=== PATIENT | male | born 1950 | race Caucasian/White ===

== ENCOUNTER → 2017-04-15 | Outpatient (CLI) | payer MEDICARE ==
--- NOTE | 2017-04-16 15:24 | XR ---
EXAMINATION TYPE: XR knee complete RT DATE OF EXAM: 04/15/2017 COMPARISON: NONE HISTORY: Right knee pain TECHNIQUE: Three-view right knee FINDINGS: Joint spaces are preserved. Medial and lateral tibial plateau and femoral condylar spurring is present. Medial distal vascular clips are present. No joint effusion is evident. IMPRESSIONS: 1. Mild degenerative changes right knee.
== END | disposition home or self-care (01) ==
LOC: RADXRYALE 14:27
PROVIDERS: ATTEND Internal Medicine Infectious Disease
DX: M17.11 Unilateral primary osteoarthritis, right knee (principal)

== ENCOUNTER → 2018-07-09 | Outpatient (CLI) | payer MEDICARE ==
[2018-07-09 15:15] LABS: HCT 37.5 % (39.0-53.0); HGB 12.7 gm/dL (13.0-17.5); MCH 27.9 pg (25.0-35.0); MCHC 33.9 g/dL (31.0-37.0); MCV 82.4 fL (80.0-100.0); Mean Platelet Volume 6.7; Platelet Count 137 k/uL (150-450); RBC 4.55 m/uL (4.30-5.90); RDW 14.1 % (11.5-15.5); WBC 6.2 k/uL (3.8-10.6)
[2018-07-09 15:22] LABS: ALT 29 U/L (21-72); AST 23 U/L (17-59); Albumin 3.9 g/dL (3.5-5.0); Alkaline Phosphatase 74 U/L (38-126); Anion Gap 6 mmol/L; Blood Urea Nitrogen 19 mg/dL (9-20); Calcium 9.5 mg/dL (8.4-10.2); Carbon Dioxide 29 mmol/L (22-30); Chloride 104 mmol/L (98-107); Glucose 176 mg/dL (74-99); Potassium 4.6 mmol/L (3.5-5.1); Sodium 139 mmol/L (137-145); Total Bilirubin 1.4 mg/dL (0.2-1.3); Total Protein 7.6 g/dL (6.3-8.2)
[2018-07-09 16:02] LABS: Erythrocyte Sedimentation Rate 51 mm/hr (0-15)
--- NOTE | 2018-07-09 17:52 | US ---
Exam: LOWER EXTREMITY VENOUS INSUFFICIENCY DATE: 07/09/2018. SIDE PERFORMED: Left FINDINGS: 1) Color flow is present and patency is documented in the following vessels. No DVT or SVT is noted . EIV Common Femoral Vein Deep Femoral Vein Femoral Vein Popliteal Vein Greater Saph Vein Upper Small Saph Vein 2) There is venous reflux noted at the following venous levels: EIV, GSV, CFV, DFV, lower femoral v ein, and mid popliteal vein. IMPRESSION: 1. No evidence for DVT within the left lower extremity imaged from the groin to the knee. 2. Venous reflux noted throughout portions of the left lower extremity as outlined above.
[2018-07-10 04:00] LABS: Hemoglobin A1C 7.9 % (4.0-6.0)
== END | disposition home or self-care (01) ==
LOC: RADUSWWP 13:14
PROVIDERS: ATTEND Internal Medicine Infectious Disease
DX: I87.2 Venous insufficiency (chronic) (peripheral) (principal); M79.605 Pain in left leg
CPT/HCPCS: 36415; 80053; 83036; 84134; 85027; 85652; 93923

== ENCOUNTER → 2019-07-13 | Outpatient (CLI) | payer MEDICARE ==
--- NOTE | 2019-07-13 10:34 | XR ---
EXAMINATION TYPE: XR knee complete LT DATE OF EXAM: 07/13/2019 CLINICAL HISTORY: Chronic left knee pain. Chronic venous hypertension with ulcer and inflammation. TECHNIQUE: Three views of the left knee are obtained. COMPARISON: None. FINDINGS: There is no acute fracture/dislocation evident in left knee. Mild narrowing medial tibiofe moral and patellofemoral compartments. Overlying PA and material distal femur level with punctate den sities could reflect soft tissue foreign body versus overlying foreign body. Correlate clinically. Va scular calcification below the knee is noted. IMPRESSION: As above.
[2019-07-13 11:48] LABS: Anisocytosis Slight; Basophils # (A) 0.1 k/uL (0-0.2); Basophils % (A) 1 %; Eosinophils # (A) 0.4 k/uL (0-0.7); Eosinophils % (A) 5 %; HCT 36.9 % (39.0-53.0); HGB 12.4 gm/dL (13.0-17.5); Lymphocytes # (A) 1.5 k/uL (1.0-4.8); Lymphocytes % (A) 19 %; MCH 28.4 pg (25.0-35.0); MCHC 33.5 g/dL (31.0-37.0); MCV 84.7 fL (80.0-100.0); Mean Platelet Volume 7.1; Monocytes # (A) 0.4 k/uL (0-1.0); Monocytes % (A) 5 %; Neutrophils # (A) 5.2 k/uL (1.3-7.7); Neutrophils % (A) 68 %; Platelet Count 154 k/uL (150-450); RBC 4.36 m/uL (4.30-5.90); WBC 7.7 k/uL (3.8-10.6)
[2019-07-13 12:46] LABS: Erythrocyte Sedimentation Rate 43 mm/hr (0-15)
[2019-07-13 16:10] LABS: African American GFR (CKD) 78.4 (60.0-200.0); Albumin 3.9 g/dL (3.80-4.90); Albumin/Globulin Ratio 1.44 (1.60-3.17); Anion Gap 5.3 mmol/L (4.00-12.00); BUN/Creat Ratio 14.55 Ratio (12.00-20.00); C Reactive Protein 0.7 mg/dL (0.0-0.8); Calcium 9.2 mg/dL (8.7-10.3); Carbon Dioxide 28.7 mmol/L (21.6-31.8); Globulin 2.7 g/dL (1.6-3.3); Potassium 4.9 mmol/L (3.5-5.5); Total Bilirubin 1.2 mg/dL (0.3-1.2); Total Protein 6.6 g/dL (6.2-8.2)
[2019-07-13 19:33] LABS: Hemoglobin A1C 8.7 % (4.0-6.0)
== END | disposition home or self-care (01) ==
LOC: LABWHC1 10:04
PROVIDERS: ATTEND Internal Medicine Infectious Disease
DX: M89.8X0 Other specified disorders of bone, multiple sites (principal); M85.88 Other specified disorders of bone density and structure, other site; I99.8 Other disorder of circulatory system; I87.333 Chronic venous hypertension (idiopathic) with ulcer and inflammation of bilateral lower extremity; E11.621 Type 2 diabetes mellitus with foot ulcer
CPT/HCPCS: 36415; 80053; 83036; 84134; 85025; 85652; 86140

== ENCOUNTER → 2020-01-12 | Outpatient (CLI) | payer MEDICARE ==
--- NOTE | 2020-01-12 11:16 | US ---
LOWER EXTREMITY VENOUS INSUFFICIENCY CLINICAL HISTORY: L97.922 NONPRESSURE CHRONIC ULCER OF UNSPECIFIED P. SIDE PERFORMED: bilateral Comparison: Prior bilateral lower extremity venous ultrasound April 20, 2015 and left lower extremity ultrasound July 09, 2018. 1) Color flow is present and patency is documented in the following vessels. No DVT or SVT is noted . EIV Common Femoral Vein Deep Femoral Vein Femoral Vein Popliteal Vein Proximal Calf Veins, not seen due to obesity and swelling Greater Saph Vein Upper Small Saph Vein, not seen due to obesity and swelling 2) There is venous reflux noted at the following venous levels: RIGHT: mild in EIV, GSV, CFV, DFV, FV prox, LEFT:EIV, GSV, CFV, DFV, FV prox, pop distal IMPRESSION: Suboptimal study due to patient's body habitus and subcutaneous edema. Visualized portion s both lower extremities show no acute DVT. Significant bilateral venous reflux noted during real balbir e scanning as documented above.
--- NOTE | 2020-01-13 11:05 | P.ARTDOP ---
Arterial Doppler LOWER EXTREMITY ARTERIAL DOPPLER: DATE OF SERVICE: 01/12/2020 Reason for study: Left calf ulcer. Doppler waveforms: Multiphasic bilaterally throughout. Pulse volume recording: Normal configurations. Pressure gradients: None. Ankle-brachial indices: Greater than 1 bilaterally. Toe brachial indices: 0.94 on the right, 0.75 on the left Impression: Normal study.
== END | disposition home or self-care (01) ==
LOC: RADUSWWP 09:09
PROVIDERS: ATTEND Internal Medicine Infectious Disease
DX: I87.312 Chronic venous hypertension (idiopathic) with ulcer of left lower extremity (principal); L97.922 Non-pressure chronic ulcer of unspecified part of left lower leg with fat layer exposed; E11.622 Type 2 diabetes mellitus with other skin ulcer
CPT/HCPCS: 93923; 93970

== ENCOUNTER → 2020-07-18 | Outpatient (CLI) | payer MEDICARE | END | disposition home or self-care (01) | LOC: LABWHC1 08:59 | DX: E03.9 Hypothyroidism, unspecified (principal) | CPT/HCPCS: 36415; 84439; 84443 ==

== ENCOUNTER 2022-04-01 17:08 | Observation (INO) | payer MEDICARE ==
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
[2022-04-01 17:46] LABS: Basophils # (A) 0.2 k/uL (0-0.2); Basophils % (A) 2 %; Eosinophils # (A) 0.4 k/uL (0-0.7); Eosinophils % (A) 4 %; HCT 40.2 % (39.0-53.0); HGB 13.2 gm/dL (13.0-17.5); Lymphocytes # (A) 1.3 k/uL (1.0-4.8); Lymphocytes % (A) 15 %; MCH 29.6 pg (25.0-35.0); MCHC 32.8 g/dL (31.0-37.0); MCV 90.3 fL (80.0-100.0); Monocytes # (A) 0.3 k/uL (0-1.0); Monocytes % (A) 3 %; Neutrophils # (A) 6.5 k/uL (1.3-7.7); Neutrophils % (A) 75 %; Platelet Count 138 k/uL (150-450); RBC 4.45 m/uL (4.30-5.90); RDW 13.8 % (11.5-15.5); WBC 8.7 k/uL (3.8-10.6)
[2022-04-01 17:54] LABS: INR 1.1 (<1.2); Partial Thromboplastin Time 24.1 sec (22.0-30.0); Prothrombin Time 11.6 sec (9.0-12.0)
[2022-04-01 17:55] LABS: ALT 36 U/L (4-49); AST 67 U/L (17-59); African American GFR (CKD) 61 (>60 ml/min/1.73 sqM); Albumin 4.1 g/dL (3.5-5.0); Alcohol <10 mg/dL; Alkaline Phosphatase 54 U/L (38-126); Anion Gap 8 mmol/L; Blood Urea Nitrogen 17 mg/dL (9-20); Calcium 8.7 mg/dL (8.4-10.2); Carbon Dioxide 27 mmol/L (22-30); Chloride 100 mmol/L (98-107); Glucose 284 mg/dL (74-99); Non-African American GFR(CKD) 53 (>60 ml/min/1.73 sqM); Potassium 4.6 mmol/L (3.5-5.1); Sodium 135 mmol/L (137-145); Total Bilirubin 1.3 mg/dL (0.2-1.3); Total Protein 7.3 g/dL (6.3-8.2)
--- NOTE | 2022-04-01 18:53 | CT ---
EXAMINATION TYPE: CT brain wo con DATE OF EXAM: 04/01/2022 COMPARISON: None HISTORY: AMS CT DLP: 1172.4 mGycm Automated exposure control for dose reduction was used. There is cerebral cortical atrophy. There is no mass effect or midline shift. No sign of intracranial hemorrhage. Calvarium is intact. There is normal aeration of the mastoid sinuses. IMPRESSION: Cerebral atrophy. No acute intracranial abnormality.
--- NOTE | 2022-04-01 18:54 | XR ---
EXAMINATION TYPE: XR chest 1V portable DATE OF EXAM: 04/01/2022 COMPARISON: 01/23/2016 HISTORY: Altered mental status TECHNIQUE: FINDINGS: There is no heart failure nor confluent pneumonic infiltrate. Costophrenic angles are clear . There are sternal wires. There are chest leads. IMPRESSION: No active cardiopulmonary disease. No change.
[2022-04-01 19:02] LABS: T4, Free (Free Thyroxine) <0.07 ng/dL (0.78-2.19)
[2022-04-01] MEDS ORDERED: LEVOTHYROXINE IVP 100 MCG/5 ML VIAL IV STA (19:29)
[2022-04-01 19:38] LABS: Acetaminophen <10.0 ug/mL; Salicylate <1.0 mg/dL
[2022-04-01] MEDS ORDERED: NALOXONE 0.4 MG/ML 1 ML VIAL IV PRN (19:46)
[2022-04-01] MEDS: SODIUM CHLORIDE 0.9% 1,000 ML IV SCH (22:51)
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
[2022-04-02 07:47] LABS: Glucose,Whole Blood 201 mg/dL (75-99)
[2022-04-02] MEDS: METOPROLOL TARTRATE 50 MG TAB PO SCH ×2 (08:17→20:14)
[2022-04-02] MEDS: DOXAZOSIN 4 MG TAB PO SCH (08:17)
[2022-04-02] MEDS: TAMSULOSIN 0.4 MG CAP.ER.24H PO SCH (08:17)
[2022-04-02] MEDS: ATORVASTATIN 40 MG TAB PO SCH (08:17)
[2022-04-02] MEDS: HEPARIN SODIUM,PORCINE/PF 5,000 UNIT/0.5 ML SYRINGE SQ SCH ×2 (08:17→17:43)
[2022-04-02] MEDS: SODIUM CHLORIDE 0.9% 1,000 ML IV SCH ×2 (09:45→20:13)
[2022-04-02] MEDS: LEVOTHYROXINE IVP 100 MCG/5 ML VIAL IV SCH (09:45)
--- NOTE | 2022-04-02 10:26 | P.PN ---
Subjective Progress Note Date: 04/02/22 Hospital course: Patient is a 71-year-old male with a past medical history of CAD with CABG, hypertension, hyperlipidemia, hypothyroidism, BPH, and insulin-dependent diabetes mellitus. Patient was brought to the ER secondary to altered mental status after his daughter reportedly found him in the chair minimally responsive and called EMS for transport to ER. He underwent full evaluation in the ER. CT head negative for acute intercranial process. Chest x-ray negative for acute c ardiopulmonary process. EKG showing sinus rhythm at 61 bpm with a first-degree AV block with MS interval of 243 ms. CBC unremarkable. Coags unremarkable. And CMP showing no significant abnormalities with the exception of mildly elevated creatinine of 1.33, hyperglycemia with glucose of 284, and elevated AST of 67. Troponin was negative at less than 0.012. Acetaminophen, salicylates, and alcohol all negative. Patient was found to have severe hypothyroidism with TSH of 65.200 and free T4 of less than 0.07. Patient started on IV Synthroid and admitted under our services. Physical exam: Patient seen and fully evaluated at bedside this morning. Patient was sitting up on the edge of bed he was alert to person, place, time, and situation. Patient has full mentation in place. Patient reports memory deficits from yesterday does not fully recall eating events leading up to coming to the hospital. Patient reports he remembers being in an ambulance, but otherwise has a lot of memory loss in regards to time. Currently patient denies having any complaints including headache, lightheadedness, dizziness, chest pain, palpitations, shortness of breath, cough or congestion, abdominal pain, nausea, vomiting, or experiencing any numbness/tingling/weakness in his extremities. Patient ambulatory with a steady gait and room. Patient reports he does have a history of hypothyroidism and was on Synthroid but states there is a strong possibility that he has not been taking that medication. Vital signs reviewed and stable. General: Nontoxic, no distress and appears stated age. Derm: Skin warm and dry, normal coloration for ethnicity. Head: Atraumatic, normocephalic and symmetric. Eyes: EOMs intact, no lid lag, and anicteric sclera Mouth: no lip lesions, mucus membranes moist Cardiovascular: regular rate and rhythm with normal S1S2, no murmur, positive posterior tibial pulses bilaterally, and cap refill < 2 seconds. Lungs: Respirations even, regular, and unlabored on room air. Lungs CTA bilaterally, no rhonchi, no rales, no wheezing, and no accessory muscle usage. Abdominal: soft, nontender to palpation, no guarding, no appreciable organomegaly Ext: ROM intact. No gross muscle atrophy, no edema, no contractures Neuro: Speech clear, face symmetrical and CN II-XII grossly intact with no noted focal neuro deficits Psych: Alert and oriented to person, place, time, and situation. Appropriate and pleasant affect. Assessment and Plan of Care: Acute metabolic encephalopathy secondary to severe hypothyroidism Severe hypothyroidism -Continue IV Synthroid may transition to oral Synthroid tomorrow morning. -Severe hypothyroidism likely secondary to noncompliance with home medication regimen as patient states there is a strong possibility that he was not taking t his medication. -Metabolic encephalopathy has resolved. History of CAD status post CABG Hypertension Hyperlipidemia -Continue daily medication regimen with atorvastatin and metoprolol. Insulin-dependent diabetes mellitus -Hold metformin, continue NPH 50 units daily along with glycemic protocol and NovoLog sliding scale. BPH -Continue daily medication regimen with CODE STATUS: Full code DVT prophylaxis: Heparin Discussed with: Patient and RN Anticipated discharge date: Tomorrow Anticipated discharge place: Home A total of 40 minutes was spent on the care of this complex patient more than 50 % of the time was spent in counseling and care coordination.I reviewed the documentation as provided by the SUZE above, who is the original author of this note. I agree with the documented assessment and plan, with the following changes: none Objective - Vital Signs Vital signs: Vital Signs Temp 98.0 F 04/02/22 07:45 Pulse 65 04/02/22 07:45 Resp 18 04/02/22 07:45 BP 101/65 04/02/22 07:45 Pulse Ox 92 L 04/02/22 07:45 FiO2 Intake & Output 04/01/22 04/02/22 04/02/22 18:59 06:59 18:59 Weight 136.078 kg 136.078 kg Other: Voiding Method Toilet # Voids 1 - Labs CBC & Chem 7: 04/01/22 17:35 04/01/22 17:35 Labs: Abnormal Lab Results - Last 24 Hours (Table) 04/01/22 04/01/22 04/02/22 Range/Units 17:35 17:35 07:46 Plt Count 138 L (150-450) k/uL Sodium 135 L (137-145) mmol/L Creatinine 1.33 H (0.66-1.25) mg/dL Glucose 284 H (74-99) mg/dL POC Glucose (mg/dL) 201 H (75-99) mg/dL AST 67 H (17-59) U/L TSH 65.200 H (0.465-4.680) mIU/L Free T4 <0.07 L (0.78-2.19) ng/dL
[2022-04-02 12:17] LABS: Glucose,Whole Blood 274 mg/dL (75-99)
[2022-04-02 17:26] LABS: Glucose,Whole Blood 321 mg/dL (75-99)
[2022-04-02] MEDS: INSULIN ASPART (NovoLOG) 100 UNIT/ML VIAL SQ SCH ×2 (17:43→21:08)
[2022-04-02 20:50] LABS: Glucose,Whole Blood 251 mg/dL (75-99)
[2022-04-03] MEDS: HEPARIN SODIUM,PORCINE/PF 5,000 UNIT/0.5 ML SYRINGE SQ SCH ×2 (00:24→08:51)
[2022-04-03 01:43] VITALS: PULSE 55
[2022-04-03 07:20] LABS: Glucose,Whole Blood 255 mg/dL (75-99)
[2022-04-03] MEDS: INSULIN ASPART (NovoLOG) 100 UNIT/ML VIAL SQ SCH (07:53)
[2022-04-03 07:55] VITALS: BP 114/59; RESP 14; TEMP 97.8
--- NOTE | 2022-04-03 08:21 | P.DS ---
Providers Date of admission: 04/01/22 19:46 Expected date of discharge: 04/03/22 Attending physician: Dave Hemphill MD Primary care physician: Stated None Hospital Course: Discharge Diagnosis: Acute metabolic encephalopathy secondary to severe hypothyroidism, metabolic encephalopathy completely resolved patient back to baseline mentation alert and oriented to person, time, place, and situation with no neurological deficits. Severe hypothyroidism, patient received 3 doses of IV level thyroxine and discharged home on levothyroxine 100 g daily. He was instructed he will need to follow up outpatient with his PCP in 1-2 days and recommended to establish care with an network support technician as well. Patient will need repeat labs for TSH levels in 4-6 weeks. History of CAD status post CABG Hypertension, continue daily medication regimen with metoprolol. Hyperlipidemia, continue daily medication management with atorvastatin. Insulin-dependent diabetes mellitus, continue daily medication regimen with metformin. BPH Continue daily medication regimen with Terazosin. Hospital Course: Patient is a 71-year-old male with a past medical history of CAD with CABG, hypertension, hyperlipidemia, hypothyroidism, BPH, and insulin-dependent diabetes mellitus. Patient was brought to the ER secondary to altered mental status after his daughter reportedly found him in the chair minimally responsive and called EMS for transport to ER. He underwent full evaluation in the ER. CT head negative for acute intercranial process. Chest x-ray negative for acute cardiopulmonary process. EKG showing sinus rhythm at 61 bpm with a first-degree AV block with MN interval of 243 ms. CBC unremarkable. Coags unremarkable. And CMP showing no significant abnormalities with the exception of mildly elevated creatinine of 1.33, hyperglycemia with glucose of 284, and elevated AST of 67. Troponin was negative at less than 0.012. Acetaminophen, salicylates, and alcohol all negative. Patient was found to have severe hypothyroidism with TSH of 65.200 and free T4 of less than 0.07. Patient started on IV Synthroid and admitted under our services. Patient received 3 doses of IV level thyroxine. Mentation completely improved and back to baseline. Patient alert and oriented to person, time, place, and situation. Patient was educated on the importance of taking medications as directed without missing any doses. Patient will need to follow up outpatient with PCP in 1-2 days and it is recommended to establish care with an network support technician as well. Patient discharged home on levothyroxine 100 g daily and will need to follow up in 4-6 weeks for repeat labs to assess Thyroid function. Physical exam: Vital signs reviewed and stable. General: Nontoxic, no distress and appears stated age. Derm: Skin warm and dry, normal coloration for ethnicity. Head: Atraumatic, normocephalic and symmetric. Eyes: EOMs intact, no lid lag, and anicteric sclera Mouth: no lip lesions, mucus membranes moist Cardiovascular: regular rate and rhythm with normal S1S2, no murmur, positive posterior tibial pulses bilaterally, and cap refill < 2 seconds. Lungs: Respirations even, regular, and unlabored on room air. Lungs CTA bilaterally, no rhonchi, no rales, no wheezing, and no accessory muscle usage. Abdominal: soft, nontender to palpation, no guarding, no appreciable organomegaly Ext: ROM intact. No gross muscle atrophy, no edema, no contractures Neuro: Speech clear, face symmetrical and CN II-XII grossly intact with no noted focal neuro deficits Psych: Alert and oriented to person, place, time, and situation. Appropriate and pleasant affect. A total of 37 minutes of time were spent preparing this complex discharge summary. Pt was discharged on 04/03/22 at 9:37 AM Cade Pennington NP rendered care for this patient independently, reviewed the findings and plan as documented in the note above. I did not physically speak with or examine the patient on this date. Patient Condition at Discharge: Stable Plan - Discharge Summary Discharge Rx Participant: No New Discharge Prescriptions: New Levothyroxine Sodium 100 mcg PO DAILY 30 Days #30 tablet Continue Tamsulosin HCl [Flomax] 0.4 mg PO DAILY Metoprolol Tartrate [Lopressor] 50 mg PO BID Atorvastatin [Lipitor] 40 mg PO DAILY Terazosin HCl 2 mg PO DAILY Insulin NPH Human Isophane [NovoLIN N] 50 units SQ DAILY metFORMIN HCL [Glucophage] 500 mg PO BID Discharge Medication List Tamsulosin HCl [Flomax] 0.4 mg PO DAILY 04/11/15 [History] Atorvastatin [Lipitor] 40 mg PO DAILY 01/23/16 [History] Metoprolol Tartrate [Lopressor] 50 mg PO BID 01/23/16 [History] Insulin NPH Human Isophane [NovoLIN N] 50 units SQ DAILY 04/01/22 [History] Terazosin HCl 2 mg PO DAILY 04/01/22 [History] metFORMIN HCL [Glucophage] 500 mg PO BID 04/01/22 [History] Levothyroxine Sodium 100 mcg PO DAILY 30 Days #30 tablet 04/03/22 [Rx] Follow up Appointment(s)/Referral(s): Anatoly Childers MD [REFERRING] - 1 Week (Establish care with an network support technician, secondary to severe hypothyroidism) Reyes Franco MD [STAFF PHYSICIAN] - 04/05/22 12:30 pm Patient Instructions/Handouts: Hypothyroidism (DC) Activity/Diet/Wound Care/Special Instructions: Activity: As tolerated. Take breaks as needed. Diet: Heart healthy and carb consistent diet. Avoid salts, or foods with hidden salts such as canned or boxed foods and frozen dinners. Extra salt makes your heart work harder and traps the fluid in your body for longer. Special Instructions: Take all of your medications as directed and remember to keep all of your doctor's appointments and follow-up as needed. It is of utmost importance that you take these medications as directed. It may be helpful to obtain a pill box from your local pharmacy to help you arrange your daily medications, Please do not miss any doses of your thyroid medication or any other medications that you are prescribed You will need to follow up outpatient with a PCP and since you do not have one, we have referred you to Dr. Franco and will make an appointment for you prior to your leaving the hospital today. You will also need to follow-up again with this doctor in 4 weeks to have your thyroid levels redrawn. Thank you for allowing us to participate in your care, it was TRULY A PLEASURE having you for my patient!!! And remember, you pinky swore you would not miss any more medications!!!!! Discharge Disposition: HOME SELF-CARE
[2022-04-03] MEDS: DOXAZOSIN 4 MG TAB PO SCH (08:51)
[2022-04-03] MEDS: LEVOTHYROXINE IVP 100 MCG/5 ML VIAL IV SCH (08:51)
[2022-04-03] MEDS: TAMSULOSIN 0.4 MG CAP.ER.24H PO SCH (08:51)
[2022-04-03] MEDS: METOPROLOL TARTRATE 50 MG TAB PO SCH (08:51)
[2022-04-03] MEDS: ATORVASTATIN 40 MG TAB PO SCH (08:55)
[2022-04-03] MEDS ORDERED: INSULIN NPH 300 UNIT/3 ML VIAL SQ SCH (09:00)
== END 2022-04-03 12:20 | disposition home or self-care (01) ==
LOC: EC 17:08 → 6NMEDSUR 19:46
PROVIDERS: ADMIT Internal Medicine; ATTEND Internal Medicine
DX: G93.41 Metabolic encephalopathy (principal); E03.9 Hypothyroidism, unspecified; I25.10 Atherosclerotic heart disease of native coronary artery without angina pectoris; I10 Essential (primary) hypertension; E78.5 Hyperlipidemia, unspecified; E11.65 Type 2 diabetes mellitus with hyperglycemia; N40.0 Benign prostatic hyperplasia without lower urinary tract symptoms; I25.2 Old myocardial infarction; E66.01 Morbid (severe) obesity due to excess calories; Z68.41 Body mass index [BMI] 40.0-44.9, adult; M10.9 Gout, unspecified; M19.90 Unspecified osteoarthritis, unspecified site; Z91.14 Patient's other noncompliance with medication regimen; Z79.4 Long term (current) use of insulin; Z79.84 Long term (current) use of oral hypoglycemic drugs; Z79.899 Other long term (current) drug therapy; Z91.09 Other allergy status, other than to drugs and biological substances; Z88.5 Allergy status to narcotic agent; Z95.1 Presence of aortocoronary bypass graft; Z86.14 Personal history of Methicillin resistant Staphylococcus aureus infection; Z98.41 Cataract extraction status, right eye; Z98.42 Cataract extraction status, left eye; Z90.49 Acquired absence of other specified parts of digestive tract; Z96.1 Presence of intraocular lens; Z71.3 Dietary counseling and surveillance; Z87.891 Personal history of nicotine dependence; Z87.01 Personal history of pneumonia (recurrent); Z83.3 Family history of diabetes mellitus; Z82.49 Family history of ischemic heart disease and other diseases of the circulatory system
CPT/HCPCS: 99285; 96376 ×2; 96361; 96372 ×2; 96374; 36415; 93005; 84439; 80053; 84443; 82533; 84484; 85025; 85610; 85730; 80143; 80179; 71045; 70450; G0378 ×3; G0480; J1644 ×2; 80320

== ENCOUNTER 2023-12-17 17:54 | Inpatient (IN) | payer MEDICARE, OTHER ==
[2023-12-17] MEDS: SODIUM CHLORIDE 0.9% 500 ML 500 ML IV SCH (18:42)
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
[2023-12-17] MEDS: ACETAMINOPHEN TAB 500 MG TAB PO STA (18:45)
[2023-12-17] MEDS: IBUPROFEN 600 MG TAB PO STA (18:45)
[2023-12-17 18:49] LABS: Basophils # (A) 0.1 k/uL (0-0.2); Basophils % (A) 1 %; Eosinophils # (A) 0.1 k/uL (0-0.7); Eosinophils % (A) 1 %; HCT 30.1 % (39.0-53.0); HGB 10.2 gm/dL (13.0-17.5); Lymphocytes # (A) 0.4 k/uL (1.0-4.8); Lymphocytes % (A) 3 %; MCH 28.4 pg (25.0-35.0); MCV 83.6 fL (80.0-100.0); Monocytes # (A) 0.6 k/uL (0-1.0); Monocytes % (A) 6 %; Neutrophils # (A) 10.1 k/uL (1.3-7.7); Neutrophils % (A) 90 %; Platelet Count 211 k/uL (150-450); Poikilocytosis Slight; RDW 14.5 % (11.5-15.5); WBC 11.3 k/uL (3.8-10.6)
[2023-12-17 18:59] LABS: ALT 21 U/L (4-49); AST 31 U/L (17-59); African American GFR (CKD) >90 (>60 ml/min/1.73 sqM); Albumin 3.3 g/dL (3.5-5.0); Alkaline Phosphatase 168 U/L (38-126); Anion Gap 9 mmol/L; Blood Urea Nitrogen 18 mg/dL (9-20); Carbon Dioxide 24 mmol/L (22-30); Chloride 101 mmol/L (98-107); Glucose 196 mg/dL (74-99); Non-African American GFR(CKD) >90 (>60 ml/min/1.73 sqM); Potassium 4.2 mmol/L (3.5-5.1); Sodium 134 mmol/L (137-145); Total Bilirubin 1.3 mg/dL (0.2-1.3); Total Protein 6.9 g/dL (6.3-8.2)
--- NOTE | 2023-12-17 19:14 | XR ---
EXAMINATION TYPE: XR chest 2V DATE OF EXAM: 12/17/2023 COMPARISON: 04/01/2022 HISTORY: 73-year-old male with fever TECHNIQUE: PA and lateral views FINDINGS: Heart normal size. Aorta and pulmonary vasculature within normal limits. Median sternotomy wires and post-CABG clips. Hyperinflation. No consolidation or pleural effusion. IMPRESSION: COPD and post CABG changes. No definite acute process.
[2023-12-17 19:19] LABS: INR 1.1 (<1.2); Partial Thromboplastin Time 23.8 sec (22.0-30.0); Prothrombin Time 11.5 sec (10.0-12.5)
[2023-12-17] MEDS: SODIUM CHLORIDE 0.9% 1,000 ML IV ONE ×2 (20:23→21:26)
[2023-12-17] MEDS ORDERED: VANCOMYCIN IV PER PHARMACY 1 EACH MISC MISCELLANE PRN (20:26)
[2023-12-17] MEDS: PIPERACILLIN-TAZOBACTAM 3.375 GM in SODIUM CHLORIDE 0.9% 100 ML IVPB STA (20:43)
--- NOTE | 2023-12-17 21:05 | XR ---
EXAMINATION TYPE: XR foot complete 3 views LT DATE OF EXAM: 12/17/2023 Comparison: Old 04/11/2015 radiographs Clinical History: 73-year-old male Osteomyelitis Findings: There is a wound along the lateral mid to lower point. Underlying lytic destruction involving both th e fifth proximal phalangeal base as well as the head and neck of the fifth metatarsal. There may be u nderlying pathologic fracture at these locations as well. Dorsal mid foot degenerative spurring. Mult iple moderate size plantar heel spur. Vascular calcifications. Impression: Soft tissue wound lateral forefoot and midfoot. Underlying lytic destruction involving both the fifth proximal phalangeal base as well as the fifth metatarsal head and neck. Correlate for a contiguous o steomyelitis and possible associated pathologic fracture.
[2023-12-17] MEDS: SODIUM CHLORIDE 0.9% 2,000 ML IV STA (21:30)
[2023-12-17] MEDS: VANCOMYCIN 1,500 MG in SODIUM CHLORIDE 0.9% 500 ML 500 ML IVPB ONE (22:04)
[2023-12-17 22:10] LABS: Appearance,Urine Clear (Clear); Bilirubin,Urine Negative (Negative); Blood,Urine Negative (Negative); Color,Urine Yellow; Glucose,Urine (UA) Negative (Negative); Ketones,Urine Negative (Negative); Leukocyte Esterase,Urine Negative (Negative); Nitrite,Urine Negative (Negative); PH, Urine 6.5 (5.0-8.0); Protein,Urine Trace (Negative); Specific Gravity,Urine 1.018 (1.001-1.035)
--- NOTE | 2023-12-18 01:21 | XR ---
EXAM: XR Chest, 1 View CLINICAL HISTORY: ITS.REASON XR Reason: central line TECHNIQUE: Frontal view of the chest. COMPARISON: No relevant prior studies available. IMPRESSION: No central line visualized. Cardiomegaly with slightly prominent interstitial markings are seen.
[2023-12-18] MEDS: PIPERACILLIN-TAZOBACTAM 3.375 GM in SODIUM CHLORIDE 0.9% 100 ML IVPB SCH (01:35)
[2023-12-18] MEDS: NOREPINEPHRINE 32 MG in SODIUM CHLORIDE 0.9% 218 ML IV ONE (01:45)
[2023-12-18 03:40] LABS: T4, Free (Free Thyroxine) 2.27 ng/dL (0.78-2.19)
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
[2023-12-18 06:56] LABS: Basophils # (A) 0.1 k/uL (0-0.2); Basophils % (A) 1 %; Eosinophils # (A) 0.1 k/uL (0-0.7); Eosinophils % (A) 1 %; HCT 29.6 % (39.0-53.0); HGB 9.6 gm/dL (13.0-17.5); Hypochromasia Slight; Lymphocytes # (A) 0.8 k/uL (1.0-4.8); Lymphocytes % (A) 8 %; MCH 28.1 pg (25.0-35.0); MCHC 32.6 g/dL (31.0-37.0); MCV 86.4 fL (80.0-100.0); Mean Platelet Volume 7.3; Monocytes # (A) 0.4 k/uL (0-1.0); Monocytes % (A) 4 %; Neutrophils # (A) 8.7 k/uL (1.3-7.7); Neutrophils % (A) 86 %; Platelet Count 205 k/uL (150-450); Poikilocytosis Slight; RBC 3.43 m/uL (4.30-5.90); RDW 14.7 % (11.5-15.5); WBC 10.1 k/uL (3.8-10.6)
[2023-12-18 07:04] LABS: African American GFR (CKD) >90 (>60 ml/min/1.73 sqM); Anion Gap 10 mmol/L; Blood Urea Nitrogen 20 mg/dL (9-20); Calcium 8.3 mg/dL (8.4-10.2); Carbon Dioxide 22 mmol/L (22-30); Chloride 104 mmol/L (98-107); Glucose 220 mg/dL (74-99); Non-African American GFR(CKD) 85 (>60 ml/min/1.73 sqM); Potassium 4.3 mmol/L (3.5-5.1); Sodium 136 mmol/L (137-145)
[2023-12-18 08:30] LABS: Glucose,Whole Blood 180 mg/dL (70-110)
[2023-12-18] MEDS ORDERED: HEPARIN SODIUM,PORCINE 5,000 UNIT/ML 1 ML VIAL SQ SCH (09:00)
[2023-12-18] MEDS: PANTOPRAZOLE 40 MG/10 ML VIAL IVP SCH (09:13)
[2023-12-18] MEDS: HEPARIN SODIUM 1,000 UN/ML (10ML VL) IV ONE (09:16)
[2023-12-18] MEDS: HEPARIN SOD,PORK IN 0.45% NACL 25,000 UNIT in 0.45% NACL 1 250ML.BAG IV SCH (09:19)
[2023-12-18 09:35] LABS: INR 1.1 (<1.2); Partial Thromboplastin Time 26.2 sec (22.0-30.0); Prothrombin Time 12.2 sec (10.0-12.5)
[2023-12-18 09:41] LABS: Basophils % (A) 1 %; Eosinophils # (A) 0.1 k/uL (0-0.7); Eosinophils % (A) 1 %; HCT 26.9 % (39.0-53.0); HGB 8.9 gm/dL (13.0-17.5); Lymphocytes # (A) 0.5 k/uL (1.0-4.8); Lymphocytes % (A) 7 %; MCH 28.3 pg (25.0-35.0); MCV 85.7 fL (80.0-100.0); Mean Platelet Volume 6.9; Monocytes # (A) 0.3 k/uL (0-1.0); Monocytes % (A) 4 %; Neutrophils # (A) 6.3 k/uL (1.3-7.7); Neutrophils % (A) 86 %; Platelet Count 168 k/uL (150-450); RBC 3.14 m/uL (4.30-5.90); RDW 14.6 % (11.5-15.5); WBC 7.3 k/uL (3.8-10.6)
[2023-12-18] MEDS: VANCOMYCIN 1,250 MG in SODIUM CHLORIDE 0.9% 250 ML IVPB SCH (10:16)
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
[2023-12-18] MEDS: ASPIRIN 81 MG PO SCH (10:34)
[2023-12-18] MEDS: METOPROLOL TARTRATE 12.5 MG TAB PO SCH (10:34)
[2023-12-18] MEDS: ATORVASTATIN 40 MG TAB PO SCH (10:35)
[2023-12-18] MEDS: LEVOTHYROXINE 112 MCG TAB PO SCH (10:36)
[2023-12-18] MEDS: TAMSULOSIN 0.4 MG CAP.ER.24H PO SCH (10:38)
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
[2023-12-18] MEDS: AMPICILLIN-SULBACTAM 3 GM in SODIUM CHLORIDE 0.9% 100 ML IVPB SCH (12:59)
[2023-12-18 18:24] LABS: Glucose,Whole Blood 211 mg/dL (70-110)
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
[2023-12-18 21:23] LABS: Glucose,Whole Blood 256 mg/dL (70-110)
[2023-12-18] MEDS: HALOPERIDOL LACTATE 5 MG/ML 1 ML VIAL IM STA (21:44)
[2023-12-18 23:14] LABS: Glucose,Whole Blood 252 mg/dL (70-110)
[2023-12-18] MEDS: INSULIN ASPART (NovoLOG) 100 UNIT/ML VIAL SQ SCH (23:23)
[2023-12-19] MEDS: HEPARIN SODIUM 1,000 UN/ML (10ML VL) IV PRN (01:52)
[2023-12-19 05:33] LABS: Glucose,Whole Blood 185 mg/dL (70-110)
[2023-12-19] MEDS: HALOPERIDOL LACTATE 5 MG/ML 1 ML VIAL IM ONE (06:06)
[2023-12-19] MEDS: VANCOMYCIN TROUGH DUE 1 EACH MISC MISCELLANE ONE (10:38)
[2023-12-19 11:28] LABS: Basophils % (A) 1 %; Eosinophils # (A) 0.3 k/uL (0-0.7); Eosinophils % (A) 6 %; HCT 27.1 % (39.0-53.0); HGB 9.1 gm/dL (13.0-17.5); Hypochromasia Slight; Lymphocytes % (A) 18 %; MCH 28.8 pg (25.0-35.0); MCHC 33.5 g/dL (31.0-37.0); MCV 85.7 fL (80.0-100.0); Mean Platelet Volume 7.3; Monocytes # (A) 0.4 k/uL (0-1.0); Monocytes % (A) 7 %; Neutrophils # (A) 3.8 k/uL (1.3-7.7); Neutrophils % (A) 67 %; Platelet Count 190 k/uL (150-450); Poikilocytosis Slight; RBC 3.16 m/uL (4.30-5.90); RDW 14.7 % (11.5-15.5); WBC 5.7 k/uL (3.8-10.6)
[2023-12-19 11:41] LABS: Prothrombin Time 11.3 sec (10.0-12.5)
[2023-12-19 11:47] LABS: Glucose,Whole Blood 194 mg/dL (70-110)
[2023-12-19 11:48] LABS: African American GFR (CKD) >90 (>60 ml/min/1.73 sqM); Anion Gap 5 mmol/L; Blood Urea Nitrogen 14 mg/dL (9-20); Calcium 8.4 mg/dL (8.4-10.2); Carbon Dioxide 24 mmol/L (22-30); Chloride 108 mmol/L (98-107); Glucose 183 mg/dL (74-99); Non-African American GFR(CKD) >90 (>60 ml/min/1.73 sqM); Sodium 137 mmol/L (137-145)
--- NOTE | 2023-12-19 11:48 | CA ---
Transthoracic Echo Report Name: Manolo Ramos Age: 73 Gender: M : 1950 Exam Date: 12/19/2023 09:42 Exam Location: [facility] Ht (in): 70 Wt (lb): 165 Ordering Physician: Dominga Thacker Attending/Referring Phys: [id number], Kedar Picking Belt Operator Lyle Ferreira RDCS Procedure CPT: Indications: LVF Cardiac Hx: Technical Quality: Fair Contrast 1: Total Dose (mL): Contrast 2: Total Dose (mL): MEASUREMENTS (Male / Female) Normal Values 2D ECHO LV Diastolic Diameter PLAX 5.1 cm 4.2 - 5.9 / 3.9 - 5.3 cm LV Systolic Diameter PLAX 3.7 cm IVS Diastolic Thickness 1.0 cm 0.6 - 1.0 / 0.6 - 0.9 cm LVPW Diastolic Thickness 0.7 cm 0.6 - 1.0 / 0.6 - 0.9 cm LV Relative Wall Thickness 0.3 Aortic Root Diameter 3.7 cm LA Systolic Diameter LX 5.3 cm 3.0 - 4.0 / 2.7 - 3.8 cm DOPPLER Mitral E Point Velocity 101.6 cm/s Mitral A Point Velocity 52.5 cm/s Mitral E to A Ratio 1.9 MV Deceleration Time 156.3 ms TR Peak Velocity 194.8 cm/s TR Peak Gradient 15.2 mmHg PV Peak Velocity 84.0 cm/s PV Peak Gradient 2.8 mmHg FINDINGS Left Ventricle Left ventricular ejection fraction is estimated at 45 %. Right Ventricle Right ventricle not well visualized. Right Atrium Right atrium not well visualized. Left Atrium Left atrial dilatation. Mitral Valve Trace mitral regurgitation. Aortic Valve Aortic valve not well visualized. Tricuspid Valve Trace to mild tricuspid regurgitation. Pulmonic Valve Pulmonic valve not well visualized. Pericardium Normal pericardium. Aorta Aorta measures 4.03cm. CONCLUSIONS Previous echo recorded on 09/06/2015. Limited study due to patient being restrained and sedated. Left ventricular ejection fraction 45% Aortic valve not well visualized however appears to have significantly decreased leaflet excursion with at least mild aortic stenosis Consider repeating transthoracic echo when patient more cooperative if clinically indicated Previewed by: Dr. Yair Pompa DO (Electronically Signed) Final Date: 19 December 2023 11:47
[2023-12-19] MEDS: IV FLUID CONTINUATION 400 ML IV ONE (13:42)
[2023-12-19 13:53] LABS: Glucose,Whole Blood 149 mg/dL (70-110)
[2023-12-19] MEDS ORDERED: ONDANSETRON 4 MG/2 ML VIAL ONE (13:53)
[2023-12-19 14:00] VITALS: BMI 22.4
--- NOTE | 2023-12-19 14:07 | P.PN ---
Subjective Progress Note Date: 12/19/23 I am seeing this patient in new consultation today December 18, 2023 in the emergency room for hypotension refractory to fluid resuscitation and requiring vasopressor support. Patient admitted with osteomyelitis of the left foot and suspected septic shock. Patient is a 73-year-old white male with past medical history significant for chronic left foot wound, diabetes mellitus, hypothyroidism, hypertension, hyperlipidemia, coronary artery disease with previous CABG, among other things. Patient is alert and oriented to self. He knows that he is at a hospital, but believes he is in [place]. He does not recall most of the events that occurred earlier yesterday. There is no family present. Apparently, the patient was found at home by his family confused and covered in feces. He was brought to the ER yesterday evening. Patient himself denies any specific complaints. He was found to be febrile with a Tmax of 102 F on arrival. He does have a chronic left foot wound, and he has been previous ly seen in the wound care center. It does not look like he has been back in some time. He states that he does not have a primary care provider. Patient is currently sitting up in the stretcher. He is alert and talkative. He is on room air. He is in no acute distress. Denies any pain. Patient has a left lateral foot wound. Left leg appears swollen and erythemic. X-ray of the Left foot revealed soft tissue wound lateral forefoot and midfoot. Underlying lytic destruction involving both the fifth proximal phalangeal base as well as the fifth metatarsal head and neck. Correlating for osteomyelitis and possible associated pathological fracture. Heart rhythm on bedside monitor appears to be atrial flutter with a rate of 58 bpm. He is hypotensive, and he has received a total of 3 L normal saline bolus per ER physician. Despite fluid resuscitation, he is requiring vasopressor support which will be started in the form of norepinephrine. The ER physician did insert a right subclavian triple-lumen catheter. No pneumothorax. For this reason, he will be admitted to the intensive care unit. CBC on arrival: WBC count 11.3, hemoglobin 10.2, hematocrit 30.1, platelets 211. BMP on arrival: Sodium 134, potassium 4.2, chloride 101, serum bicarb 24, BUN 18, creatinine 0.74, glucose 196. Lactic acid 2.5 on arrival and was down to 1.9. Urinalysis not concerning for UTI. Negative for influenza, RSV, COVID. Chest x-ray does not show acute cardiopulmonary disease. Right subclavian triple-lumen catheter appears to terminate at the Cavo-atrial junction. He is awaiting a bed in the intensive care unit. The patient is seen today December 19, 2023 in follow-up on the selective care unit. He is currently resting in bed. He is maintaining O2 saturations up to 100% on room air. He is afebrile. Hemodynamically stable. He did have some issues with confusion and combativeness through the night. ash collector is now at the bedside. Echocardiogram revealed ejection fraction of 45%. Left foot wound culture is positive for strep agalactiae group B. He has been seen by vascular surgery and the plan is for possible surgical debridement today. White count 5.7. Hemoglobin 9.1. Sodium 137. Potassium 4.0. Bicarb 24. BUN 14. Creatinine 0.62. Vancomycin trough 13.0. Continued on vancomycin and Unasyn. Objective - Vital Signs Vital signs: Vital Signs Temp 98.0 F 12/19/23 13:43 Pulse 70 12/19/23 13:43 Resp 16 12/19/23 13:43 BP 124/65 12/19/23 13:43 Pulse Ox 100 12/19/23 13:43 FiO2 Intake & Output 12/18/23 12/19/23 12/19/23 18:59 06:59 18:59 Intake Total 144.893 88.19 Output Total 350 400 Balance -205.107 -311.81 Weight 74.843 kg Intake: Intake, IV Titration 144.893 88.19 Amount Heparin Sod,Pork in 0.45% 144.893 88.19 NaCl 25,000 unit In 0.45 % NaCl 1 250ml.bag @ 12 UNITS/KG/HR 8.981 mls/hr IV .Q24H ON LICENSE OF [facility] Rx#: [id number] Output: Urine 350 400 Other: Voiding Method Urinal Urinal Incontinent - Exam GENERAL EXAM: Alert, confused 73-year-old male, appears older than stated age, in no apparent distress. HEAD: Normocephalic and atraumatic EYES: Normal reaction of pupils, equal size. NOSE: Clear with pink turbinates. THROAT: No erythema or exudates. NECK: No masses, no JVD. CHEST: No chest wall deformity. LUNGS: Equal air entry with no crackles, wheeze, rhonchi or dullness. On room air. No conversational dyspnea or accessory muscle use.. CVS: S1 and S2 normal with no audible murmur, irregular rhythm. No extra heart sounds ABDOMEN: No hepatosplenomegaly, active bowel sounds, no guarding or rigidity. SPINE: No scoliosis or deformity SKIN: There is left leg edema and erythema. There is a left lateral foot wound with minimal purulent drainage. CENTRAL NERVOUS SYSTEM: Alert and oriented to self. He is also able to accurately tell me the month. No focal deficits, tone is normal in all 4 extremities. EXTREMITIES: There is left foot edema with reduced mobility of the fifth phalange. Peripheral pulses intact. - Labs CBC & Chem 7: 12/19/23 10:19 12/19/23 10:19 Labs: Abnormal Lab Results - Last 24 Hours (Table) 12/18/23 12/18/23 12/18/23 Range/Units 14:35 18:21 21:22 RBC (4.30-5.90) m/uL Hgb (13.0-17.5) gm/dL Hct (39.0-53.0) % APTT 31.0 H (22.0-30.0) sec Chloride (98-107) mmol/L Creatinine (0.66-1.25) mg/dL Glucose (74-99) mg/dL POC Glucose (mg/dL) 211 H 256 H (70-110) mg/dL 12/18/23 12/19/23 12/19/23 Range/Units 23:12 00:59 05:32 RBC (4.30-5.90) m/uL Hgb (13.0-17.5) gm/dL Hct (39.0-53.0) % APTT 35.8 H (22.0-30.0) sec Chloride (98-107) mmol/L Creatinine (0.66-1.25) mg/dL Glucose (74-99) mg/dL POC Glucose (mg/dL) 252 H 185 H (70-110) mg/dL 12/19/23 12/19/23 12/19/23 Range/Units 10:19 10:19 10:19 RBC 3.16 L (4.30-5.90) m/uL Hgb 9.1 L (13.0-17.5) gm/dL Hct 27.1 L (39.0-53.0) % APTT 36.8 H (22.0-30.0) sec Chloride 108 H (98-107) mmol/L Creatinine 0.62 L (0.66-1.25) mg/dL Glucose 183 H (74-99) mg/dL POC Glucose (mg/dL) (70-110) mg/dL 12/19/23 12/19/23 Range/Units 11:45 13:51 RBC (4.30-5.90) m/uL Hgb (13.0-17.5) gm/dL Hct (39.0-53.0) % APTT (22.0-30.0) sec Chloride (98-107) mmol/L Creatinine (0.66-1.25) mg/dL Glucose (74-99) mg/dL POC Glucose (mg/dL) 194 H 149 H (70-110) mg/dL Microbiology - Last 24 Hours (Table) 12/17/23 18:00 Blood Culture - Preliminary Blood 12/17/23 18:15 Blood Culture - Preliminary Blood 12/17/23 18:33 Gram Stain - Preliminary Foot - Left Wound Culture - Preliminary Strep agalactiae - (group b) Assessment and Plan Assessment: Chronic left foot wound and osteomyelitis. Foot x-ray shows soft tissue wound lateral forefoot and midfoot. There is underlying lytic destruction involving both the fifth proximal phalangeal base as well as the fifth metatarsal head and neck. Correlating for contiguous osteomyelitis and possible associated patholo gical fracture. And is for possible debridement today December 19, 2023 Suspected sepsis and septic shock, secondary to above, recovered and remains off pressors Altered mental status, possible toxic metabolic encephalopathy, secondary to above Atrial fibrillation/Atrial flutter with controlled ventricular response, possibly new onset Diabetes mellitus type 2, not insulin-dependent Hypothyroidism History of hypertension History of hyperlipidemia Coronary artery disease, with previous history of CABG Former tobacco smoker Plan: The patient was seen and evaluated Labs and medications reviewed Continued on vancomycin and Unasyn Possible debridement of left foot wound today Stable and off pressors We will continue to follow I have personally seen and examined the patient, performed the documentation and the assessment and plan as written. Number of minutes spent on the visit: 10.
[2023-12-19] MEDS: DEXAMETHASONE SOD PHOSPHATE 4 MG/ML 1 ML VIAL IVP ONE (14:10)
[2023-12-19] MEDS: ONDANSETRON 4 MG/2 ML VIAL IVP ONE (14:10)
[2023-12-19] MEDS ORDERED: KETAMINE HCL IN 0.9 % NACL 50 MG/5 ML SYRINGE ONE (14:14)
[2023-12-19] MEDS ORDERED: fentaNYL (PF) 50 MCG/ML 2 ML AMP ONE (14:14)
[2023-12-19] MEDS ORDERED: MIDAZOLAM 2 MG/2 ML VIAL ONE (14:14)
[2023-12-19] MEDS ORDERED: LIDOCAINE 1% INJ 10MG/ML (20 ML MDV) ONE (14:14)
[2023-12-19] MEDS ORDERED: PROPOFOL 10 MG/ML 20 ML VIAL IV ONE (14:14)
--- NOTE | 2023-12-19 14:21 | P.PN ---
Subjective Progress Note Date: 12/19/23 Consult reason: atrial flutter, atrial fibrillation History of present illness: History of present illness: This is a 73-year-old male with past medical history of coronary artery disease with CABG details are not known, diabetes mellitus type 2, hyperlipidemia, history of ischemic cardiomyopathy with EF of 35%, hypothyroidism, benign prostatic hypertrophy, remote history of tobacco use. We have been asked to evaluate the patient for atrial fibrillation/atrial flutter. Patient came in the hospital due to chronic wound to the left foot. Family apparently found his mental status altered at home. Patient is unable to provide any reliable history. He apparently also had fevers and difficulty breathing at home. Patient had blood pressure with systolic in the 70s and started on Levophed subsequently central line was pulled out. Patient has been started on IV antibiotics and status post 3 L of IV fluids. EKG #1 atrial flutter with ventricular rate of 117 bpm, #2 atrial flutter at 56 bpm Chest x-ray: COPD and post CABG changes. No definite acute process. WBC 10.1, hemoglobin 9.6, platelet count 205. INR 1.1. Sodium 136, potassium 4.3, chloride 104, CO2 22, BUN 20 creatinine 0.87. Blood sugar 220. TSH less than 0.15 with abnormal free T4 of 2.27. Urinalysis negative for infection. Influenza A, influenza B, RSV, COVID-19 not detected. Home cardiac medications: Aspirin 81 mg daily, atorvastatin 40 mg daily, Lasix 20 mg daily, levothyroxine 280 mcg daily, Lopressor 50 mg daily, potassium chloride 10 mEq daily, also on metformin 500 mg daily. 12/19 Patient is seen today in follow-up on the cardiac stepdown unit. Patient has been quite confused and agitated and required restraints. Patient remains in atrial fibrillation with controlled rate. Blood pressure 124/65, heart rate 70, pulse ox 1% on room air. Repeat blood work reveals hemoglobin 9.1. BUN 14 creatinine 0.62. Sodium 137 potassium 4.0. Patient is scheduled for debridement of left foot wound today. Echocardiogram reveals EF of 45%. Study is limited due to patient being in restraints. Decreased leaflet excursion with at least mild aortic stenosis. Co nsider repeating echocardiogram when patient is more cooperative. Physical examination: Gen: This is a disheveled appearing 73-year-old male appears to be in no acute distress. VS: reviewed HEENT: Head is atraumatic, normocephalic. Pupils equal, round. Sclerae is anicteric. LUNGS: Clear to auscultation. No wheezes or rhonchi. No intercostal retractions. HEART: Irregular rate and rhythm. No murmur. ABDOMEN: Soft No tenderness. EXTREMITIES: Left foot wound. No calf tenderness. Assessment: New onset atrial fibrillation, atrial flutter, typical Sepsis and osteomyelitis of the left foot Hyperthyroidism Coronary artery disease with previous CABG Diabetes mellitus type 2 Hyperlipidemia History of hypothyroidism History of ischemic cardiomyopathy with previous EF of 35% Remote history of tobacco use Plan: Continue aspirin and Lipitor Continue patient on heparin drip Patient be started on Eliquis following debridement Primary to address hyperthyroidism Further recommendations to follow based upon clinical course Nurse practitioner note has been reviewed, I agree with documented findings and plan of care. Patient was seen and examined. Objective - Vital Signs Vital signs: Vital Signs Temp 97.5 F L 12/19/23 07:56 Pulse 58 L 12/19/23 07:56 Resp 18 12/19/23 07:56 BP 107/62 12/19/23 07:56 Pulse Ox 97 12/19/23 07:56 FiO2 Intake & Output 12/18/23 12/19/23 12/19/23 18:59 06:59 18:59 Intake Total 144.893 88.19 Output Total 350 Balance -205.107 88.19 Intake: Intake, IV Titration 144.893 88.19 Amount Heparin Sod,Pork in 0.45% 144.893 88.19 NaCl 25,000 unit In 0.45 % NaCl 1 250ml.bag @ 12 UNITS/KG/HR 8.981 mls/hr IV .Q24H [facility] Rx#: [id number] Output: Urine 350 Other: Voiding Method Urinal Urinal Incontinent - Labs CBC & Chem 7: 12/19/23 10:19 12/19/23 10:19 Labs: Abnormal Lab Results - Last 24 Hours (Table) 12/18/23 12/18/23 12/18/23 Range/Units 14:35 18:21 21:22 RBC (4.30-5.90) m/uL Hgb (13.0-17.5) gm/dL Hct (39.0-53.0) % APTT 31.0 H (22.0-30.0) sec POC Glucose (mg/dL) 211 H 256 H (70-110) mg/dL 12/18/23 12/19/23 12/19/23 Range/Units 23:12 00:59 05:32 RBC (4.30-5.90) m/uL Hgb (13.0-17.5) gm/dL Hct (39.0-53.0) % APTT 35.8 H (22.0-30.0) sec POC Glucose (mg/dL) 252 H 185 H (70-110) mg/dL 12/19/23 Range/Units 10:19 RBC 3.16 L (4.30-5.90) m/uL Hgb 9.1 L (13.0-17.5) gm/dL Hct 27.1 L (39.0-53.0) % APTT (22.0-30.0) sec POC Glucose (mg/dL) (70-110) mg/dL Microbiology - Last 24 Hours (Table) 12/17/23 18:00 Blood Culture - Preliminary Blood 12/17/23 18:15 Blood Culture - Preliminary Blood 12/17/23 18:33 Gram Stain - Preliminary Foot - Left Wound Culture - Preliminary Strep agalactiae - (group b)
--- NOTE | 2023-12-19 14:59 | P.OP ---
Date of Procedure: 12/19/23 Description of Procedure: SURGEON: Justa Camarillo DO CHIEF CONSOLE OPERATOR: None PREOPERATIVE DIAGNOSIS: Infected diabetic foot ulceration, chronic osteomyelitis with pathologic fracture POSTOPERATIVE DIAGNOSIS: Same. OPERATION: Left fifth toe ray amputation. ANESTHESIA: Sedation ESTIMATED BLOOD LOSS: 10 cc SPECIMENS REMOVED: Left fifth toe for disposal COMPLICATIONS: None OPERATIVE FINDINGS: Patient is a 73-year-old male with chronic history of a left lower extremity wound initially the plantar wound on his foot. He had been self caring for this and has had worsening of the wound itself. Due to this finding as well as the osteomyelitis pathologic fracture he was operative toe amputation. Risk and benefits were discussed. He seemingly understood and was willing to proceed. DESCRIPTION OF PROCEDURE: This patient was brought to the operating room and placed in supine position. IV sedation was initiated. The operative foot was prepped and draped in sterile manner. An incision was made at the base of the fifth toe deep into skin and fascia on plantar and dorsal aspect until we reached the head of the metatarsal bone. This patient had osteomyelitis and a pathologic fracture. The tendons were divided in plantar and dorsal aspects. The fifth toe was removed. Dissection was carried down through the metatarsal and the metatarsal was transected. The bone itself was not of good quality was brittle. Bleeding was controlled with electrocautery. Base of the wound looked clean, and the wound was copiously irrigated with saline. A wet-to-dry dressing was placed. The patient tolerated the procedure well.
[2023-12-19 15:05] LABS: Glucose,Whole Blood 164 mg/dL (70-110)
[2023-12-19] MEDS: LACTATED RINGERS 1,000 ML IV SCH (15:55)
[2023-12-19 16:38] LABS: Glucose,Whole Blood 169 mg/dL (70-110)
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
[2023-12-19 19:58] LABS: Glucose,Whole Blood 257 mg/dL (70-110)
[2023-12-19] MEDS: VANCOMYCIN 1,500 MG in SODIUM CHLORIDE 0.9% 500 ML 500 ML IVPB SCH (20:11)
[2023-12-19] MEDS: risperiDONE 1 MG TAB PO SCH (20:11)
[2023-12-19] MEDS: APIXABAN 5 MG TAB PO SCH (20:11)
--- NOTE | 2023-12-19 21:27 | P.PN ---
Subjective Progress Note Date: 12/19/23 Principal diagnosis: Reason for follow-up with sepsis and left diabetic foot infection/osteomyelitis Patient is a 73-year-old male with a past medical history significant for diabetes mellitus hyperlipidemia [place] prostate disorder and coronary artery disease patient apparently did have a wound to the left foot for the patient to follow at the wound care center, patient was brought into the ER for mental status changes patient was noticed to be septic from infected wound to the left foot and concern for underlying osteomyelitis. Patient is status post debridement of his left foot wound and deep cultures completed on 12/19/2023 with operative findings suggestive of osteomyelitis. On today's evaluation that is 12/19/2023 patient did have resolution of his fever and is afebrile this morning patient is breathing comfortably on room air patient is lethargic and cannot provide any history no vomiting or diarrhea has been reported. Patient white count 5.7, creatinine 0.62 cultures are pending Objective - Vital Signs Vital signs: Vital Signs Temp 97.3 F L 12/19/23 17:10 Pulse 53 L 12/19/23 17:10 Resp 15 12/19/23 17:10 BP 133/72 12/19/23 17:10 Pulse Ox 97 12/19/23 17:10 FiO2 Intake & Output 12/19/23 12/19/23 12/20/23 06:59 18:59 06:59 Intake Total 144.893 531.19 Output Total 350 410 Balance -205.107 121.19 Weight 74.843 kg Intake: IV 325 Intake, IV Titration 144.893 88.19 Amount Heparin Sod,Pork in 0.45% 144.893 88.19 NaCl 25,000 unit In 0.45 % NaCl 1 250ml.bag @ 12 UNITS/KG/HR 8.981 mls/hr IV .Q24H [facility] Rx#: [id number] Oral 118 Output: Urine 350 400 Estimated Blood Loss 10 Other: Voiding Method Urinal Urinal Incontinent - Exam GENERAL DESCRIPTION: An elderly male lying in bed in no distress RESPIRATORY SYSTEM: Unlabored breathing , decreased breath sounds at bases HEART: S1 S2 regular rate and rhythm , ABDOMEN: Soft , no tenderness EXTREMITIES: Left foot is currently dressed no drainage on the dressing - Labs CBC & Chem 7: 12/19/23 10:19 12/19/23 10:19 Labs: Abnormal Lab Results - Last 24 Hours (Table) 12/18/23 12/18/23 12/19/23 Range/Units 21:22 23:12 00:59 RBC (4.30-5.90) m/uL Hgb (13.0-17.5) gm/dL Hct (39.0-53.0) % APTT 35.8 H (22.0-30.0) sec Chloride (98-107) mmol/L Creatinine (0.66-1.25) mg/dL Glucose (74-99) mg/dL POC Glucose (mg/dL) 256 H 252 H (70-110) mg/dL 12/19/23 12/19/23 12/19/23 Range/Units 05:32 10:19 10:19 RBC 3.16 L (4.30-5.90) m/uL Hgb 9.1 L (13.0-17.5) gm/dL Hct 27.1 L (39.0-53.0) % APTT (22.0-30.0) sec Chloride 108 H (98-107) mmol/L Creatinine 0.62 L (0.66-1.25) mg/dL Glucose 183 H (74-99) mg/dL POC Glucose (mg/dL) 185 H (70-110) mg/dL 12/19/23 12/19/23 12/19/23 Range/Units 10:19 11:45 13:51 RBC (4.30-5.90) m/uL Hgb (13.0-17.5) gm/dL Hct (39.0-53.0) % APTT 36.8 H (22.0-30.0) sec Chloride (98-107) mmol/L Creatinine (0.66-1.25) mg/dL Glucose (74-99) mg/dL POC Glucose (mg/dL) 194 H 149 H (70-110) mg/dL 12/19/23 12/19/23 12/19/23 Range/Units 15:04 16:36 19:57 RBC (4.30-5.90) m/uL Hgb (13.0-17.5) gm/dL Hct (39.0-53.0) % APTT (22.0-30.0) sec Chloride (98-107) mmol/L Creatinine (0.66-1.25) mg/dL Glucose (74-99) mg/dL POC Glucose (mg/dL) 164 H 169 H 257 H (70-110) mg/dL Microbiology - Last 24 Hours (Table) 12/17/23 18:33 Gram Stain - Final Foot - Left Wound Culture - Final Strep agalactiae - (group b) 12/17/23 18:00 Blood Culture - Preliminary Blood 12/17/23 18:15 Blood Culture - Preliminary Blood Assessment and Plan (1) Infected wound Current Visit: Yes Status: Acute Code(s): T14.8XXA - OTHER INJURY OF UNSPECIFIED BODY REGION, INITIAL ENCOUNTER; L08.9 - LOCAL INFECTION OF THE SKIN AND SUBCUTANEOUS TISSUE, UNSP SNOMED Code(s): 07074357 (2) Osteomyelitis Current Visit: Yes Status: Acute Code(s): M86.9 - OSTEOMYELITIS, UNSPECIFIED SNOMED Code(s): 43478285 (3) Sepsis Current Visit: Yes Status: Acute Code(s): A41.9 - SEPSIS, UNSPECIFIED ORGANISM SNOMED Code(s): 10608386 Plan: 1patient presented to the hospital with sepsis/septic shock in this patient who did have a fever tachycardia hypotension source is likely left diabetic foot infection with a foul-smelling drainage abnormal x-ray concerning for underlying osteomyelitis we will need to cover for the polymicrobial iqra associated with a diabetic foot infection 2-patient is status post vascular surgery evaluation and debridement of the wound and deep culture 3-patient to continue with vancomycin while watching his kidney function closely along with Unasyn while waiting for the culture to finalize Dictation was produced using [employer] dictation software. please excuse any gramma tical, word or spelling errors. Time with Patient: Less than 30
[2023-12-20 06:20] LABS: Glucose,Whole Blood 216 mg/dL (70-110)
[2023-12-20] MEDS: LEVOTHYROXINE 75 MCG TAB PO SCH (06:34)
[2023-12-20 09:41] LABS: African American GFR (CKD) >90 (>60 ml/min/1.73 sqM); Non-African American GFR(CKD) >90 (>60 ml/min/1.73 sqM)
--- NOTE | 2023-12-20 10:10 | P.PN ---
Subjective Progress Note Date: 12/20/23 Principal diagnosis: Infected wound Patient seen and examined today as a follow-up. He is status post left fifth toe amputation. He was resting comfortably. States pain is well-controlled. He has been afebrile. Objective - Vital Signs Vital signs: Vital Signs Temp 97.8 F 12/20/23 04:00 Pulse 54 L 12/20/23 04:00 Resp 14 12/20/23 04:00 BP 120/76 12/20/23 04:00 Pulse Ox 97 12/20/23 04:00 FiO2 Intake & Output 12/19/23 12/20/23 12/20/23 18:59 06:59 18:59 Intake Total 531.19 10 Output Total 410 Balance 121.19 10 Weight 74.843 kg Intake: IV 325 10 Invasive Line 1 10 Intake, IV Titration 88.19 Amount Heparin Sod,Pork in 0.45% 88.19 NaCl 25,000 unit In 0.45 % NaCl 1 250ml.bag @ 12 UNITS/KG/HR 8.981 mls/hr IV .Q24H [facility] Rx#: [id number] Oral 118 Output: Urine 400 Estimated Blood Loss 10 Other: Voiding Method Urinal Toilet # Voids 1 - Exam General appearance: The patient is alert, oriented, appears in no acute distress. HET: Head is normocephalic and atraumatic. Pupils are equal and reactive. Neck: Supple. Heart: Regular. Lungs: Equal expansion, normal respiratory effort. Abdomen: Soft, nontender, nondistended. Extremities: Left dressing intact with bloody drainage. Dressing changed amputation site bed pink, small amount of bleeding. Surgical incision packed with wet-to-dry dressing, Kerlix and Coban applied Neurological: Alert and oriented. - Labs CBC & Chem 7: 12/19/23 10:19 12/20/23 08:50 Labs: Abnormal Lab Results - Last 24 Hours (Table) 12/19/23 12/19/23 12/19/23 Range/Units 10:19 10:19 10:19 RBC 3.16 L (4.30-5.90) m/uL Hgb 9.1 L (13.0-17.5) gm/dL Hct 27.1 L (39.0-53.0) % APTT 36.8 H (22.0-30.0) sec Chloride 108 H (98-107) mmol/L Creatinine 0.62 L (0.66-1.25) mg/dL Glucose 183 H (74-99) mg/dL POC Glucose (mg/dL) (70-110) mg/dL 12/19/23 12/19/23 12/19/23 Range/Units 11:45 13:51 15:04 RBC (4.30-5.90) m/uL Hgb (13.0-17.5) gm/dL Hct (39.0-53.0) % APTT (22.0-30.0) sec Chloride (98-107) mmol/L Creatinine (0.66-1.25) mg/dL Glucose (74-99) mg/dL POC Glucose (mg/dL) 194 H 149 H 164 H (70-110) mg/dL 12/19/23 12/19/23 12/20/23 Range/Units 16:36 19:57 06:19 RBC (4.30-5.90) m/uL Hgb (13.0-17.5) gm/dL Hct (39.0-53.0) % APTT (22.0-30.0) sec Chloride (98-107) mmol/L Creatinine (0.66-1.25) mg/dL Glucose (74-99) mg/dL POC Glucose (mg/dL) 169 H 257 H 216 H (70-110) mg/dL Microbiology - Last 24 Hours (Table) 12/17/23 18:00 Blood Culture - Preliminary Blood 12/17/23 18:15 Blood Culture - Preliminary Blood 12/17/23 18:33 Gram Stain - Final Foot - Left Wound Culture - Final Strep agalactiae - (group b) Assessment and Plan Assessment: 1. Infected Left foot diabetic wound status post fifth toe amputation 2. Hypotension 3. Atrial fibrillation 4. History of coronary artery disease 5. Diabetes mellitus 6. Altered mental status Plan: 1. May resume Eliquis 2. Antibiotics per recommendations from infectious disease 3. Daily dressing change left surgical incision with wet-to-dry dressing, wrap with Kerlix and Coban if needed 4. Postop shoe to left foot when ambulating 5. Consult to physical therapy. Heel walk only. The impression and plan of care has been dictated as directed. Dr. Cuppari I performed a history and examination of this patient, discussed the same with the dictator. I agree with the dictator's note ,documented as a scribe. Any additional findings or plans will be noted.
[2023-12-20 11:41] LABS: Glucose,Whole Blood 221 mg/dL (70-110)
--- NOTE | 2023-12-20 13:01 | P.PN ---
Subjective Progress Note Date: 12/20/23 Principal diagnosis: Reason for follow-up with sepsis and left diabetic foot infection/osteomyelitis Patient is a 73-year-old male with a past medical history significant for diabetes mellitus hyperlipidemia [place] prostate disorder and coronary artery disease patient apparently did have a wound to the left foot for the patient to follow at the wound care center, patient was brought into the ER for mental status changes patient was noticed to be septic from infected wound to the left foot and concern for underlying osteomyelitis. Patient is status post debridement of his left foot wound and deep cultures completed on 12/19/2023 with operative findings suggestive of osteomyelitis.Patient is status post left fifth ray to amputation completed on 12/19/2023 along with deep cultures which are pending. On today's evaluation that is 12/20/2023, the patient continues to be afebrile, the patient is on room air and breathing comfortably, the Pt is more awake alert today denies having any chest pain or cough, the patient denies having any abdominal pain no vomiting or any diarrhea has been reported by the nursing staff. Patient did have a creatinine 0.64 culture. Cocci collected blood cultures so far negative Objective - Vital Signs Vital signs: Vital Signs Temp 98.1 F 12/20/23 07:43 Pulse 53 L 12/20/23 07:43 Resp 18 12/20/23 07:43 BP 120/61 12/20/23 07:43 Pulse Ox 99 12/20/23 07:43 FiO2 Intake & Output 12/19/23 12/20/23 12/20/23 18:59 06:59 18:59 Intake Total 531.19 10 118 Output Total 410 Balance 121.19 10 118 Weight 74.843 kg Intake: IV 325 10 Invasive Line 1 10 Intake, IV Titration 88.19 Amount Heparin Sod,Pork in 0.45% 88.19 NaCl 25,000 unit In 0.45 % NaCl 1 250ml.bag @ 12 UNITS/KG/HR 8.981 mls/hr IV .Q24H [facility] Rx#: [id number] Oral 118 118 Output: Urine 400 Estimated Blood Loss 10 Other: Voiding Method Urinal Toilet # Voids 1 - Exam GENERAL DESCRIPTION: An elderly male lying in bed in no distress RESPIRATORY SYSTEM: Unlabored breathing , decreased breath sounds at bases HEART: S1 S2 regular rate and rhythm , ABDOMEN: Soft , no tenderness EXTREMITIES: Left foot is currently dressed no drainage on the dressing - Labs CBC & Chem 7: 12/19/23 10:19 12/20/23 08:50 Labs: Abnormal Lab Results - Last 24 Hours (Table) 12/19/23 12/19/23 12/19/23 Range/Units 10:19 10:19 10:19 RBC 3.16 L (4.30-5.90) m/uL Hgb 9.1 L (13.0-17.5) gm/dL Hct 27.1 L (39.0-53.0) % APTT 36.8 H (22.0-30.0) sec Chloride 108 H (98-107) mmol/L Creatinine 0.62 L (0.66-1.25) mg/dL Glucose 183 H (74-99) mg/dL POC Glucose (mg/dL) (70-110) mg/dL 12/19/23 12/19/23 12/19/23 Range/Units 11:45 13:51 15:04 RBC (4.30-5.90) m/uL Hgb (13.0-17.5) gm/dL Hct (39.0-53.0) % APTT (22.0-30.0) sec Chloride (98-107) mmol/L Creatinine (0.66-1.25) mg/dL Glucose (74-99) mg/dL POC Glucose (mg/dL) 194 H 149 H 164 H (70-110) mg/dL 12/19/23 12/19/23 12/20/23 Range/Units 16:36 19:57 06:19 RBC (4.30-5.90) m/uL Hgb (13.0-17.5) gm/dL Hct (39.0-53.0) % APTT (22.0-30.0) sec Chloride (98-107) mmol/L Creatinine (0.66-1.25) mg/dL Glucose (74-99) mg/dL POC Glucose (mg/dL) 169 H 257 H 216 H (70-110) mg/dL 12/20/23 Range/Units 08:50 RBC (4.30-5.90) m/uL Hgb (13.0-17.5) gm/dL Hct (39.0-53.0) % APTT (22.0-30.0) sec Chloride (98-107) mmol/L Creatinine 0.64 L (0.66-1.25) mg/dL Glucose (74-99) mg/dL POC Glucose (mg/dL) (70-110) mg/dL Microbiology - Last 24 Hours (Table) 12/17/23 18:00 Blood Culture - Preliminary Blood 12/17/23 18:15 Blood Culture - Preliminary Blood 12/17/23 18:33 Gram Stain - Final Foot - Left Wound Culture - Final Strep agalactiae - (group b) Assessment and Plan (1) Infected wound Current Visit: Yes Status: Acute Code(s): T14.8XXA - OTHER INJURY OF UNSPECIFIED BODY REGION, INITIAL ENCOUNTER; L08.9 - LOCAL INFECTION OF THE SKIN AND SUBCUTANEOUS TISSUE, UNSP SNOMED Code(s): 08558312 (2) Osteomyelitis Current Visit: Yes Status: Acute Code(s): M86.9 - OSTEOMYELITIS, UNSPECIFIED SNOMED Code(s): 93726915 (3) Sepsis Current Visit: Yes Status: Acute Code(s): A41.9 - SEPSIS, UNSPECIFIED ORGANISM SNOMED Code(s): 77772577 Plan: 1patient presented to the hospital with sepsis/septic shock in this patient who did have a fever tachycardia hypotension source is likely left diabetic foot infection with a foul-smelling drainage abnormal x-ray concerning for underlying osteomyelitis we will need to cover for the polymicrobial iqra associated with a diabetic foot infection 2-patient is status post vascular surgery evaluation and amputation of the left fifth toe with deep cultures pending 3-patient cultures came back positive with Streptococcus we will continue with Unasyn however discontinue vancomycin Dictation was produced using [employer] dictation software. please excuse any grammatical, word or spelling errors. Time with Patient: Less than 30
--- NOTE | 2023-12-20 14:01 | P.PN ---
Subjective Progress Note Date: 12/20/23 Consult reason: atrial flutter, atrial fibrillation History of present illness: History of present illness: This is a 73-year-old male with past medical history of coronary artery disease with CABG details are not known, diabetes mellitus type 2, hyperlipidemia, history of ischemic cardiomyopathy with EF of 35%, hypothyroidism, benign prostatic hypertrophy, remote history of tobacco use. We have been asked to evaluate the patient for atrial fibrillation/atrial flutter. Patient came in the hospital due to chronic wound to the left foot. Family apparently found his mental status altered at home. Patient is unable to provide any reliable history. He apparently also had fevers and difficulty breathing at home. Patient had blood pressure with systolic in the 70s and started on Levophed subsequently central line was pulled out. Patient has been started on IV antibiotics and status post 3 L of IV fluids. EKG #1 atrial flutter with ventricular rate of 117 bpm, #2 atrial flutter at 56 bpm Chest x-ray: COPD and post CABG changes. No definite acute process. WBC 10.1, hemoglobin 9.6, platelet count 205. INR 1.1. Sodium 136, potassium 4.3, chloride 104, CO2 22, BUN 20 creatinine 0.87. Blood sugar 220. TSH less than 0.15 with abnormal free T4 of 2.27. Urinalysis negative for infection. Influenza A, influenza B, RSV, COVID-19 not detected. Home cardiac medications: Aspirin 81 mg daily, atorvastatin 40 mg daily, Lasix 20 mg daily, levothyroxine 280 mcg daily, Lopressor 50 mg daily, potassium chloride 10 mEq daily, also on metformin 500 mg daily. 12/19 Patient is seen today in follow-up on the cardiac stepdown unit. Patient has been quite confused and agitated and required restraints. Patient remains in atrial fibrillation with controlled rate. Blood pressure 124/65, heart rate 70, pulse ox 1% on room air. Repeat blood work reveals hemoglobin 9.1. BUN 14 creatinine 0.62. Sodium 137 potassium 4.0. Patient is scheduled for debridement of left foot wound today. Echocardiogram reveals EF of 45%. Study is limited due to patient being in restraints. Decreased leaflet excursion with at least mild aortic stenosis. Co nsider repeating echocardiogram when patient is more cooperative. 12/20 Patient is more awake and alert today. He has been resumed back on Eliquis as of yesterday evening following debridement. No new concerns from the patient. No chest pain. No palpitations. Blood pressure 101/57, heart rate 50, pulse ox 98% on room air. Telemetry is atrial fibrillation controlled rate. Creatinine 0.64. Physical examination: Gen: This is a disheveled appearing 73-year-old male appears to be in no acute distress. VS: reviewed HEENT: Head is atraumatic, normocephalic. Pupils equal, round. Sclerae is ani cteric. LUNGS: Clear to auscultation. No wheezes or rhonchi. No intercostal retractions. HEART: Irregular rate and rhythm. No murmur. ABDOMEN: Soft No tenderness. EXTREMITIES: Left foot wound. No calf tenderness. Assessment: New onset atrial fibrillation, atrial flutter, typical Sepsis and osteomyelitis of the left foot Hyperthyroidism-attending to address Coronary artery disease with previous CABG Diabetes mellitus type 2 Hyperlipidemia History of hypothyroidism History of ischemic cardiomyopathy with previous EF of 35% Remote history of tobacco use Plan: Continue aspirin and Lipitor Continue Eliquis ent Primary to address hyperthyroidism Further recommendations to follow based upon clinical course Nurse practitioner note has been reviewed, I agree with documented findings and plan of care. Patient was seen and examined. Objective - Vital Signs Vital signs: Vital Signs Temp 98.0 F 12/20/23 11:48 Pulse 50 L 12/20/23 11:48 Resp 16 12/20/23 11:48 BP 101/57 12/20/23 11:48 Pulse Ox 98 12/20/23 11:48 FiO2 Intake & Output 12/19/23 12/20/23 12/20/23 18:59 06:59 18:59 Intake Total 531.19 10 118 Output Total 410 Balance 121.19 10 118 Weight 74.843 kg Intake: IV 325 10 Invasive Line 1 10 Intake, IV Titration 88.19 Amount Heparin Sod,Pork in 0.45% 88.19 NaCl 25,000 unit In 0.45 % NaCl 1 250ml.bag @ 12 UNITS/KG/HR 8.981 mls/hr IV .Q24H [facility] Rx#: [id number] Oral 118 118 Output: Urine 400 Estimated Blood Loss 10 Other: Voiding Method Urinal Toilet Toilet # Voids 1 - Labs CBC & Chem 7: 12/19/23 10:19 12/20/23 08:50 Labs: Abnormal Lab Results - Last 24 Hours (Table) 12/19/23 12/19/23 12/19/23 Range/Units 13:51 15:04 16:36 Creatinine (0.66-1.25) mg/dL POC Glucose (mg/dL) 149 H 164 H 169 H (70-110) mg/dL 12/19/23 12/20/23 12/20/23 Range/Units 19:57 06:19 08:50 Creatinine 0.64 L (0.66-1.25) mg/dL POC Glucose (mg/dL) 257 H 216 H (70-110) mg/dL 12/20/23 Range/Units 11:39 Creatinine (0.66-1.25) mg/dL POC Glucose (mg/dL) 221 H (70-110) mg/dL Microbiology - Last 24 Hours (Table) 12/17/23 18:00 Blood Culture - Preliminary Blood 12/17/23 18:15 Blood Culture - Preliminary Blood 12/17/23 18:33 Gram Stain - Final Foot - Left Wound Culture - Final Strep agalactiae - (group b)
--- NOTE | 2023-12-20 15:09 | P.PN ---
Subjective Progress Note Date: 12/20/23 I am seeing this patient in new consultation today December 18, 2023 in the emergency room for hypotension refractory to fluid resuscitation and requiring vasopressor support. Patient admitted with osteomyelitis of the left foot and suspected septic shock. Patient is a 73-year-old white male with past medical history significant for chronic left foot wound, diabetes mellitus, hypothyroidism, hypertension, hyperlipidemia, coronary artery disease with previous CABG, among other things. Patient is alert and oriented to self. He knows that he is at a hospital, but believes he is in [place]. He does not recall most of the events that occurred earlier yesterday. There is no family present. Apparently, the patient was found at home by his family confused and covered in feces. He was brought to the ER yesterday evening. Patient himself denies any specific complaints. He was found to be febrile with a Tmax of 102 F on arrival. He does have a chronic left foot wound, and he has been previous ly seen in the wound care center. It does not look like he has been back in some time. He states that he does not have a primary care provider. Patient is currently sitting up in the stretcher. He is alert and talkative. He is on room air. He is in no acute distress. Denies any pain. Patient has a left lateral foot wound. Left leg appears swollen and erythemic. X-ray of the Left foot revealed soft tissue wound lateral forefoot and midfoot. Underlying lytic destruction involving both the fifth proximal phalangeal base as well as the fifth metatarsal head and neck. Correlating for osteomyelitis and possible associated pathological fracture. Heart rhythm on bedside monitor appears to be atrial flutter with a rate of 58 bpm. He is hypotensive, and he has received a total of 3 L normal saline bolus per ER physician. Despite fluid resuscitation, he is requiring vasopressor support which will be started in the form of norepinephrine. The ER physician did insert a right subclavian triple-lumen catheter. No pneumothorax. For this reason, he will be admitted to the intensive care unit. CBC on arrival: WBC count 11.3, hemoglobin 10.2, hematocrit 30.1, platelets 211. BMP on arrival: Sodium 134, potassium 4.2, chloride 101, serum bicarb 24, BUN 18, creatinine 0.74, glucose 196. Lactic acid 2.5 on arrival and was down to 1.9. Urinalysis not concerning for UTI. Negative for influenza, RSV, COVID. Chest x-ray does not show acute cardiopulmonary disease. Right subclavian triple-lumen catheter appears to terminate at the Cavo-atrial junction. He is awaiting a bed in the intensive care unit. The patient is seen today December 19, 2023 in follow-up on the selective care unit. He is currently resting in bed. He is maintaining O2 saturations up to 100% on room air. He is afebrile. Hemodynamically stable. He did have some issues with confusion and combativeness through the night. 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 Echocardiogram revealed ejection fraction of 45%. Left foot wound culture is positive for strep agalactiae group B. He has been seen by vascular surgery and the plan is for possible surgical debridement today. White count 5.7. Hemoglobin 9.1. Sodium 137. Potassium 4.0. Bicarb 24. BUN 14. Creatinine 0.62. Vancomycin trough 13.0. Continued on vancomycin and Unasyn. The patient is seen today December 20, 2023 in follow-up on the regular floor. He is currently resting comfortably in bed. Awake and alert in no acute distress. He is maintaining O2 saturations in the 90s on room air. He is afebrile. Hemodynamically stable. He remains on vancomycin and Unasyn. He is anticoagulated with Eliquis. He is receiving lactated Ringer's at 75 MLS per hour. Left foot wound cultures positive for strep agalactiae group B. Creat inine 0.64. Glucose 221. Objective - Vital Signs Vital signs: Vital Signs Temp 98.0 F 12/20/23 11:48 Pulse 50 L 12/20/23 11:48 Resp 16 12/20/23 11:48 BP 101/57 12/20/23 11:48 Pulse Ox 98 12/20/23 11:48 FiO2 Intake & Output 12/19/23 12/20/23 12/20/23 18:59 06:59 18:59 Intake Total 531.19 10 236 Output Total 410 Balance 121.19 10 236 Weight 74.843 kg Intake: IV 325 10 Invasive Line 1 10 Intake, IV Titration 88.19 Amount Heparin Sod,Pork in 0.45% 88.19 NaCl 25,000 unit In 0.45 % NaCl 1 250ml.bag @ 12 UNITS/KG/HR 8.981 mls/hr IV .Q24H [facility] Rx#: [id number] Oral 118 236 Output: Urine 400 Estimated Blood Loss 10 Other: Voiding Method Urinal Toilet Toilet # Voids 1 2 - Exam GENERAL EXAM: Alert, confused 73-year-old male, resting in bed, on room air, in no apparent distress. HEAD: Normocephalic and atraumatic EYES: Normal reaction of pupils, equal size. NOSE: Clear with pink turbinates. THROAT: No erythema or exudates. NECK: No masses, no JVD. CHEST: No chest wall deformity. LUNGS: Equal air entry with no crackles, wheeze, rhonchi or dullness. On room air. No conversational dyspnea or accessory muscle use.. CVS: S1 and S2 normal with no audible murmur, irregular rhythm. No extra heart sounds ABDOMEN: No hepatosplenomegaly, active bowel sounds, no guarding or rigidity. SPINE: No scoliosis or deformity SKIN: There is left leg edema and erythema. There is a left lateral foot wound with minimal purulent drainage. CENTRAL NERVOUS SYSTEM: Alert and oriented to self. He is also able to accurately tell me the month. No focal deficits, tone is normal in all 4 extremities. EXTREMITIES: There is left foot edema with reduced mobility of the fifth phalange. Peripheral pulses intact. - Labs CBC & Chem 7: 12/19/23 10:19 12/20/23 08:50 Labs: Abnormal Lab Results - Last 24 Hours (Table) 12/19/23 12/19/23 12/19/23 Range/Units 15:04 16:36 19:57 Creatinine (0.66-1.25) mg/dL POC Glucose (mg/dL) 164 H 169 H 257 H (70-110) mg/dL 12/20/23 12/20/23 12/20/23 Range/Units 06:19 08:50 11:39 Creatinine 0.64 L (0.66-1.25) mg/dL POC Glucose (mg/dL) 216 H 221 H (70-110) mg/dL Microbiology - Last 24 Hours (Table) 12/17/23 18:00 Blood Culture - Preliminary Blood 12/17/23 18:15 Blood Culture - Preliminary Blood 12/17/23 18:33 Gram Stain - Final Foot - Left Wound Culture - Final Strep agalactiae - (group b) Assessment and Plan Assessment: Chronic left foot wound and osteomyelitis. Foot x-ray shows soft tissue wound l ateral forefoot and midfoot. There is underlying lytic destruction involving both the fifth proximal phalangeal base as well as the fifth metatarsal head and neck. Correlating for contiguous osteomyelitis and possible associated pathological fracture. On 12/19/2023 he had undergone amputation of the left fifth toe. Continued on vancomycin and Unasyn Suspected sepsis and septic shock, secondary to above, recovered and remains off pressors Altered mental status, possible toxic metabolic encephalopathy, secondary to above Atrial fibrillation/Atrial flutter with controlled ventricular response, possibly new onset Diabetes mellitus type 2, not insulin-dependent Hypothyroidism History of hypertension History of hyperlipidemia Coronary artery disease, with previous history of CABG Former tobacco smoker Plan: The patient was seen and evaluated Labs and medications reviewed Status post left fifth toe amputation yesterday Continued on vancomycin and Unasyn Stable and off pressors Stable and on room air We will continue to follow I have personally seen and examined the patient, performed the documentation and the assessment and plan as written. Number of minutes spent on the visit: 10.
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
[2023-12-20 16:24] LABS: Glucose,Whole Blood 288 mg/dL (70-110)
[2023-12-20 20:04] LABS: Glucose,Whole Blood 256 mg/dL (70-110)
[2023-12-20] MEDS: HALOPERIDOL LACTATE 5 MG/ML 1 ML VIAL IM STA (23:41)
[2023-12-21] MEDS: HALOPERIDOL LACTATE 5 MG/ML 1 ML VIAL IM STA (06:15)
[2023-12-21 07:58] LABS: Basophils % (A) 1 %; Eosinophils # (A) 0.5 k/uL (0-0.7); Eosinophils % (A) 9 %; HCT 26.2 % (39.0-53.0); HGB 8.7 gm/dL (13.0-17.5); Hypochromasia Slight; Lymphocytes # (A) 1.2 k/uL (1.0-4.8); Lymphocytes % (A) 20 %; MCH 28.5 pg (25.0-35.0); MCHC 33.1 g/dL (31.0-37.0); MCV 85.9 fL (80.0-100.0); Mean Platelet Volume 9.2; Monocytes # (A) 0.3 k/uL (0-1.0); Monocytes % (A) 6 %; Neutrophils # (A) 3.7 k/uL (1.3-7.7); Neutrophils % (A) 63 %; Platelet Count 145 k/uL (150-450); Poikilocytosis Slight; RBC 3.05 m/uL (4.30-5.90)
[2023-12-21 08:42] LABS: African American GFR (CKD) >90 (>60 ml/min/1.73 sqM); Anion Gap 3 mmol/L; Blood Urea Nitrogen 15 mg/dL (9-20); Calcium 8.4 mg/dL (8.4-10.2); Carbon Dioxide 27 mmol/L (22-30); Chloride 108 mmol/L (98-107); Glucose 200 mg/dL (74-99); Non-African American GFR(CKD) 89 (>60 ml/min/1.73 sqM); Potassium 4.2 mmol/L (3.5-5.1); Sodium 138 mmol/L (137-145)
--- NOTE | 2023-12-21 09:45 | P.PN ---
Subjective Progress Note Date: 12/21/23 Consult reason: atrial flutter, atrial fibrillation History of present illness: History of present illness: This is a 73-year-old male with past medical history of coronary artery disease with CABG details are not known, diabetes mellitus type 2, hyperlipidemia, history of ischemic cardiomyopathy with EF of 35%, hypothyroidism, benign prostatic hypertrophy, remote history of tobacco use. We have been asked to evaluate the patient for atrial fibrillation/atrial flutter. Patient came in the hospital due to chronic wound to the left foot. Family apparently found his mental status altered at home. Patient is unable to provide any reliable history. He apparently also had fevers and difficulty breathing at home. Patient had blood pressure with systolic in the 70s and started on Levophed subsequently central line was pulled out. Patient has been started on IV antibiotics and status post 3 L of IV fluids. EKG #1 atrial flutter with ventricular rate of 117 bpm, #2 atrial flutter at 56 bpm Chest x-ray: COPD and post CABG changes. No definite acute process. WBC 10.1, hemoglobin 9.6, platelet count 205. INR 1.1. Sodium 136, potassium 4.3, chloride 104, CO2 22, BUN 20 creatinine 0.87. Blood sugar 220. TSH less than 0.15 with abnormal free T4 of 2.27. Urinalysis negative for infection. Influenza A, influenza B, RSV, COVID-19 not detected. Home cardiac medications: Aspirin 81 mg daily, atorvastatin 40 mg daily, Lasix 20 mg daily, levothyroxine 280 mcg daily, Lopressor 50 mg daily, potassium chloride 10 mEq daily, also on metformin 500 mg daily. 12/19 Patient is seen today in follow-up on the cardiac stepdown unit. Patient has been quite confused and agitated and required restraints. Patient remains in atrial fibrillation with controlled rate. Blood pressure 124/65, heart rate 70, pulse ox 1% on room air. Repeat blood work reveals hemoglobin 9.1. BUN 14 creatinine 0.62. Sodium 137 potassium 4.0. Patient is scheduled for debridement of left foot wound today. Echocardiogram reveals EF of 45%. Study is limited due to patient being in restraints. Decreased leaflet excursion with at least mild aortic stenosis. Co nsider repeating echocardiogram when patient is more cooperative. 12/20 Patient is more awake and alert today. He has been resumed back on Eliquis as of yesterday evening following debridement. No new concerns from the patient. No chest pain. No palpitations. Blood pressure 101/57, heart rate 50, pulse ox 98% on room air. Telemetry is atrial fibrillation controlled rate. Creatinine 0.64. 12/21 Patient send status remains improved. He is maintained on aspirin and Lipitor Eliquis and Lopressor. Blood pressure 139/67, pulse ox 100% on room air, heart rate 54. Repeat blood work reveals hemoglobin 8.7, BUN 15 creatinine 0.78, potassium 4.2. Physical examination: Gen: This is a disheveled appearing 73-year-old male appears to be in no acute distress. VS: reviewed HEENT: Head is atraumatic, normocephalic. Pupils equal, round. Sclerae is anicteric. LUNGS: Clear to auscultation. No wheezes or rhonchi. No intercostal retractions. HEART: Irregular rate and rhythm. No murmur. ABDOMEN: Soft No tenderness. EXTREMITIES: Left foot wound. No calf tenderness. Assessment: New onset atrial fibrillation, atrial flutter, typical Sepsis and osteomyelitis of the left foot Hyperthyroidism Coronary artery disease with previous CABG Diabetes mellitus type 2 Hyperlipidemia History of hypothyroidism History of ischemic cardiomyopathy with previous EF of 35% Remote history of tobacco use Plan: Continue aspirin and Lipitor, Eliquis and Lopressor 12.5 mg twice daily Further recommendations to follow based upon clinical course Nurse practitioner note has been reviewed, I agree with documented findings and plan of care. Patient was seen and examined. Objective - Vital Signs Vital signs: Vital Signs Temp 97.6 F 12/21/23 08:25 Pulse 54 L 12/21/23 08:25 Resp 17 12/21/23 08:25 BP 139/67 12/21/23 08:25 Pulse Ox 100 12/21/23 08:25 FiO2 Intake & Output 12/20/23 12/21/23 12/21/23 18:59 06:59 18:59 Intake Total 816 Balance 816 Intake: Intake, IV Titration 100 Amount Ampicillin-Sulbactam 3 gm 100 In Sodium Chloride 0.9% 100 ml @ 200 mls/hr IVPB Q6HR [facility] Rx#:[id number] Oral 716 Other: Voiding Method Toilet Toilet # Voids 2 1 - Labs CBC & Chem 7: 12/21/23 07:49 02/17/24 07:49 Labs: Abnormal Lab Results - Last 24 Hours (Table) 12/20/23 12/20/23 12/20/23 Range/Units 08:50 11:39 16:23 RBC (4.30-5.90) m/uL Hgb (13.0-17.5) gm/dL Hct (39.0-53.0) % Plt Count (150-450) k/uL Creatinine 0.64 L (0.66-1.25) mg/dL POC Glucose (mg/dL) 221 H 288 H (70-110) mg/dL 12/20/23 12/21/23 Range/Units 20:03 07:49 RBC 3.05 L (4.30-5.90) m/uL Hgb 8.7 L (13.0-17.5) gm/dL Hct 26.2 L (39.0-53.0) % Plt Count 145 L (150-450) k/uL Creatinine (0.66-1.25) mg/dL POC Glucose (mg/dL) 256 H (70-110) mg/dL Microbiology - Last 24 Hours (Table) 12/19/23 14:45 Gram Stain - Preliminary Foot - Left Wound Culture - Preliminary Strep agalactiae - (group b) 12/17/23 18:00 Blood Culture - Preliminary Blood 12/17/23 18:15 Blood Culture - Preliminary Blood
[2023-12-21 11:31] LABS: Glucose,Whole Blood 242 mg/dL (70-110)
--- NOTE | 2023-12-21 11:57 | P.PN ---
Subjective Progress Note Date: 12/21/23 Principal diagnosis: Reason for follow-up with sepsis and left diabetic foot infection/osteomyelitis Patient is a 73-year-old male with a past medical history significant for diabetes mellitus hyperlipidemia [place] prostate disorder and coronary artery disease patient apparently did have a wound to the left foot for the patient to follow at the wound care center, patient was brought into the ER for mental status changes patient was noticed to be septic from infected wound to the left foot and concern for underlying osteomyelitis. Patient is status post debridement of his left foot wound and deep cultures completed on 12/19/2023 with operative findings suggestive of osteomyelitis.Patient is status post left fifth ray to amputation completed on 12/19/2023 along with deep cultures which are pending. On today's evaluation that is 12/21/2023, Patient is afebrile patient is currently on room air and denies having any shortness of breath, the patient denies any chest pain or cough, the patient denies any nausea vomiting did not have any abdominal pain and no diarrhea denies pain to the left lower extremity. Patient white count 6.0, creatinine 0.78 culture with Streptococcus agalactiae group B Objective - Vital Signs Vital signs: Vital Signs Temp 97.6 F 12/21/23 08:25 Pulse 54 L 12/21/23 08:25 Resp 17 12/21/23 08:25 BP 139/67 12/21/23 08:25 Pulse Ox 100 12/21/23 08:25 FiO2 Intake & Output 12/20/23 12/21/23 12/21/23 18:59 06:59 18:59 Intake Total 816 Balance 816 Intake: Intake, IV Titration 100 Amount Ampicillin-Sulbactam 3 gm 100 In Sodium Chloride 0.9% 100 ml @ 200 mls/hr IVPB Q6HR [facility] Rx#:[id number] Oral 716 Other: Voiding Method Toilet Toilet # Voids 2 1 - Exam GENERAL DESCRIPTION: An elderly male lying in bed in no distress RESPIRATORY SYSTEM: Unlabored breathing , decreased breath sounds at bases HEART: S1 S2 regular rate and rhythm , ABDOMEN: Soft , no tenderness EXTREMITIES: Left foot is currently dressed no drainage on the dressing - Labs CBC & Chem 7: 12/21/23 07:49 12/21/23 07:49 Labs: Abnormal Lab Results - Last 24 Hours (Table) 12/20/23 12/20/23 12/21/23 Range/Units 16:23 20:03 07:49 RBC 3.05 L (4.30-5.90) m/uL Hgb 8.7 L (13.0-17.5) gm/dL Hct 26.2 L (39.0-53.0) % Plt Count 145 L (150-450) k/uL Chloride (98-107) mmol/L Glucose (74-99) mg/dL POC Glucose (mg/dL) 288 H 256 H (70-110) mg/dL 12/21/23 12/21/23 Range/Units 07:49 11:29 RBC (4.30-5.90) m/uL Hgb (13.0-17.5) gm/dL Hct (39.0-53.0) % Plt Count (150-450) k/uL Chloride 108 H (98-107) mmol/L Glucose 200 H (74-99) mg/dL POC Glucose (mg/dL) 242 H (70-110) mg/dL Microbiology - Last 24 Hours (Table) 12/19/23 14:45 Gram Stain - Preliminary Foot - Left Wound Culture - Preliminary Strep agalactiae - (group b) 12/17/23 18:00 Blood Culture - Preliminary Blood 12/17/23 18:15 Blood Culture - Preliminary Blood Assessment and Plan (1) Infected wound Current Visit: Yes Status: Acute Code(s): T14.8XXA - OTHER INJURY OF UNSPECIFIED BODY REGION, INITIAL ENCOUNTER; L08.9 - LOCAL INFECTION OF THE SKIN AND SUBCUTANEOUS TISSUE, UNSP SNOMED Code(s): 27412561 (2) Osteomyelitis Current Visit: Yes Status: Acute Code(s): M86.9 - OSTEOMYELITIS, UNSPECIFIED SNOMED Code(s): 17912771 (3) Sepsis Current Visit: Yes Status: Acute Code(s): A41.9 - SEPSIS, UNSPECIFIED ORGANISM SNOMED Code(s): 11047582 Plan: 1patient presented to the hospital with sepsis/septic shock in this patient who did have a fever tachycardia hypotension source is likely left diabetic foot infection with a foul-smelling drainage abnormal x-ray concerning for underlying osteomyelitis we will need to cover for the polymicrobial iqra associated with a diabetic foot infection 2-patient is status post vascular surgery evaluation and amputation of the left fifth toe with deep cultures pending 3-patient initial cultures came back positive with Streptococcus agalactiae patient to continue with Unasyn will benefit from PICC line and outpatient IV a ntibiotic therapy discussed with the patient agreed with the PICC line Dictation was produced using [id number] dictation software. please excuse any grammatical, word or spelling errors. Time with Patient: Less than 30
--- NOTE | 2023-12-21 13:07 | P.PN ---
Subjective Progress Note Date: 12/21/23 This is a 73-year-old patient, with no family doctor. Family went to his house and found him to be altered mentation. Patient had had a bowel movement and was not aware of the same. Patient not sure about fever and chills. Slightly vague give during history taking. Patient is a wound on the left foot present for at least 2 months. Has not followed with a physician. Denies any pain in there. Able to walk around the house. Does live alone. December 19: Patient was agitated last night. Had to be given Haldol. Was kicking and screaming. Had to be in restraints. Doing much better this morning . Restraints taken off. Started on Resporal 1 mg at night. Later today Dr. Camarillo took the patient to the OR. Left fifth toe ray amputation carried out. December 20: Patient slept well last night. Doing well with the current dose of Haldol. This morning communicating well. Tolerated diet. On IV Unasyn. Wound culture growing Streptococcus agalactiae group B. Dressing changes in the foot per vascular. 12/21. Patient seen and examined. WBC 6, hemoglobin 8.7, platelet count 145, sodium 1 3, potassium 4.2, BUN 15, creatinine 0.78. States left foot pain has improved REVIEW OF SYSTEMS: CONSTITUTIONAL: No fever, no malaise,. CARDIOVASCULAR: No chest pain, no palpitations, no syncope. PULMONARY: No shortness of breath, no cough, GASTROINTESTINAL: No diarrhea, no nausea, no vomiting, no abdominal pain. NEUROLOGICAL: No headaches, no weakness, PHYSICAL EXAMINATION: GENERAL: The patient is alert and oriented x3, not in any acute distress. Well developed, well nourished. HEENT: Pupils are round and equally reacting to light. EOMI. No scleral icterus. No conjunctival pallor. Normocephalic, atraumatic. No pharyngeal erythema. No thyromegaly. CARDIOVASCULAR: S1 and S2 present. No murmurs, rubs, or gallops. PULMONARY: Chest is clear to auscultation, no wheezing or crackles. ABDOMEN: Soft, nontender, nondistended, normoactive bowel sounds. No palpable organomegaly. MUSCULOSKELETAL: No joint swelling or deformity. EXTREMITIES: No cyanosis, clubbing, or pedal edema. NEUROLOGICAL: Gross neurological examination did not reveal any focal deficits. SKIN: No rashes. Assessment and plan -Acute left foot acute osteomyelitis of both the fifth proximal phalangeal base of the fifth metatarsal head and neck. With associated wound. Patient did not seek to start treatment for at least for 2 months. Causing sepsis Left fifth toe ray amputation by Dr. Camarillo on December 19 IV Unasyn Vascular and ID following -Acute delirium Which agitation.: Resolved -Lactic acidosis from sepsis resolved -Hyperthyroidism from oral placement Continue Synthroid doses reduced to 150 -Diabetes mellitus type 2 on oral hypoglycemic Diabetic diet. Sliding scale insulin coverage -BPH Flomax -Atrial fibrillation flutter,rate controlled Lopressor 12.5 twice daily. Eliquis Labs and medication were reviewed.. Continue same treatment. Continue with symptomatic treatment. Resume home medication. Monitor labs and vitals. DVT and GI prophylaxis. Further recommendations as per clinical course of the patient Dictation was produced using [employer] dictation software. please excuse any grammatical, word or spelling errors. Objective - Vital Signs Vital signs: Vital Signs Temp 97.6 F 12/21/23 08:25 Pulse 54 L 12/21/23 08:25 Resp 17 12/21/23 08:25 BP 139/67 12/21/23 08:25 Pulse Ox 100 12/21/23 08:25 FiO2 Intake & Output 12/20/23 12/21/23 12/21/23 18:59 06:59 18:59 Intake Total 816 Balance 816 Intake: Intake, IV Titration 100 Amount Ampicillin-Sulbactam 3 gm 100 In Sodium Chloride 0.9% 100 ml @ 200 mls/hr IVPB Q6HR [facility] Rx#:[id number] Oral 716 Other: Voiding Method Toilet Toilet # Voids 2 1 - Labs CBC & Chem 7: 12/21/23 07:49 12/21/23 07:49 Labs: Abnormal Lab Results - Last 24 Hours (Table) 12/20/23 12/20/23 12/20/23 Range/Units 11:39 16:23 20:03 RBC (4.30-5.90) m/uL Hgb (13.0-17.5) gm/dL Hct (39.0-53.0) % Plt Count (150-450) k/uL Chloride (98-107) mmol/L Glucose (74-99) mg/dL POC Glucose (mg/dL) 221 H 288 H 256 H (70-110) mg/dL 12/21/23 12/21/23 Range/Units 07:49 07:49 RBC 3.05 L (4.30-5.90) m/uL Hgb 8.7 L (13.0-17.5) gm/dL Hct 26.2 L (39.0-53.0) % Plt Count 145 L (150-450) k/uL Chloride 108 H (98-107) mmol/L Glucose 200 H (74-99) mg/dL POC Glucose (mg/dL) (70-110) mg/dL Microbiology - Last 24 Hours (Table) 12/19/23 14:45 Gram Stain - Preliminary Foot - Left Wound Culture - Preliminary Strep agalactiae - (group b) 12/17/23 18:00 Blood Culture - Preliminary Blood 12/17/23 18:15 Blood Culture - Preliminary Blood
--- NOTE | 2023-12-21 14:26 | P.PN ---
Subjective Progress Note Date: 12/21/23 I am seeing this patient in new consultation today December 18, 2023 in the emergency room for hypotension refractory to fluid resuscitation and requiring vasopressor support. Patient admitted with osteomyelitis of the left foot and suspected septic shock. Patient is a 73-year-old white male with past medical history significant for chronic left foot wound, diabetes mellitus, hypothyroidism, hypertension, hyperlipidemia, coronary artery disease with previous CABG, among other things. Patient is alert and oriented to self. He knows that he is at a hospital, but believes he is in [place]. He does not recall most of the events that occurred earlier yesterday. There is no family present. Apparently, the patient was found at home by his family confused and covered in feces. He was brought to the ER yesterday evening. Patient himself denies any specific complaints. He was found to be febrile with a Tmax of 102 F on arrival. He does have a chronic left foot wound, and he has been previous ly seen in the wound care center. It does not look like he has been back in some time. He states that he does not have a primary care provider. Patient is currently sitting up in the stretcher. He is alert and talkative. He is on room air. He is in no acute distress. Denies any pain. Patient has a left lateral foot wound. Left leg appears swollen and erythemic. X-ray of the Left foot revealed soft tissue wound lateral forefoot and midfoot. Underlying lytic destruction involving both the fifth proximal phalangeal base as well as the fifth metatarsal head and neck. Correlating for osteomyelitis and possible associated pathological fracture. Heart rhythm on bedside monitor appears to be atrial flutter with a rate of 58 bpm. He is hypotensive, and he has received a total of 3 L normal saline bolus per ER physician. Despite fluid resuscitation, he is requiring vasopressor support which will be started in the form of norepinephrine. The ER physician did insert a right subclavian triple-lumen catheter. No pneumothorax. For this reason, he will be admitted to the intensive care unit. CBC on arrival: WBC count 11.3, hemoglobin 10.2, hematocrit 30.1, platelets 211. BMP on arrival: Sodium 134, potassium 4.2, chloride 101, serum bicarb 24, BUN 18, creatinine 0.74, glucose 196. Lactic acid 2.5 on arrival and was down to 1.9. Urinalysis not concerning for UTI. Negative for influenza, RSV, COVID. Chest x-ray does not show acute cardiopulmonary disease. Right subclavian triple-lumen catheter appears to terminate at the Cavo-atrial junction. He is awaiting a bed in the intensive care unit. The patient is seen today December 19, 2023 in follow-up on the selective care unit. He is currently resting in bed. He is maintaining O2 saturations up to 100% on room air. He is afebrile. Hemodynamically stable. He did have some issues with confusion and combativeness through the night. 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 Echocardiogram revealed ejection fraction of 45%. Left foot wound culture is positive for strep agalactiae group B. He has been seen by vascular surgery and the plan is for possible surgical debridement today. White count 5.7. Hemoglobin 9.1. Sodium 137. Potassium 4.0. Bicarb 24. BUN 14. Creatinine 0.62. Vancomycin trough 13.0. Continued on vancomycin and Unasyn. The patient is seen today December 20, 2023 in follow-up on the regular floor. He is currently resting comfortably in bed. Awake and alert in no acute distress. He is maintaining O2 saturations in the 90s on room air. He is afebrile. Hemodynamically stable. He remains on vancomycin and Unasyn. He is anticoagulated with Eliquis. He is receiving lactated Ringer's at 75 MLS per hour. Left foot wound cultures positive for strep agalactiae group B. Creat inine 0.64. Glucose 221. The patient is seen today December 21, 2023 in follow-up on the elective care unit. He is awake and alert in no acute distress. Resting quite comfortably in bed. Denies any worsening shortness of breath, cough or congestion. He is status post left fifth toe amputation. He remains on antibiotics in the form of Unasyn. Plan is for PICC line placement and continued IV therapy in the outpatient setting. White count 6.0. Hemoglobin 8.7. Platelets 145. Sodium 138. Potassium 4.2. Bicarb 27. BUN 15. Creatinine 0.78. Glucose 200. Objective - Vital Signs Vital signs: Vital Signs Temp 97.6 F 12/21/23 08:25 Pulse 54 L 12/21/23 08:25 Resp 17 12/21/23 08:25 BP 139/67 12/21/23 08:25 Pulse Ox 100 12/21/23 08:25 FiO2 Intake & Output 12/20/23 12/21/23 12/21/23 18:59 06:59 18:59 Intake Total 816 Balance 816 Intake: Intake, IV Titration 100 Amount Ampicillin-Sulbactam 3 gm 100 In Sodium Chloride 0.9% 100 ml @ 200 mls/hr IVPB Q6HR [facility] Rx#:[id number] Oral 716 Other: Voiding Method Toilet Toilet # Voids 2 1 - Exam GENERAL EXAM: Awake, alert 73-year-old male, on room air, in no apparent distress. HEAD: Normocephalic and atraumatic EYES: Normal reaction of pupils, equal size. NOSE: Clear with pink turbinates. THROAT: No erythema or exudates. NECK: No masses, no JVD. CHEST: No chest wall deformity. LUNGS: Equal air entry with no crackles, wheeze, rhonchi or dullness. On room air. No conversational dyspnea. CVS: S1 and S2 normal with no audible murmur, irregular rhythm. No extra heart sounds ABDOMEN: No hepatosplenomegaly, active bowel sounds, no guarding or rigidity. SPINE: No scoliosis or deformity SKIN: There is left leg edema and erythema. There is a left lateral foot wound with minimal purulent drainage. CENTRAL NERVOUS SYSTEM: Alert and oriented to self. He is also able to accurately tell me the month. No focal deficits, tone is normal in all 4 extremities. EXTREMITIES: There is a dressing covering the left foot. Peripheral pulses intact. - Labs CBC & Chem 7: 12/21/23 07:49 12/21/23 07:49 Labs: Abnormal Lab Results - Last 24 Hours (Table) 12/20/23 12/20/23 12/21/23 Range/Units 16:23 20:03 07:49 RBC 3.05 L (4.30-5.90) m/uL Hgb 8.7 L (13.0-17.5) gm/dL Hct 26.2 L (39.0-53.0) % Plt Count 145 L (150-450) k/uL Chloride (98-107) mmol/L Glucose (74-99) mg/dL POC Glucose (mg/dL) 288 H 256 H (70-110) mg/dL 12/21/23 12/21/23 Range/Units 07:49 11:29 RBC (4.30-5.90) m/uL Hgb (13.0-17.5) gm/dL Hct (39.0-53.0) % Plt Count (150-450) k/uL Chloride 108 H (98-107) mmol/L Glucose 200 H (74-99) mg/dL POC Glucose (mg/dL) 242 H (70-110) mg/dL Microbiology - Last 24 Hours (Table) 12/19/23 14:45 Gram Stain - Preliminary Foot - Left Wound Culture - Preliminary Strep agalactiae - (group b) 12/17/23 18:00 Blood Culture - Preliminary Blood 12/17/23 18:15 Blood Culture - Preliminary Blood Assessment and Plan Assessment: Chronic left foot wound and osteomyelitis. Foot x-ray shows soft tissue wound lateral forefoot and midfoot. There is underlying lytic destruction involving both the fifth proximal phalangeal base as well as the fifth metatarsal head and neck. Correlating for contiguous osteomyelitis and possible associated pathological fracture. On 12/19/2023 he had undergone amputation of the left fifth toe. Continued on Unasyn Suspected sepsis and septic shock, secondary to above, recovered and remains off pressors Altered mental status, possible toxic metabolic encephalopathy, secondary to above Atrial fibrillation/Atrial flutter with controlled ventricular response, possibly new onset Diabetes mellitus type 2, not insulin-dependent Hypothyroidism History of hypertension History of hyperlipidemia Coronary artery disease, with previous history of CABG Former tobacco smoker Plan: The patient was seen and evaluated Labs and medications reviewed Continued on Unasyn Plan is for PICC line placement Stable and on room air We will continue to follow I have personally seen and examined the patient, performed the documentation and the assessment and plan as written. Number of minutes spent on the visit: 10.
[2023-12-21 16:34] LABS: Glucose,Whole Blood 211 mg/dL (70-110)
[2023-12-21 20:14] LABS: Glucose,Whole Blood 251 mg/dL (70-110)
[2023-12-22 06:38] LABS: Glucose,Whole Blood 179 mg/dL (70-110)
[2023-12-22 08:26] LABS: HCT 27.8 % (39.0-53.0); HGB 9.4 gm/dL (13.0-17.5); Hypochromasia Slight; MCH 28.8 pg (25.0-35.0); MCHC 33.8 g/dL (31.0-37.0); MCV 85.3 fL (80.0-100.0); Mean Platelet Volume 7.8; Platelet Count 167 k/uL (150-450); Poikilocytosis Slight; RBC 3.26 m/uL (4.30-5.90); RDW 15.2 % (11.5-15.5); WBC 6.6 k/uL (3.8-10.6)
[2023-12-22 08:45] LABS: ALT 19 U/L (4-49); AST 26 U/L (17-59); African American GFR (CKD) >90 (>60 ml/min/1.73 sqM); Albumin 2.5 g/dL (3.5-5.0); Alkaline Phosphatase 103 U/L (38-126); Anion Gap 3 mmol/L; Blood Urea Nitrogen 14 mg/dL (9-20); Calcium 8.7 mg/dL (8.4-10.2); Carbon Dioxide 26 mmol/L (22-30); Chloride 106 mmol/L (98-107); Glucose 198 mg/dL (74-99); Non-African American GFR(CKD) >90 (>60 ml/min/1.73 sqM); Potassium 4.2 mmol/L (3.5-5.1); Sodium 135 mmol/L (137-145); Total Bilirubin 0.7 mg/dL (0.2-1.3); Total Protein 5.7 g/dL (6.3-8.2)
--- NOTE | 2023-12-22 11:20 | P.PN ---
Subjective Progress Note Date: 12/22/23 Consult reason: atrial flutter, atrial fibrillation History of present illness: History of present illness: This is a 73-year-old male with past medical history of coronary artery disease with CABG details are not known, diabetes mellitus type 2, hyperlipidemia, history of ischemic cardiomyopathy with EF of 35%, hypothyroidism, benign prostatic hypertrophy, remote history of tobacco use. We have been asked to evaluate the patient for atrial fibrillation/atrial flutter. Patient came in the hospital due to chronic wound to the left foot. Family apparently found his mental status altered at home. Patient is unable to provide any reliable history. He apparently also had fevers and difficulty breathing at home. Patient had blood pressure with systolic in the 70s and started on Levophed subsequently central line was pulled out. Patient has been started on IV antibiotics and status post 3 L of IV fluids. EKG #1 atrial flutter with ventricular rate of 117 bpm, #2 atrial flutter at 56 bpm Chest x-ray: COPD and post CABG changes. No definite acute process. WBC 10.1, hemoglobin 9.6, platelet count 205. INR 1.1. Sodium 136, potassium 4.3, chloride 104, CO2 22, BUN 20 creatinine 0.87. Blood sugar 220. TSH less than 0.15 with abnormal free T4 of 2.27. Urinalysis negative for infection. Influenza A, influenza B, RSV, COVID-19 not detected. Home cardiac medications: Aspirin 81 mg daily, atorvastatin 40 mg daily, Lasix 20 mg daily, levothyroxine 280 mcg daily, Lopressor 50 mg daily, potassium chloride 10 mEq daily, also on metformin 500 mg daily. 12/19 Patient is seen today in follow-up on the cardiac stepdown unit. Patient has been quite confused and agitated and required restraints. Patient remains in atrial fibrillation with controlled rate. Blood pressure 124/65, heart rate 70, pulse ox 1% on room air. Repeat blood work reveals hemoglobin 9.1. BUN 14 creatinine 0.62. Sodium 137 potassium 4.0. Patient is scheduled for debridement of left foot wound today. Echocardiogram reveals EF of 45%. Study is limited due to patient being in restraints. Decreased leaflet excursion with at least mild aortic stenosis. Co nsider repeating echocardiogram when patient is more cooperative. 12/20 Patient is more awake and alert today. He has been resumed back on Eliquis as of yesterday evening following debridement. No new concerns from the patient. No chest pain. No palpitations. Blood pressure 101/57, heart rate 50, pulse ox 98% on room air. Telemetry is atrial fibrillation controlled rate. Creatinine 0.64. 12/21 Patient send status remains improved. He is maintained on aspirin and Lipitor Eliquis and Lopressor. Blood pressure 139/67, pulse ox 100% on room air, heart rate 54. Repeat blood work reveals hemoglobin 8.7, BUN 15 creatinine 0.78, potassium 4.2. 12/22 No new concerns from the patient. Blood pressure 153/76, heart rate 75, pulse ox 95% on room air. WBC 6.6, hemoglobin 9.4, platelet count 167. Creatinine 0.7, potassium 4.2. Plan is for patient to get a PICC line tomorrow and home following that. Physical examination: Gen: This is a disheveled appearing 73-year-old male appears to be in no acute distress. VS: reviewed HEENT: Head is atraumatic, normocephalic. Pupils equal, round. Sclerae is anicteric. LUNGS: Clear to auscultation. No wheezes or rhonchi. No intercostal retractio ns. HEART: Irregular rate and rhythm. No murmur. ABDOMEN: Soft No tenderness. EXTREMITIES: Left foot wound. No calf tenderness. Assessment: New onset atrial fibrillation, atrial flutter, typical Sepsis and osteomyelitis of the left foot Hyperthyroidism Coronary artery disease with previous CABG Diabetes mellitus type 2 Hyperlipidemia History of hypothyroidism History of ischemic cardiomyopathy with previous EF of 35% Remote history of tobacco use Plan: Continue aspirin and Lipitor, Eliquis and Lopressor 12.5 mg twice daily. Hold Eliquis for PICC line tomorrow Cardiology will sign off this case and follow on an as-needed basis. Please reconsult for any new concerns. Patient may follow-up in the office in 4 weeks. Nurse practitioner note has been reviewed, I agree with documented findings and plan of care. Patient was seen and examined. Objective - Vital Signs Vital signs: Vital Signs Temp 97.6 F 12/21/23 19:51 Pulse 75 12/22/23 04:00 Resp 18 12/22/23 04:00 BP 152/78 12/22/23 04:00 Pulse Ox 95 12/22/23 04:00 FiO2 Intake & Output 12/21/23 12/22/23 12/22/23 18:59 06:59 18:59 Intake Total 1060 480 Balance 1060 480 Intake: Intake, IV Titration 100 Amount Ampicillin-Sulbactam 3 gm 100 In Sodium Chloride 0.9% 100 ml @ 200 mls/hr IVPB Q6HR [facility] Rx#:[id number] Oral 960 480 Other: Voiding Method Toilet Toilet # Voids 4 1 - Labs CBC & Chem 7: 12/22/23 07:51 12/22/23 07:51 Labs: Abnormal Lab Results - Last 24 Hours (Table) 12/21/23 12/21/23 12/21/23 Range/Units 11:29 16:32 20:12 RBC (4.30-5.90) m/uL Hgb (13.0-17.5) gm/dL Hct (39.0-53.0) % Sodium (137-145) mmol/L Glucose (74-99) mg/dL POC Glucose (mg/dL) 242 H 211 H 251 H (70-110) mg/dL Total Protein (6.3-8.2) g/dL Albumin (3.5-5.0) g/dL 12/22/23 12/22/23 12/22/23 Range/Units 06:37 07:51 07:51 RBC 3.26 L (4.30-5.90) m/uL Hgb 9.4 L (13.0-17.5) gm/dL Hct 27.8 L (39.0-53.0) % Sodium 135 L (137-145) mmol/L Glucose 198 H (74-99) mg/dL POC Glucose (mg/dL) 179 H (70-110) mg/dL Total Protein 5.7 L (6.3-8.2) g/dL Albumin 2.5 L (3.5-5.0) g/dL Microbiology - Last 24 Hours (Table) 12/19/23 14:45 Gram Stain - Final Foot - Left Wound Culture - Final Strep agalactiae - (group b) 12/17/23 18:00 Blood Culture - Preliminary Blood 12/17/23 18:15 Blood Culture - Preliminary Blood
[2023-12-22 11:51] LABS: Glucose,Whole Blood 179 mg/dL (70-110)
--- NOTE | 2023-12-22 12:13 | P.PN ---
Subjective Progress Note Date: 12/22/23 I am seeing this patient in new consultation today December 18, 2023 in the emergency room for hypotension refractory to fluid resuscitation and requiring vasopressor support. Patient admitted with osteomyelitis of the left foot and suspected septic shock. Patient is a 73-year-old white male with past medical history significant for chronic left foot wound, diabetes mellitus, hypothyroidism, hypertension, hyperlipidemia, coronary artery disease with previous CABG, among other things. Patient is alert and oriented to self. He knows that he is at a hospital, but believes he is in [place]. He does not recall most of the events that occurred earlier yesterday. There is no family present. Apparently, the patient was found at home by his family confused and covered in feces. He was brought to the ER yesterday evening. Patient himself denies any specific complaints. He was found to be febrile with a Tmax of 102 F on arrival. He does have a chronic left foot wound, and he has been previous ly seen in the wound care center. It does not look like he has been back in some time. He states that he does not have a primary care provider. Patient is currently sitting up in the stretcher. He is alert and talkative. He is on room air. He is in no acute distress. Denies any pain. Patient has a left lateral foot wound. Left leg appears swollen and erythemic. X-ray of the Left foot revealed soft tissue wound lateral forefoot and midfoot. Underlying lytic destruction involving both the fifth proximal phalangeal base as well as the fifth metatarsal head and neck. Correlating for osteomyelitis and possible associated pathological fracture. Heart rhythm on bedside monitor appears to be atrial flutter with a rate of 58 bpm. He is hypotensive, and he has received a total of 3 L normal saline bolus per ER physician. Despite fluid resuscitation, he is requiring vasopressor support which will be started in the form of norepinephrine. The ER physician did insert a right subclavian triple-lumen catheter. No pneumothorax. For this reason, he will be admitted to the intensive care unit. CBC on arrival: WBC count 11.3, hemoglobin 10.2, hematocrit 30.1, platelets 211. BMP on arrival: Sodium 134, potassium 4.2, chloride 101, serum bicarb 24, BUN 18, creatinine 0.74, glucose 196. Lactic acid 2.5 on arrival and was down to 1.9. Urinalysis not concerning for UTI. Negative for influenza, RSV, COVID. Chest x-ray does not show acute cardiopulmonary disease. Right subclavian triple-lumen catheter appears to terminate at the Cavo-atrial junction. He is awaiting a bed in the intensive care unit. The patient is seen today December 19, 2023 in follow-up on the selective care unit. He is currently resting in bed. He is maintaining O2 saturations up to 100% on room air. He is afebrile. Hemodynamically stable. He did have some issues with confusion and combativeness through the night. ssis architect is now at the bedside. Echocardiogram revealed ejection fraction of 45%. Left foot wound culture is positive for strep agalactiae group B. He has been seen by vascular surgery and the plan is for possible surgical debridement today. White count 5.7. Hemoglobin 9.1. Sodium 137. Potassium 4.0. Bicarb 24. BUN 14. Creatinine 0.62. Vancomycin trough 13.0. Continued on vancomycin and Unasyn. The patient is seen today December 20, 2023 in follow-up on the regular floor. He is currently resting comfortably in bed. Awake and alert in no acute distress. He is maintaining O2 saturations in the 90s on room air. He is afebrile. Hemodynamically stable. He remains on vancomycin and Unasyn. He is anticoagulated with Eliquis. He is receiving lactated Ringer's at 75 MLS per hour. Left foot wound cultures positive for strep agalactiae group B. Creat inine 0.64. Glucose 221. The patient is seen today December 21, 2023 in follow-up on the elective care unit. He is awake and alert in no acute distress. Resting quite comfortably in bed. Denies any worsening shortness of breath, cough or congestion. He is status post left fifth toe amputation. He remains on antibiotics in the form of Unasyn. Plan is for PICC line placement and continued IV therapy in the outpatient setting. White count 6.0. Hemoglobin 8.7. Platelets 145. Sodium 138. Potassium 4.2. Bicarb 27. BUN 15. Creatinine 0.78. Glucose 200. The patient is seen today December 22, 2023 and follow-up on the selective care unit. He is currently resting comfortably in bed. Awake and alert in no acute distress. He denies any shortness of breath, cough or congestion. He is maintaining good O2 saturations in the 90s on room air. White count 6.6. Hemoglobin 9.4. Platelets 167. Sodium 135. Potassium 4.2 Bicarb 26. BUN 14. Creatinine 0.70. Glucose 198. He remains on Unasyn. Plan is for PICC line placement tomorrow. He is status post left fifth toe amputation. The wound was positive for strep agalactiae, group B. Objective - Vital Signs Vital signs: Vital Signs Temp 98.1 F 12/22/23 08:45 Pulse 75 12/22/23 08:45 Resp 17 12/22/23 08:45 BP 153/76 12/22/23 08:45 Pulse Ox 95 12/22/23 08:45 FiO2 Intake & Output 12/21/23 12/22/23 12/22/23 18:59 06:59 18:59 Intake Total 1060 480 Balance 1060 480 Intake: Intake, IV Titration 100 Amount Ampicillin-Sulbactam 3 gm 100 In Sodium Chloride 0.9% 100 ml @ 200 mls/hr IVPB Q6HR [facility] Rx#:[id number] Oral 960 480 Other: Voiding Method Toilet Toilet Toilet # Voids 4 1 - Exam GENERAL EXAM: Awake, alert pleasant 73-year-old male, on room air, resting comfortably in bed, in no apparent distress. HEAD: Normocephalic and atraumatic EYES: Normal reaction of pupils, equal size. NOSE: Clear with pink turbinates. THROAT: No erythema or exudates. NECK: No masses, no JVD. CHEST: No chest wall deformity. LUNGS: Equal air entry with no crackles, wheeze, rhonchi or dullness. On room air. No conversational dyspnea. CVS: S1 and S2 normal with no audible murmur, irregular rhythm. No extra heart sounds ABDOMEN: No hepatosplenomegaly, active bowel sounds, no guarding or rigidity. SPINE: No scoliosis or deformity SKIN: There is left leg edema and erythema. There is a left lateral foot wound with minimal purulent drainage. CENTRAL NERVOUS SYSTEM: Alert and oriented to self. He is also able to accurately tell me the month. No focal deficits, tone is normal in all 4 extremities. EXTREMITIES: There is a dressing covering the left foot. Peripheral pulses intact. - Labs CBC & Chem 7: 12/22/23 07:51 12/22/23 07:51 Labs: Abnormal Lab Results - Last 24 Hours (Table) 12/21/23 12/21/23 12/22/23 Range/Units 16:32 20:12 06:37 RBC (4.30-5.90) m/uL Hgb (13.0-17.5) gm/dL Hct (39.0-53.0) % Sodium (137-145) mmol/L Glucose (74-99) mg/dL POC Glucose (mg/dL) 211 H 251 H 179 H (70-110) mg/dL Total Protein (6.3-8.2) g/dL Albumin (3.5-5.0) g/dL 12/22/23 12/22/23 12/22/23 Range/Units 07:51 07:51 11:49 RBC 3.26 L (4.30-5.90) m/uL Hgb 9.4 L (13.0-17.5) gm/dL Hct 27.8 L (39.0-53.0) % Sodium 135 L (137-145) mmol/L Glucose 198 H (74-99) mg/dL POC Glucose (mg/dL) 179 H (70-110) mg/dL Total Protein 5.7 L (6.3-8.2) g/dL Albumin 2.5 L (3.5-5.0) g/dL Microbiology - Last 24 Hours (Table) 12/19/23 14:45 Gram Stain - Final Foot - Left Wound Culture - Final Strep agalactiae - (group b) Assessment and Plan Assessment: Chronic left foot wound and osteomyelitis. Foot x-ray shows soft tissue wound lateral forefoot and midfoot. There is underlying lytic destruction involving both the fifth proximal phalangeal base as well as the fifth metatarsal head and neck. Correlating for contiguous osteomyelitis and possible associated patholog ical fracture. Wound was positive for strep agalactiae, group B on 12/19/2023. He had undergone amputation of the left fifth toe. Continued on Unasyn Suspected sepsis and septic shock, secondary to above, recovered and remains off pressors Altered mental status, possible toxic metabolic encephalopathy, secondary to above, recovered Atrial fibrillation/Atrial flutter with controlled ventricular response, possibly new onset Diabetes mellitus type 2, not insulin-dependent Hypothyroidism History of hypertension History of hyperlipidemia Coronary artery disease, with previous history of CABG Former tobacco smoker Plan: The patient was seen and evaluated Labs and medications reviewed Continued on Unasyn Plan is for PICC line placement Stable and on room air Increase his activity as tolerated Plan will be home with home care at discharge This patient was seen independently by the pulmonary nurse practitioner addressing pulmonary issues I have personally seen and examined the patient, performed the documentation and the assessment and plan as written. Number of minutes spent on the visit: 22.
--- NOTE | 2023-12-22 13:04 | P.PN ---
Subjective Progress Note Date: 12/22/23 This is a 73-year-old patient, with no family doctor. Family went to his house and found him to be altered mentation. Patient had had a bowel movement and was not aware of the same. Patient not sure about fever and chills. Slightly vague give during history taking. Patient is a wound on the left foot present for at least 2 months. Has not followed with a physician. Denies any pain in there. Able to walk around the house. Does live alone. December 19: Patient was agitated last night. Had to be given Haldol. Was kicking and screaming. Had to be in restraints. Doing much better this morning . Restraints taken off. Started on Resporal 1 mg at night. Later today Dr. Camarillo took the patient to the OR. Left fifth toe ray amputation carried out. December 20: Patient slept well last night. Doing well with the current dose of Haldol. This morning communicating well. Tolerated diet. On IV Unasyn. Wound culture growing Streptococcus agalactiae group B. Dressing changes in the foot per vascular. 12/21. Patient seen and examined. WBC 6, hemoglobin 8.7, platelet count 145, sodium 1 3, potassium 4.2, BUN 15, creatinine 0.78. States left foot pain has improved 12/22. Patient seen and examined. Laying comfortably in the bed states pain in left foot has improved. Vital signs stable REVIEW OF SYSTEMS: CONSTITUTIONAL: No fever, no malaise,. CARDIOVASCULAR: No chest pain, no palpitations, no syncope. PULMONARY: No shortness of breath, no cough, GASTROINTESTINAL: No diarrhea, no nausea, no vomiting, no abdominal pain. NEUROLOGICAL: No headaches, no weakness, PHYSICAL EXAMINATION: GENERAL: The patient is alert and oriented x3, not in any acute distress. Well developed, well nourished. HEENT: Pupils are round and equally reacting to light. EOMI. No scleral icterus. No conjunctival pallor. Normocephalic, atraumatic. No pharyngeal erythema. No thyromegaly. CARDIOVASCULAR: S1 and S2 present. No murmurs, rubs, or gallops. PULMONARY: Chest is clear to auscultation, no wheezing or crackles. ABDOMEN: Soft, nontender, nondistended, normoactive bowel sounds. No palpable organomegaly. MUSCULOSKELETAL: Left foot dressing seen EXTREMITIES: No cyanosis, clubbing, or pedal edema. NEUROLOGICAL: Gross neurological examination did not reveal any focal deficits. SKIN: No rashes. Assessment and plan -Acute left foot acute osteomyelitis of both the fifth proximal phalangeal base of the fifth metatarsal head and neck. sepsis Monitor vital signs monitor CBC Monitor CMP Left fifth toe ray amputation by Dr. Camarillo on December 19 IV Unasyn Vascular and ID following -Acute delirium Resolved -Lactic acidosis from sepsis resolved -Hyperthyroidism from oral placement Continue Synthroid doses reduced to 150 -Diabetes mellitus type 2 on oral hypoglycemic Diabetic diet. Sliding scale insulin coverage -BPH Flomax -Atrial fibrillation flutter,rate controlled Lopressor 12.5 twice daily. Eliquis Labs and medication were reviewed.. Continue same treatment. Continue with symptomatic treatment. Resume home medication. Monitor labs and vitals. DVT and GI prophylaxis. Further recommendations as per clinical course of the p atient Dictation was produced using [employer] dictation software. please excuse any grammatical, word or spelling errors. Objective - Vital Signs Vital signs: Vital Signs Temp 97.6 F 12/21/23 19:51 Pulse 75 12/22/23 04:00 Resp 18 12/22/23 04:00 BP 152/78 12/22/23 04:00 Pulse Ox 95 12/22/23 04:00 FiO2 Intake & Output 12/21/23 12/22/23 12/22/23 18:59 06:59 18:59 Intake Total 1060 480 Balance 1060 480 Intake: Intake, IV Titration 100 Amount Ampicillin-Sulbactam 3 gm 100 In Sodium Chloride 0.9% 100 ml @ 200 mls/hr IVPB Q6HR [facility] Rx#:[id number] Oral 960 480 Other: Voiding Method Toilet Toilet # Voids 4 1 - Labs CBC & Chem 7: 12/22/23 07:51 12/22/23 07:51 Labs: Abnormal Lab Results - Last 24 Hours (Table) 12/21/23 12/21/23 12/21/23 Range/Units 11:29 16:32 20:12 RBC (4.30-5.90) m/uL Hgb (13.0-17.5) gm/dL Hct (39.0-53.0) % Sodium (137-145) mmol/L Glucose (74-99) mg/dL POC Glucose (mg/dL) 242 H 211 H 251 H (70-110) mg/dL Total Protein (6.3-8.2) g/dL Albumin (3.5-5.0) g/dL 12/22/23 12/22/23 12/22/23 Range/Units 06:37 07:51 07:51 RBC 3.26 L (4.30-5.90) m/uL Hgb 9.4 L (13.0-17.5) gm/dL Hct 27.8 L (39.0-53.0) % Sodium 135 L (137-145) mmol/L Glucose 198 H (74-99) mg/dL POC Glucose (mg/dL) 179 H (70-110) mg/dL Total Protein 5.7 L (6.3-8.2) g/dL Albumin 2.5 L (3.5-5.0) g/dL Microbiology - Last 24 Hours (Table) 12/19/23 14:45 Gram Stain - Final Foot - Left Wound Culture - Final Strep agalactiae - (group b) 12/17/23 18:00 Blood Culture - Preliminary Blood 12/17/23 18:15 Blood Culture - Preliminary Blood
[2023-12-22 16:15] LABS: Glucose,Whole Blood 249 mg/dL (70-110)
[2023-12-22 20:13] LABS: Glucose,Whole Blood 276 mg/dL (70-110)
[2023-12-23 06:10] LABS: Glucose,Whole Blood 185 mg/dL (70-110)
--- NOTE | 2023-12-23 09:59 | P.PN ---
Subjective Progress Note Date: 12/22/23 Principal diagnosis: Reason for follow-up with sepsis and left diabetic foot infection/osteomyelitis Patient is a 73-year-old male with a past medical history significant for diabetes mellitus hyperlipidemia ND prostate disorder and coronary artery disease patient apparently did have a wound to the left foot for the patient to follow at the wound care center, patient was brought into the ER for mental status changes patient was noticed to be septic from infected wound to the left foot and concern for underlying osteomyelitis. Patient is status post debridement of his left foot wound and deep cultures completed on 12/19/2023 with operative findings suggestive of osteomyelitis.Patient is status post left fifth ray to amputation completed on 12/19/2023 along with deep cultures which are pending. On today's evaluation that is 12/22/2023,the patient denies any fever or any chills, patient is breathing comfortably on room air, the patient denies chest pain shortness of breath and no significant cough, patient denies abdominal pain, no nausea vomiting or diarrhea. Denies pain to the left lower extremity. Patient did have white count of 6.6, creatinine 0.70 Objective - Vital Signs Vital signs: Vital Signs Temp 98.1 F 12/22/23 08:45 Pulse 75 12/22/23 08:45 Resp 17 12/22/23 08:45 BP 153/76 12/22/23 08:45 Pulse Ox 95 12/22/23 08:45 FiO2 Intake & Output 12/21/23 12/22/23 12/22/23 18:59 06:59 18:59 Intake Total 1060 480 Balance 1060 480 Intake: Intake, IV Titration 100 Amount Ampicillin-Sulbactam 3 gm 100 In Sodium Chloride 0.9% 100 ml @ 200 mls/hr IVPB Q6HR [facility] Rx#:[id number] Oral 960 480 Other: Voiding Method Toilet Toilet Toilet # Voids 4 1 - Exam GENERAL DESCRIPTION: An elderly male lying in bed in no distress RESPIRATORY SYSTEM: Unlabored breathing , decreased breath sounds at bases HEART: S1 S2 regular rate and rhythm , ABDOMEN: Soft , no tenderness EXTREMITIES: Left foot dressing has just been changed by the nursing staff mention overall wound base looks clean - Labs CBC & Chem 7: 12/22/23 07:51 12/22/23 07:51 Labs: Abnormal Lab Results - Last 24 Hours (Table) 12/21/23 12/21/23 12/21/23 Range/Units 11:29 16:32 20:12 RBC (4.30-5.90) m/uL Hgb (13.0-17.5) gm/dL Hct (39.0-53.0) % Sodium (137-145) mmol/L Glucose (74-99) mg/dL POC Glucose (mg/dL) 242 H 211 H 251 H (70-110) mg/dL Total Protein (6.3-8.2) g/dL Albumin (3.5-5.0) g/dL 12/22/23 12/22/23 12/22/23 Range/Units 06:37 07:51 07:51 RBC 3.26 L (4.30-5.90) m/uL Hgb 9.4 L (13.0-17.5) gm/dL Hct 27.8 L (39.0-53.0) % Sodium 135 L (137-145) mmol/L Glucose 198 H (74-99) mg/dL POC Glucose (mg/dL) 179 H (70-110) mg/dL Total Protein 5.7 L (6.3-8.2) g/dL Albumin 2.5 L (3.5-5.0) g/dL Microbiology - Last 24 Hours (Table) 12/19/23 14:45 Gram Stain - Final Foot - Left Wound Culture - Final Strep agalactiae - (group b) Assessment and Plan (1) Infected wound Current Visit: Yes Status: Acute Code(s): T14.8XXA - OTHER INJURY OF UNSPECIFIED BODY REGION, INITIAL ENCOUNTER; L08.9 - LOCAL INFECTION OF THE SKIN AND SUBCUTANEOUS TISSUE, UNSP SNOMED Code(s): 66664178 (2) Osteomyelitis Current Visit: Yes Status: Acute Code(s): M86.9 - OSTEOMYELITIS, UNSPECIFIED SNOMED Code(s): 23070085 (3) Sepsis Current Visit: Yes Status: Acute Code(s): A41.9 - SEPSIS, UNSPECIFIED ORGANISM SNOMED Code(s): 47093774 Plan: 1patient presented to the hospital with sepsis/septic shock in this patient who did have a fever tachycardia hypotension source is likely left diabetic foot infection with a foul-smelling drainage abnormal x-ray concerning for underlying osteomyelitis we will need to cover for the polymicrobial iqra associated with a diabetic foot infection 2-patient is status post vascular surgery evaluation and amputation of the left fifth toe with deep cultures pending 3-patient initial cultures came back positive with Streptococcus agalactiae 4patient to continue with Unasyn because of extensive infection will benefit from IV Unasyn on discharge discussed with the nursing staff and patient who agreed with the plan Dictation was produced using [employer] dictation software. please excuse any grammatical, word or spelling errors.
[2023-12-23 11:48] LABS: Glucose,Whole Blood 265 mg/dL (70-110)
--- NOTE | 2023-12-23 12:20 | P.PN ---
Subjective Progress Note Date: 12/23/23 Principal diagnosis: Reason for follow-up with sepsis and left diabetic foot infection/osteomyelitis Patient is a 73-year-old male with a past medical history significant for diabetes mellitus hyperlipidemia MT prostate disorder and coronary artery disease patient apparently did have a wound to the left foot for the patient to follow at the wound care center, patient was brought into the ER for mental status changes patient was noticed to be septic from infected wound to the left foot and concern for underlying osteomyelitis. Patient is status post debridement of his left foot wound and deep cultures completed on 12/19/2023 with operative findings suggestive of osteomyelitis.Patient is status post left fifth ray to amputation completed on 12/19/2023 along with deep cultures which are pending. On today's evaluation that is 12/23/2023,the patient remains to be afebrile, patient is on room air not requiring supplemental oxygen and denies any shortness of breath no chest pain or cough.Patient denies having any nausea or vomiting, no abdominal pain and no diarrhea has been reported, the patient has pain to the left foot fifth amputation site wound. No new labs has been obtained today Objective - Vital Signs Vital signs: Vital Signs Temp 97.7 F 12/23/23 08:00 Pulse 82 12/23/23 08:00 Resp 17 12/23/23 08:00 BP 145/68 12/23/23 08:00 Pulse Ox 95 12/23/23 08:00 FiO2 Intake & Output 12/22/23 12/23/23 12/23/23 18:59 06:59 18:59 Intake Total 1300 10 128 Balance 1300 10 128 Intake: IV 10 10 Invasive Line 6 10 10 Intake, IV Titration 100 Amount Ampicillin-Sulbactam 3 gm 100 In Sodium Chloride 0.9% 100 ml @ 200 mls/hr IVPB Q6HR [facility] Rx#:[id number] Oral 1200 118 Other: Voiding Method Toilet Toilet # Voids 2 1 # Bowel Movements 1 - Exam GENERAL DESCRIPTION: An elderly male lying in bed in no distress RESPIRATORY SYSTEM: Unlabored breathing , decreased breath sounds at bases HEART: S1 S2 regular rate and rhythm , ABDOMEN: Soft , no tenderness EXTREMITIES: Left fifth toe amputation site wound base looks clean however s ignificantly deep no surrounding redness or foul-smelling drainage - Labs CBC & Chem 7: 12/22/23 07:51 12/22/23 07:51 Labs: Abnormal Lab Results - Last 24 Hours (Table) 12/22/23 12/22/23 12/22/23 Range/Units 11:49 16:14 20:12 POC Glucose (mg/dL) 179 H 249 H 276 H (70-110) mg/dL 12/23/23 Range/Units 06:09 POC Glucose (mg/dL) 185 H (70-110) mg/dL Microbiology - Last 24 Hours (Table) 12/17/23 18:00 Blood Culture - Final Blood 12/17/23 18:15 Blood Culture - Final Blood 12/19/23 14:45 Anaerobic Culture - Final Foot - Left Assessment and Plan (1) Infected wound Current Visit: Yes Status: Acute Code(s): T14.8XXA - OTHER INJURY OF UNSPECIFIED BODY REGION, INITIAL ENCOUNTER; L08.9 - LOCAL INFECTION OF THE SKIN AND SUBCUTANEOUS TISSUE, UNSP SNOMED Code(s): 75484740 (2) Osteomyelitis Current Visit: Yes Status: Acute Code(s): M86.9 - OSTEOMYELITIS, UNSPECIFIED SNOMED Code(s): 57527874 (3) Sepsis Current Visit: Yes Status: Acute Code(s): A41.9 - SEPSIS, UNSPECIFIED ORGANISM SNOMED Code(s): 56159466 Plan: 1patient presented to the hospital with sepsis/septic shock in this patient who did have a fever tachycardia hypotension source is likely left diabetic foot infection with a foul-smelling drainage abnormal x-ray concerning for underlying osteomyelitis we will need to cover for the polymicrobial iqra associated with a diabetic foot infection 2-patient is status post vascular surgery evaluation and amputation of the left fifth toe with deep cultures pending 3-patient initial cultures came back positive with Streptococcus agalactiae 4patient did have a extensive infection will order PICC line and continue with Unasyn x 4 weeks on discharge patient benefit from a wound VAC for the local wound care Dictation was produced using [employer] dictation software. please excuse any grammatical, word or spelling errors. Time with Patient: Less than 30
[2023-12-23] MEDS: LIDOCAINE 1% INJ 10MG/ML (20 ML MDV) SQ ONE (12:45)
--- NOTE | 2023-12-23 12:56 | P.PN ---
Subjective Progress Note Date: 12/23/23 This is a 73-year-old patient, with no family doctor. Family went to his house and found him to be altered mentation. Patient had had a bowel movement and was not aware of the same. Patient not sure about fever and chills. Slightly vague give during history taking. Patient is a wound on the left foot present for at least 2 months. Has not followed with a physician. Denies any pain in there. Able to walk around the house. Does live alone. December 19: Patient was agitated last night. Had to be given Haldol. Was kicking and screaming. Had to be in restraints. Doing much better this morning . Restraints taken off. Started on Resporal 1 mg at night. Later today Dr. Camarillo took the patient to the OR. Left fifth toe ray amputation carried out. December 20: Patient slept well last night. Doing well with the current dose of Haldol. This morning communicating well. Tolerated diet. On IV Unasyn. Wound culture growing Streptococcus agalactiae group B. Dressing changes in the foot per vascular. 12/21. Patient seen and examined. WBC 6, hemoglobin 8.7, platelet count 145, sodium 1 3, potassium 4.2, BUN 15, creatinine 0.78. States left foot pain has improved 12/22. Patient seen and examined. Laying comfortably in the bed states pain in left foot has improved. Vital signs stable 12/23. Patient seen and examined. Family wanted patient to be discharged to rehab. Currently case management working on placement to rehab facility. Patient needs Unasyn x 4 weeks on discharge patient benefit from a wound VAC for the local wound care. REVIEW OF SYSTEMS: CONSTITUTIONAL: No fever, no malaise,. CARDIOVASCULAR: No chest pain, no palpitations, no syncope. PULMONARY: No shortness of breath, no cough, GASTROINTESTINAL: No diarrhea, no nausea, no vomiting, no abdominal pain. NEUROLOGICAL: No headaches, no weakness, PHYSICAL EXAMINATION: GENERAL: The patient is alert and oriented x3, not in any acute distress. Well developed, well nourished. HEENT: Pupils are round and equally reacting to light. EOMI. No scleral icterus. No conjunctival pallor. Normocephalic, atraumatic. No pharyngeal erythema. No thyromegaly. CARDIOVASCULAR: S1 and S2 present. No murmurs, rubs, or gallops. PULMONARY: Chest is clear to auscultation, no wheezing or crackles. ABDOMEN: Soft, nontender, nondistended, normoactive bowel sounds. No palpable organomegaly. MUSCULOSKELETAL: Left foot dressing seen EXTREMITIES: No cyanosis, clubbing, or pedal edema. NEUROLOGICAL: Gross neurological examination did not reveal any focal deficits. SKIN: No rashes. Assessment and plan -Acute left foot acute osteomyelitis of both the fifth proximal phalangeal base of the fifth metatarsal head and neck. sepsis Monitor vital signs monitor CBC Monitor CMP Left fifth toe ray amputation by Dr. aCmarillo on December 19 ID recommend Unasyn x 4 weeks on discharge Continue wound care, patient benefit from a wound VAC per ID Vascular and ID following Case management working on placement to rehab facility -Acute delirium Resolved -Lactic acidosis from sepsis resolved -Hyperthyroidism from oral placement Continue Synthroid doses reduced to 150 -Diabetes mellitus type 2 on oral hypoglycemic Diabetic diet. Sliding scale insulin coverage -BPH Flomax -Atrial fibrillation flutter,rate controlled Lopressor 12.5 twice daily. Eliquis Labs and medication were reviewed.. Continue same treatment. Continue with symptomatic treatment. Resume home medication. Monitor labs and vitals. DVT and GI prophylaxis. Further recommendations as per clinical course of the patient Dictation was produced using [employer] dictation software. please excuse any grammatical, word or spelling errors. Objective - Vital Signs Vital signs: Vital Signs Temp 97.7 F 12/23/23 08:00 Pulse 82 12/23/23 08:00 Resp 17 12/23/23 08:00 BP 145/68 12/23/23 08:00 Pulse Ox 95 12/23/23 08:00 FiO2 Intake & Output 12/22/23 12/23/23 12/23/23 18:59 06:59 18:59 Intake Total 1300 10 128 Balance 1300 10 128 Weight 74.843 kg Intake: IV 10 10 Invasive Line 6 10 10 Intake, IV Titration 100 Amount Ampicillin-Sulbactam 3 gm 100 In Sodium Chloride 0.9% 100 ml @ 200 mls/hr IVPB Q6HR [facility] Rx#:[id number] Oral 1200 118 Other: Voiding Method Toilet Toilet # Voids 2 1 # Bowel Movements 1 - Labs CBC & Chem 7: 12/22/23 07:51 12/22/23 07:51 Labs: Abnormal Lab Results - Last 24 Hours (Table) 12/22/23 12/22/23 12/23/23 Range/Units 16:14 20:12 06:09 POC Glucose (mg/dL) 249 H 276 H 185 H (70-110) mg/dL 12/23/23 Range/Units 11:46 POC Glucose (mg/dL) 265 H (70-110) mg/dL Microbiology - Last 24 Hours (Table) 12/17/23 18:00 Blood Culture - Final Blood 12/17/23 18:15 Blood Culture - Final Blood 12/19/23 14:45 Anaerobic Culture - Final Foot - Left
--- NOTE | 2023-12-23 13:06 | P.PN ---
Subjective Progress Note Date: 12/23/23 Principal diagnosis: foot wound, Left 5th toe amputation Doing well this morning. No complaints. States getting PICC line today for antibiotics. Objective - Vital Signs Vital signs: Vital Signs Temp 97.7 F 12/23/23 08:00 Pulse 82 12/23/23 08:00 Resp 17 12/23/23 08:00 BP 145/68 12/23/23 08:00 Pulse Ox 95 12/23/23 08:00 FiO2 Intake & Output 12/22/23 12/23/23 12/23/23 18:59 06:59 18:59 Intake Total 1300 10 128 Balance 1300 10 128 Weight 74.843 kg Intake: IV 10 10 Invasive Line 6 10 10 Intake, IV Titration 100 Amount Ampicillin-Sulbactam 3 gm 100 In Sodium Chloride 0.9% 100 ml @ 200 mls/hr IVPB Q6HR [facility] Rx#:[id number] Oral 1200 118 Other: Voiding Method Toilet Toilet # Voids 2 1 # Bowel Movements 1 - Exam left 5th toe amputation site clean with good granulation tissue. No purulent drainage. - Constitutional General appearance: Present: morbidly obese - EENT Eyes: Present: PERRLA - Labs CBC & Chem 7: 12/22/23 07:51 12/22/23 07:51 Labs: Abnormal Lab Results - Last 24 Hours (Table) 12/22/23 12/22/23 12/23/23 Range/Units 16:14 20:12 06:09 POC Glucose (mg/dL) 249 H 276 H 185 H (70-110) mg/dL 12/23/23 Range/Units 11:46 POC Glucose (mg/dL) 265 H (70-110) mg/dL Microbiology - Last 24 Hours (Table) 12/17/23 18:00 Blood Culture - Final Blood 12/17/23 18:15 Blood Culture - Final Blood 12/19/23 14:45 Anaerobic Culture - Final Foot - Left Assessment and Plan Assessment: Infected left diabetic foot wound status post 5th toe amputation DM Plan: Dressing changes daily PICC line to be placed today. ok for discharge from vascular standpoint.
--- NOTE | 2023-12-23 13:08 | P.PCN ---
Date of Procedure: 12/23/23 Preoperative Diagnosis: Infected left diabetic foot wound Postoperative Diagnosis: same Procedure(s) Performed: Left basilic vein PICC placement under ultrasound and fluoroscopic guidance Anesthesia: local Surgeon: Nino Petersen Estimated Blood Loss (ml): 5 Pathology: none sent Condition: stable Disposition: floor Description of Procedure: After written and informed consent was obtained the patient and all risks, benefits and competitions were described the patient was brought to the [facility] [employer] and laid in a supine position with his left arm outstretched on an armboard. The area of the left arm was prepped and draped in usual sterile fashion. Timeout was performed in normal fashion. Utilizing ultrasound the basilic vein was visualized and shown to be compressible without any visible thrombus. Under ultrasound guidance the basilic vein was then cannulated with a micropuncture needle and wire was placed under direct visualization of fluoroscopy. Introducer sheath was then placed. The catheter was measured and cut to the appropriate length which was 52 cm. The catheter was then guided through the breakaway sheath and the sheath was removed with good positioning was visualized under fluoroscopy. The catheter was pulled and flushed easily. It was then secured in place in normal fashion. Patient tolerated the procedure well was sent back to his room for recovery.
--- NOTE | 2023-12-23 15:48 | IR ---
EXAMINATION TYPE: IR cvc insert >=5 years DATE OF EXAM: 12/23/2023 COMPARISON: NONE HISTORY: Fluoroscopy time. Fluoroscopy was provided to the referring clinician.
[2023-12-23 17:03] LABS: Glucose,Whole Blood 346 mg/dL (70-110)
[2023-12-23] MEDS ORDERED: DOCUSATE 100 MG CAP PO PRN (18:47)
[2023-12-23 20:21] LABS: Glucose,Whole Blood 197 mg/dL (70-110)
[2023-12-23 20:52] LABS: Glucose,Whole Blood 222 mg/dL (70-110)
[2023-12-24 06:45] LABS: Glucose,Whole Blood 164 mg/dL (70-110)
[2023-12-24] MEDS: HALOPERIDOL LACTATE 5 MG/ML 1 ML VIAL IVP STA (08:16)
--- NOTE | 2023-12-24 09:02 | P.PN ---
Subjective Progress Note Date: 12/24/23 Principal diagnosis: Infected wound Patient was seen and examined earlier this morning. He was resting with the blankets over his head. He was somewhat uncooperative with exam. Left foot with dressing with drainage noted. He has been afebrile. Awaiting wound care consultation. PICC line is placed. Apparently patient has been combative and belligerent especially during the nights. Left arm PICC line intact with a dressing over to avoid patient from pulling at it. Objective - Vital Signs Vital signs: Vital Signs Temp 98.1 F 12/24/23 07:50 Pulse 80 12/24/23 07:50 Resp 16 12/24/23 07:50 BP 136/71 12/24/23 07:50 Pulse Ox 97 12/24/23 07:50 FiO2 Intake & Output 12/23/23 12/24/23 12/24/23 18:59 06:59 18:59 Intake Total 138 30 10 Balance 138 30 10 Weight 74.843 kg Intake: IV 20 30 10 Invasive Line 6 20 10 Invasive Line 7 20 10 Oral 118 Other: Voiding Method Toilet Toilet # Voids 1 - Exam General appearance: The patient is alert, oriented, appears in no acute distress. HET: Head is normocephalic and atraumatic. Pupils are equal and reactive. Neck: Supple. Heart: Regular. Lungs: Equal expansion, normal respiratory effort. Abdomen: Soft, nontender, nondistended. Extremities: Left upper extremity PICC line with dressing over it. Left dressing intact with bloody drainage. Dressing changed amputation site bed pink, small amount of bleeding. Surgical incision packed with wet-to-dry dressing, Kerlix and Coban applied Neurological: Alert and oriented. - Labs CBC & Chem 7: 12/22/23 07:51 12/22/23 07:51 Labs: Abnormal Lab Results - Last 24 Hours (Table) 12/23/23 12/23/23 12/23/23 Range/Units 11:46 17:01 20:20 POC Glucose (mg/dL) 265 H 346 H 197 H (70-110) mg/dL 12/23/23 12/24/23 Range/Units 20:51 06:34 POC Glucose (mg/dL) 222 H 164 H (70-110) mg/dL Microbiology - Last 24 Hours (Table) 12/17/23 18:00 Blood Culture - Final Blood 12/17/23 18:15 Blood Culture - Final Blood Assessment and Plan Assessment: 1. Infected Left foot diabetic wound status post fifth toe amputation 2. Hypotension 3. Atrial fibrillation 4. History of coronary artery disease 5. Diabetes mellitus 6. Altered mental status Plan: 1. May resume Eliquis 2. Antibiotics per recommendations from infectious disease 3. Daily dressing change left surgical incision with wet-to-dry dressing, wrap with Kerlix and Coban if needed 4. Postop shoe to left foot when ambulating 5. Consult to physical therapy. Heel walk only 6. Wound care consulted, await further recommendations. Patient will need outpatient follow-up with wound care center Thank you for this consultation, patient is cleared from vascular surgery for discharge. The impression and plan of care has been dictated as directed. Dr. Petersen I performed a history and examination of this patient, discussed the same with the dictator. I agree with the dictator's note ,documented as a scribe. Any additional findings or plans will be noted.
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
[2023-12-24 11:42] LABS: Glucose,Whole Blood 189 mg/dL (70-110)
--- NOTE | 2023-12-24 13:26 | P.PN ---
Subjective Progress Note Date: 12/24/23 Principal diagnosis: Reason for follow-up with sepsis and left diabetic foot infection/osteomyelitis Patient is a 73-year-old male with a past medical history significant for diabetes mellitus hyperlipidemia PR prostate disorder and coronary artery disease patient apparently did have a wound to the left foot for the patient to follow at the wound care center, patient was brought into the ER for mental status changes patient was noticed to be septic from infected wound to the left foot and concern for underlying osteomyelitis. Patient is status post debridement of his left foot wound and deep cultures completed on 12/19/2023 with operative findings suggestive of osteomyelitis.Patient is status post left fifth ray to amputation completed on 12/19/2023 along with deep cultures which are pending. On today's evaluation that is 12/24/2023, the patient continues to be afebrile, the patient is on room air and breathing comfortably, The patient sleepy today had not report any history no vomiting or diarrhea has been reported. No new labs has been repeated today Objective - Vital Signs Vital signs: Vital Signs Temp 98.1 F 12/24/23 07:50 Pulse 80 12/24/23 07:50 Resp 16 12/24/23 07:50 BP 136/71 12/24/23 07:50 Pulse Ox 97 12/24/23 07:50 FiO2 Intake & Output 12/23/23 12/24/23 12/24/23 18:59 06:59 18:59 Intake Total 138 30 20 Balance 138 30 20 Weight 74.843 kg Intake: IV 20 30 20 Invasive Line 6 20 10 Invasive Line 7 20 20 Oral 118 Other: Voiding Method Toilet Toilet Toilet # Voids 1 - Exam GENERAL DESCRIPTION: An elderly male lying in bed in no distress RESPIRATORY SYSTEM: Unlabored breathing , decreased breath sounds at bases HEART: S1 S2 regular rate and rhythm , ABDOMEN: Soft , no tenderness EXTREMITIES: Left fifth toe amputation site wound base looks clean however significantly deep no surrounding redness or foul-smelling drainage - Labs CBC & Chem 7: 12/22/23 07:51 12/22/23 07:51 Labs: Abnormal Lab Results - Last 24 Hours (Table) 12/23/23 12/23/23 12/23/23 Range/Units 17:01 20:20 20:51 POC Glucose (mg/dL) 346 H 197 H 222 H (70-110) mg/dL 12/24/23 12/24/23 Range/Units 06:34 11:40 POC Glucose (mg/dL) 164 H 189 H (70-110) mg/dL Assessment and Plan (1) Infected wound Current Visit: Yes Status: Acute Code(s): T14.8XXA - OTHER INJURY OF UNSPECIFIED BODY REGION, INITIAL ENCOUNTER; L08.9 - LOCAL INFECTION OF THE SKIN AND SUBCUTANEOUS TISSUE, UNSP SNOMED Code(s): 20276021 (2) Osteomyelitis Current Visit: Yes Status: Acute Code(s): M86.9 - OSTEOMYELITIS, UNSPECIFIED SNOMED Code(s): 48830543 (3) Sepsis Current Visit: Yes Status: Acute Code(s): A41.9 - SEPSIS, UNSPECIFIED ORGANISM SNOMED Code(s): 79709110 Plan: 1patient presented to the hospital with sepsis/septic shock in this patient who did have a fever tachycardia hypotension source is likely left diabetic foot infection with a foul-smelling drainage abnormal x-ray concerning for underlying osteomyelitis we will need to cover for the polymicrobial iqra associated with a diabetic foot infection 2-patient is status post vascular surgery evaluation and amputation of the left fifth toe with deep cultures pending 3-patient cultures came back positive with Streptococcus agalactiae 4patient did have a extensive infection, patient has got a PICC line plan is for 4-week course of Unasyn on discharge and close outpatient follow-up local wound care per the wound care team Dictation was produced using [employer] dictation software. please excuse any grammatical, word or spelling errors. Time with Patient: Less than 30
[2023-12-24] MEDS: HEPARIN SODIUM,PORCINE 5,000 UNIT/ML 1 ML VIAL SQ SCH (15:22)
[2023-12-24 16:45] LABS: Glucose,Whole Blood 225 mg/dL (70-110)
[2023-12-24 20:28] LABS: Glucose,Whole Blood 229 mg/dL (70-110)
[2023-12-24] MEDS: APIXABAN 5 MG TAB PO SCH (20:49)
[2023-12-25 06:04] LABS: Glucose,Whole Blood 249 mg/dL (70-110)
--- NOTE | 2023-12-25 09:47 | P.PN ---
Subjective Progress Note Date: 12/24/23 This is a 73-year-old patient, with no family doctor. Family went to his house and found him to be altered mentation. Patient had had a bowel movement and was not aware of the same. Patient not sure about fever and chills. Slightly vague give during history taking. Patient is a wound on the left foot present for at least 2 months. Has not followed with a physician. Denies any pain in there. Able to walk around the house. Does live alone. December 19: Patient was agitated last night. Had to be given Haldol. Was kicking and screaming. Had to be in restraints. Doing much better this mornin g. Restraints taken off. Started on Resporal 1 mg at night. Later today Dr. Camarillo took the patient to the OR. Left fifth toe ray amputation carried out. December 20: Patient slept well last night. Doing well with the current dose of Haldol. This morning communicating well. Tolerated diet. On IV Unasyn. Wound culture growing Streptococcus agalactiae group B. Dressing changes in the foot per vascular. 12/21. Patient seen and examined. WBC 6, hemoglobin 8.7, platelet count 145, sodium 1 3, potassium 4.2, BUN 15, creatinine 0.78. States left foot pain has improved 12/22. Patient seen and examined. Laying comfortably in the bed states pain in left foot has improved. Vital signs stable 12/23. Patient seen and examined. Family wanted patient to be discharged to rehab. Currently case management working on placement to rehab facility. Patient needs Unasyn x 4 weeks on discharge patient benefit from a wound VAC for the local wound care. 12/24/2023 Patient is resting in the bed. Awake and alert. Patient was agitated and pulling out lines this morning. Was given a dose of Haldol 2 mg IV 1. Otherwise patient is being continued on Unasyn for left foot osteomyelitis. Wou nd care is following. Blood sugar is 164 this morning. Other laboratory data reviewed. REVIEW OF SYSTEMS: CONSTITUTIONAL: No fever, no malaise,. CARDIOVASCULAR: No chest pain, no palpitations, no syncope. PULMONARY: No shortness of breath, no cough, GASTROINTESTINAL: No diarrhea, no nausea, no vomiting, no abdominal pain. NEUROLOGICAL: No headaches, no weakness, PHYSICAL EXAMINATION: GENERAL: The patient is alert and oriented x3, not in any acute distress. Well developed, well nourished. HEENT: Pupils are round and equally reacting to light. EOMI. No scleral icterus. No conjunctival pallor. Normocephalic, atraumatic. No pharyngeal erythema. No thyromegaly. CARDIOVASCULAR: S1 and S2 present. No murmurs, rubs, or gallops. PULMONARY: Chest is clear to auscultation, no wheezing or crackles. ABDOMEN: Soft, nontender, nondistended, normoactive bowel sounds. No palpable organomegaly. MUSCULOSKELETAL: Left foot dressing seen EXTREMITIES: No cyanosis, clubbing, or pedal edema. NEUROLOGICAL: Gross neurological examination did not reveal any focal deficits. SKIN: No rashes. Assessment and plan -Acute left foot acute osteomyelitis of both the fifth proximal phalangeal base of the fifth metatarsal head and neck. -sepsis Monitor vital signs monitor CBC Monitor CMP Left fifth toe ray amputation by Dr. Camarillo on December 19 ID recommend Unasyn x 4 weeks on discharge Continue wound care, patient benefit from a wound VAC per ID Vascular and ID following Case management working on placement to rehab facility -Acute delirium Resolved -Lactic acidosis from sepsis resolved -Hyperthyroidism from oral placement Continue Synthroid doses reduced to 150 -Diabetes mellitus type 2 on oral hypoglycemic Diabetic diet. Sliding scale insulin coverage -BPH Flomax -Atrial fibrillation flutter,rate controlled Lopressor 12.5 twice daily. Eliquis Labs and medication were reviewed.. Continue with symptomatic treatment. Resume home medication. Monitor labs and vitals. DVT and GI prophylaxis. Dictation was produced using [employer] dictation software. please excuse any grammatical, word or spelling errors. Objective - Vital Signs Vital signs: Vital Signs Temp 98.1 F 12/24/23 07:50 Pulse 80 12/24/23 07:50 Resp 16 12/24/23 07:50 BP 136/71 12/24/23 07:50 Pulse Ox 97 12/24/23 07:50 FiO2 Intake & Output 12/23/23 12/24/23 12/24/23 18:59 06:59 18:59 Intake Total 138 30 20 Balance 138 30 20 Weight 74.843 kg Intake: IV 20 30 20 Invasive Line 6 20 10 Invasive Line 7 20 20 Oral 118 Other: Voiding Method Toilet Toilet Toilet # Voids 1 - Labs CBC & Chem 7: 12/22/23 07:51 12/22/23 07:51 Labs: Abnormal Lab Results - Last 24 Hours (Table) 12/23/23 12/23/23 12/23/23 Range/Units 11:46 17:01 20:20 POC Glucose (mg/dL) 265 H 346 H 197 H (70-110) mg/dL 12/23/23 12/24/23 Range/Units 20:51 06:34 POC Glucose (mg/dL) 222 H 164 H (70-110) mg/dL
--- NOTE | 2023-12-25 11:00 | P.PN ---
Subjective Progress Note Date: 12/25/23 Principal diagnosis: Infected wound Patient was seen and examined resting with his eyes closed in bed. He was seen by wound care yesterday with recommendation for absorptive silver rope, dry gauze. Change Saturdays. He has been afebrile. Objective - Vital Signs Vital signs: Vital Signs Temp 97.9 F 12/25/23 01:18 Pulse 69 12/25/23 01:18 Resp 16 12/25/23 01:18 BP 118/59 12/25/23 01:18 Pulse Ox 96 12/25/23 01:18 FiO2 Intake & Output 12/24/23 12/25/23 12/25/23 18:59 06:59 18:59 Intake Total 496 10 Balance 496 10 Intake: IV 20 10 Invasive Line 7 20 10 Oral 476 Other: Voiding Method Toilet Toilet # Voids 1 - Exam General appearance: The patient is alert, oriented, appears in no acute distress. HET: Head is normocephalic and atraumatic. Pupils are equal and reactive. Neck: Supple. Heart: Regular. Lungs: Equal expansion, normal respiratory effort. Abdomen: Soft, nontender, nondistended. Extremities: Left upper extremity PICC line with dressing over it. Left dress ing intact with bloody drainage. Dressing changed amputation site bed pink, small amount of bleeding. Surgical incision packed with wet-to-dry dressing, Kerlix and Coban applied Neurological: Alert and oriented. - Labs CBC & Chem 7: 12/22/23 07:51 12/22/23 07:51 Labs: Abnormal Lab Results - Last 24 Hours (Table) 12/24/23 12/24/23 12/24/23 Range/Units 11:40 16:43 20:27 POC Glucose (mg/dL) 189 H 225 H 229 H (70-110) mg/dL 12/25/23 Range/Units 06:01 POC Glucose (mg/dL) 249 H (70-110) mg/dL Assessment and Plan Assessment: 1. Infected Left foot diabetic wound status post fifth toe amputation 2. Hypotension 3. Atrial fibrillation 4. History of coronary artery disease 5. Diabetes mellitus 6. Altered mental status Plan: 1. May resume Eliquis 2. Antibiotics per recommendations from infectious disease 3. Local wound care per wound care recommendations 4. Postop shoe to left foot when ambulating 5. Consult to physical therapy. Heel walk only 6. Wound care on consultation. Patient will need outpatient follow-up with wound care center Thank you for this consultation, patient is cleared from vascular surgery for discharge. We will sign off at this time. The impression and plan of care has been dictated as directed. Dr. Camarillo I performed a history and examination of this patient, discussed the same with the dictator. I agree with the dictator's note ,documented as a scribe. Any additional findings or plans will be noted.
[2023-12-25 11:27] LABS: Basophils # (A) 0.1 k/uL (0-0.2); Basophils % (A) 1 %; Eosinophils # (A) 0.8 k/uL (0-0.7); Eosinophils % (A) 9 %; HCT 29.8 % (39.0-53.0); HGB 9.6 gm/dL (13.0-17.5); Hypochromasia Slight; Lymphocytes # (A) 1.9 k/uL (1.0-4.8); Lymphocytes % (A) 22 %; MCHC 32.3 g/dL (31.0-37.0); MCV 86.5 fL (80.0-100.0); Mean Platelet Volume 7.6; Monocytes # (A) 0.4 k/uL (0-1.0); Monocytes % (A) 5 %; Neutrophils # (A) 5.4 k/uL (1.3-7.7); Neutrophils % (A) 61 %; Platelet Count 202 k/uL (150-450); RBC 3.45 m/uL (4.30-5.90); RDW 15.9 % (11.5-15.5); WBC 8.8 k/uL (3.8-10.6)
[2023-12-25 11:40] LABS: African American GFR (CKD) >90 (>60 ml/min/1.73 sqM); Anion Gap 4 mmol/L; Blood Urea Nitrogen 20 mg/dL (9-20); Calcium 8.9 mg/dL (8.4-10.2); Carbon Dioxide 28 mmol/L (22-30); Chloride 106 mmol/L (98-107); Glucose 119 mg/dL (74-99); Non-African American GFR(CKD) >90 (>60 ml/min/1.73 sqM); Potassium 4.4 mmol/L (3.5-5.1); Sodium 138 mmol/L (137-145)
--- NOTE | 2023-12-25 11:44 | P.PN ---
Subjective Progress Note Date: 12/25/23 Principal diagnosis: Reason for follow-up with sepsis and left diabetic foot infection/osteomyelitis Patient is a 73-year-old male with a past medical history significant for diabetes mellitus hyperlipidemia [place] prostate disorder and coronary artery disease patient apparently did have a wound to the left foot for the patient to follow at the wound care center, patient was brought into the ER for mental status changes patient was noticed to be septic from infected wound to the left foot and concern for underlying osteomyelitis. Patient is status post debridement of his left foot wound and deep cultures completed on 12/19/2023 with operative findings suggestive of osteomyelitis.Patient is status post left fifth ray to amputation completed on 12/19/2023 along with deep cultures which are pending. On today's evaluation that is 12/25/2023, Patient is afebrile patient is currently on room air and denies having any shortness of breath, the patient denies any chest pain or cough, the patient denies any nausea vomiting did not have any abdominal pain and no diarrhea, denies pain to the left foot area. Patient white count of 8.8, creatinine 0.74 Objective - Vital Signs Vital signs: Vital Signs Temp 98.2 F 12/25/23 09:30 Pulse 76 12/25/23 09:30 Resp 16 12/25/23 09:30 BP 119/65 12/25/23 09:30 Pulse Ox 98 12/25/23 09:30 FiO2 Intake & Output 12/24/23 12/25/23 12/25/23 18:59 06:59 18:59 Intake Total 496 10 368 Balance 496 10 368 Intake: IV 20 10 10 Invasive Line 7 20 10 10 Oral 476 358 Other: Voiding Method Toilet Toilet Toilet # Voids 1 - Exam GENERAL DESCRIPTION: An elderly male lying in bed in no distress RESPIRATORY SYSTEM: Unlabored breathing , decreased breath sounds at bases HEART: S1 S2 regular rate and rhythm , ABDOMEN: Soft , no tenderness EXTREMITIES: Left fifth toe amputation site wound base looks clean however significantly deep no surrounding redness or foul-smelling drainage - Labs CBC & Chem 7: 12/25/23 10:54 12/25/23 10:54 Labs: Abnormal Lab Results - Last 24 Hours (Table) 12/24/23 12/24/23 12/25/23 Range/Units 16:43 20:27 06:01 RBC (4.30-5.90) m/uL Hgb (13.0-17.5) gm/dL Hct (39.0-53.0) % RDW (11.5-15.5) % Eosinophils # (0-0.7) k/uL Glucose (74-99) mg/dL POC Glucose (mg/dL) 225 H 229 H 249 H (70-110) mg/dL 12/25/23 12/25/23 Range/Units 10:54 10:54 RBC 3.45 L (4.30-5.90) m/uL Hgb 9.6 L (13.0-17.5) gm/dL Hct 29.8 L (39.0-53.0) % RDW 15.9 H (11.5-15.5) % Eosinophils # 0.8 H (0-0.7) k/uL Glucose 119 H (74-99) mg/dL POC Glucose (mg/dL) (70-110) mg/dL Assessment and Plan (1) Infected wound Current Visit: Yes Status: Acute Code(s): T14.8XXA - OTHER INJURY OF UNSPECIFIED BODY REGION, INITIAL ENCOUNTER; L08.9 - LOCAL INFECTION OF THE SKIN AND SUBCUTANEOUS TISSUE, UNSP SNOMED Code(s): 48141128 (2) Osteomyelitis Current Visit: Yes Status: Acute Code(s): M86.9 - OSTEOMYELITIS, UNSPECIFIED SNOMED Code(s): 09759286 (3) Sepsis Current Visit: Yes Status: Acute Code(s): A41.9 - SEPSIS, UNSPECIFIED ORGANISM SNOMED Code(s): 56297502 Plan: 1patient presented to the hospital with sepsis/septic shock in this patient who did have a fever tachycardia hypotension source is likely left diabetic foot infection with a foul-smelling drainage abnormal x-ray concerning for underlying osteomyelitis we will need to cover for the polymicrobial iqra associated with a diabetic foot infection 2-patient is status post vascular surgery evaluation and amputation of the left fifth toe with deep cultures pending 3-patient cultures came back positive with Streptococcus agalactiae 4patient did have a extensive infection, patient has got a PICC line 5-plan is for 4-week course of Unasyn on discharge with weekly monitoring of CRP and sed rate and close outpatient follow-up Dictation was produced using [employer] software. please excuse any grammatical, word or spelling errors. Time with Patient: Less than 30
[2023-12-25 12:13] LABS: Glucose,Whole Blood 153 mg/dL (70-110)
[2023-12-25 16:21] LABS: Glucose,Whole Blood 186 mg/dL (70-110)
[2023-12-25] MEDS: LIDOCAINE 1% INJ 10MG/ML (20 ML MDV) SQ ONE (17:16)
--- NOTE | 2023-12-25 17:31 | P.OP ---
Date of Procedure: 12/25/23 Description of Procedure: Preoperative Diagnosis: Need for long-term IV antibiotic access. Postoperative Diagnosis: Same. Procedure(s) Performed: Ultrasound-guided cannulation left basilic vein. Insertion of peripherally inserted central catheter under fluoroscopic guidance. Anesthesia: local 1% lidocaine ramya Surgeon: Rabia Estimated Blood Loss (ml): 5 IV fluids (ml): 0 Urine output (ml): 0 Pathology: none sent Condition: stable Disposition: no change Indications for Procedure: Patient requires long-term IV antibiotics as an outpatient patient is offered a PICC line to allow for intravenous administration of antibiotics. He previously had a PICC line which was inadvertently pulled out by the patient. He is continuing need for this and awaiting discharge planning. Description of Procedure: Patient was brought to the special procedure suite. The left upper extremity sterilely prepped and draped in usual manner. Ultrasound was utilized to identify the basilic vein which was normally compressible free of visible thrombus. Permenant image was stored. 1% Xylocaine was utilized for local anesthesia tissues overlying the vein. Through this anesthetized area and with the aid of ultrasound a micropuncture needle was utilized to cannulate the vein. Once cannulated, Softip guidewire was advanced into the vein. The needle was withdrawn and a micropuncture sheath and dilator advanced over the guidewire. The guidewire was withdrawn and exchanged for the PICC guidewire and measured 42 cm to the cavoatrial junction. The catheter was cut to size and advanced into the cavoatrial junction without resistance. The sheath was peeled away. Blood was easily withdrawn through the catheter and the catheter was then flushed with heparinized saline solution and secured to the skin. Patient tolerated procedure well and was returned to their room in satisfactory and stable condition.
--- NOTE | 2023-12-25 18:51 | IR ---
PICC Insertion: EXAMINATION TYPE: IR cvc insert >=5 years Intraoperative/procedural fluoroscopic services were provid ed. CLINICAL INDICATION:Male, 73 years old with history of Abx, 0.6m 1.1475DAP, 4F 42CM LT BASILIC PICC; , [facility] Total fluoroscopy time is 0.6 min. DAP: 100.4 uGym2 Please see the operative/procedural note for further details.
[2023-12-25 20:16] LABS: Glucose,Whole Blood 172 mg/dL (70-110)
[2023-12-25] MEDS: QUEtiapine 25 MG TAB PO SCH (20:30)
[2023-12-26 06:34] LABS: Glucose,Whole Blood 192 mg/dL (70-110)
[2023-12-26 11:36] LABS: Glucose,Whole Blood 155 mg/dL (70-110)
--- NOTE | 2023-12-26 15:41 | P.PN ---
Subjective Progress Note Date: 12/26/23 Principal diagnosis: Reason for follow-up with sepsis and left diabetic foot infection/osteomyelitis Patient is a 73-year-old male with a past medical history significant for diabetes mellitus hyperlipidemia [place] prostate disorder and coronary artery disease patient apparently did have a wound to the left foot for the patient to follow at the wound care center, patient was brought into the ER for mental status changes patient was noticed to be septic from infected wound to the left foot and concern for underlying osteomyelitis. Patient is status post debridement of his left foot wound and deep cultures completed on 12/19/2023 with operative findings suggestive of osteomyelitis.Patient is status post left fifth ray to amputation completed on 12/19/2023 along with deep cultures which are pending. On today's evaluation that is 12/26/2023,the patient denies any fever or any chills, patient is breathing comfortably on room air, the patient denies chest pain shortness of breath and no significant cough, patient denies abdominal pain, no nausea vomiting or diarrhea. Patient did pull out his PICC line yesterday and has to be reinserted denies pain to the left foot area. No new labs has been obtained today Objective - Vital Signs Vital signs: Vital Signs Temp 97.8 F 12/26/23 09:35 Pulse 78 12/26/23 09:35 Resp 18 12/26/23 09:35 BP 134/71 12/26/23 09:35 Pulse Ox 98 12/26/23 09:35 FiO2 Intake & Output 12/25/23 12/26/23 12/26/23 18:59 06:59 18:59 Intake Total 608 180 Balance 608 180 Intake: IV 10 Invasive Line 7 10 Oral 598 180 Other: Voiding Method Toilet Toilet Toilet - Exam GENERAL DESCRIPTION: An elderly male lying in bed in no distress RESPIRATORY SYSTEM: Unlabored breathing , decreased breath sounds at bases HEART: S1 S2 regular rate and rhythm , ABDOMEN: Soft , no tenderness EXTREMITIES: Left fifth toe amputation site wound base looks clean however significantly deep no surrounding redness or foul-smelling drainage - Labs CBC & Chem 7: 12/25/23 10:54 12/25/23 10:54 Labs: Abnormal Lab Results - Last 24 Hours (Table) 12/25/23 12/25/23 12/25/23 Range/Units 12:11 16:19 20:14 POC Glucose (mg/dL) 153 H 186 H 172 H (70-110) mg/dL 12/26/23 12/26/23 Range/Units 06:33 11:34 POC Glucose (mg/dL) 192 H 155 H (70-110) mg/dL Assessment and Plan (1) Infected wound Current Visit: Yes Status: Acute Code(s): T14.8XXA - OTHER INJURY OF UNSPECIFIED BODY REGION, INITIAL ENCOUNTER; L08.9 - LOCAL INFECTION OF THE SKIN AND SUBCUTANEOUS TISSUE, UNSP SNOMED Code(s): 70768392 (2) Osteomyelitis Current Visit: Yes Status: Acute Code(s): M86.9 - OSTEOMYELITIS, UNSPECIFIED SNOMED Code(s): 12909544 (3) Sepsis Current Visit: Yes Status: Acute Code(s): A41.9 - SEPSIS, UNSPECIFIED ORGANISM SNOMED Code(s): 97570498 Plan: 1patient presented to the hospital with sepsis/septic shock in this patient who did have a fever tachycardia hypotension source is likely left diabetic foot infection with a foul-smelling drainage abnormal x-ray concerning for underlying osteomyelitis we will need to cover for the polymicrobial iqra associated with a diabetic foot infection 2-patient is status post vascular surgery evaluation and amputation of the left fifth toe with deep cultures pending 3-patient cultures came back positive with Streptococcus agalactiae 4patient did have a extensive infection, patient did remove his PICC line yesterday and has to be reinserted patient was not very clear of the reason why 5-plan is for 4-week course of Unasyn on discharge and close outpatient follow- up Dictation was produced using [employer] dictation software. please excuse any grammatical, word or spelling errors. Time with Patient: Less than 30
[2023-12-26 16:30] LABS: Glucose,Whole Blood 226 mg/dL (70-110)
[2023-12-26 19:56] LABS: Glucose,Whole Blood 137 mg/dL (70-110)
[2023-12-27 06:22] LABS: Glucose,Whole Blood 147 mg/dL (70-110)
[2023-12-27] MEDS ORDERED: LIDOCAINE 1% INJ 10MG/ML (20 ML MDV) ONE (09:12)
--- NOTE | 2023-12-27 10:09 | P.PN ---
Subjective Progress Note Date: 12/25/23 This is a 73-year-old patient, with no family doctor. Family went to his house and found him to be altered mentation. Patient had had a bowel movement and was not aware of the same. Patient not sure about fever and chills. Slightly vague give during history taking. Patient is a wound on the left foot present for at least 2 months. Has not followed with a physician. Denies any pain in there. Able to walk around the house. Does live alone. December 19: Patient was agitated last night. Had to be given Haldol. Was kicking and screaming. Had to be in restraints. Doing much better this mornin g. Restraints taken off. Started on Resporal 1 mg at night. Later today Dr. Camarillo took the patient to the OR. Left fifth toe ray amputation carried out. December 20: Patient slept well last night. Doing well with the current dose of Haldol. This morning communicating well. Tolerated diet. On IV Unasyn. Wound culture growing Streptococcus agalactiae group B. Dressing changes in the foot per vascular. 12/21. Patient seen and examined. WBC 6, hemoglobin 8.7, platelet count 145, sodium 1 3, potassium 4.2, BUN 15, creatinine 0.78. States left foot pain has improved 12/22. Patient seen and examined. Laying comfortably in the bed states pain in left foot has improved. Vital signs stable 12/23. Patient seen and examined. Family wanted patient to be discharged to rehab. Currently case management working on placement to rehab facility. Patient needs Unasyn x 4 weeks on discharge patient benefit from a wound VAC for the local wound care. 12/24/2023 Patient is resting in the bed. Awake and alert. Patient was agitated and pulling out lines this morning. Was given a dose of Haldol 2 mg IV 1. Otherwise patient is being continued on Unasyn for left foot osteomyelitis. Wou nd care is following. Blood sugar is 164 this morning. Other laboratory data reviewed. 12/25/2023 Patient is sitting in the chair. Awake alert and oriented today. No agitation overnight. Otherwise patient is getting IV antibiotics of Unasyn. Also on anticoagulation with a decrease. Patient has been afebrile. Plan for PICC line tomorrow. REVIEW OF SYSTEMS: CONSTITUTIONAL: No fever, no malaise,. CARDIOVASCULAR: No chest pain, no palpitations, no syncope. PULMONARY: No shortness of breath, no cough, GASTROINTESTINAL: No diarrhea, no nausea, no vomiting, no abdominal pain. NEUROLOGICAL: No headaches, no weakness, PHYSICAL EXAMINATION: GENERAL: The patient is alert and oriented x3, not in any acute distress. Well developed, well nourished. HEENT: Pupils are round and equally reacting to light. EOMI. No scleral icterus. No conjunctival pallor. Normocephalic, atraumatic. No pharyngeal erythema. No thyromegaly. CARDIOVASCULAR: S1 and S2 present. No murmurs, rubs, or gallops. PULMONARY: Chest is clear to auscultation, no wheezing or crackles. ABDOMEN: Soft, nontender, nondistended, normoactive bowel sounds. No palpable organomegaly. MUSCULOSKELETAL: Left foot dressing seen EXTREMITIES: No cyanosis, clubbing, or pedal edema. NEUROLOGICAL: Gross neurological examination did not reveal any focal deficits. SKIN: No rashes. Assessment and plan -Acute left foot acute osteomyelitis of both the fifth proximal phalangeal base of the fifth metatarsal head and neck. -sepsis Monitor vital signs monitor CBC Monitor CMP Left fifth toe ray amputation by Dr. Camarillo on December 19 ID recommend Unasyn x 4 weeks on discharge Continue wound care, patient benefit from a wound VAC per ID Vascular and ID following Case management working on placement to rehab facility -Acute delirium Resolved -Lactic acidosis from sepsis resolved -Hyperthyroidism from oral placement Continue Synthroid doses reduced to 150 -Diabetes mellitus type 2 on oral hypoglycemic Diabetic diet. Sliding scale insulin coverage -BPH Flomax -Atrial fibrillation flutter,rate controlled Lopressor 12.5 twice daily. Eliquis Labs and medication were reviewed.. Continue with symptomatic treatment. Resume home medication. Monitor labs and vitals. DVT and GI prophylaxis. Dictation was produced using [email or web address] dictation software. please excuse any grammatical, word or spelling errors. Objective - Vital Signs Vital signs: Vital Signs Temp 97.6 F 12/25/23 16:35 Pulse 72 12/25/23 16:35 Resp 16 12/25/23 16:35 BP 138/66 12/25/23 16:35 Pulse Ox 100 12/25/23 16:35 FiO2 Intake & Output 12/25/23 12/25/2324 06:59 18:59 06:59 Intake Total 10 608 Balance 10 608 Intake: IV 10 10 Invasive Line 7 10 10 Oral 598 Other: Voiding Method Toilet Toilet - Labs CBC & Chem 7: 12/25/23 10:54 12/25/23 10:54 Labs: Abnormal Lab Results - Last 24 Hours (Table) 12/24/23 12/25/23 12/25/23 Range/Units 20:27 06:01 10:54 RBC 3.45 L (4.30-5.90) m/uL Hgb 9.6 L (13.0-17.5) gm/dL Hct 29.8 L (39.0-53.0) % RDW 15.9 H (11.5-15.5) % Eosinophils # 0.8 H (0-0.7) k/uL Glucose (74-99) mg/dL POC Glucose (mg/dL) 229 H 249 H (70-110) mg/dL 12/25/23 12/25/23 12/25/23 Range/Units 10:54 12:11 16:19 RBC (4.30-5.90) m/uL Hgb (13.0-17.5) gm/dL Hct (39.0-53.0) % RDW (11.5-15.5) % Eosinophils # (0-0.7) k/uL Glucose 119 H (74-99) mg/dL POC Glucose (mg/dL) 153 H 186 H (70-110) mg/dL
--- NOTE | 2023-12-27 10:10 | P.PN ---
Subjective Progress Note Date: 12/26/23 This is a 73-year-old patient, with no family doctor. Family went to his house and found him to be altered mentation. Patient had had a bowel movement and was not aware of the same. Patient not sure about fever and chills. Slightly vague give during history taking. Patient is a wound on the left foot present for at least 2 months. Has not followed with a physician. Denies any pain in there. Able to walk around the house. Does live alone. December 19: Patient was agitated last night. Had to be given Haldol. Was kicking and screaming. Had to be in restraints. Doing much better this mornin g. Restraints taken off. Started on Resporal 1 mg at night. Later today Dr. Camarillo took the patient to the OR. Left fifth toe ray amputation carried out. December 20: Patient slept well last night. Doing well with the current dose of Haldol. This morning communicating well. Tolerated diet. On IV Unasyn. Wound culture growing Streptococcus agalactiae group B. Dressing changes in the foot per vascular. 12/21. Patient seen and examined. WBC 6, hemoglobin 8.7, platelet count 145, sodium 1 3, potassium 4.2, BUN 15, creatinine 0.78. States left foot pain has improved 12/22. Patient seen and examined. Laying comfortably in the bed states pain in left foot has improved. Vital signs stable 12/23. Patient seen and examined. Family wanted patient to be discharged to rehab. Currently case management working on placement to rehab facility. Patient needs Unasyn x 4 weeks on discharge patient benefit from a wound VAC for the local wound care. 12/24/2023 Patient is resting in the bed. Awake and alert. Patient was agitated and pulling out lines this morning. Was given a dose of Haldol 2 mg IV 1. Otherwise patient is being continued on Unasyn for left foot osteomyelitis. Wou nd care is following. Blood sugar is 164 this morning. Other laboratory data reviewed. 12/25/2023 Patient is sitting in the chair. Awake alert and oriented today. No agitation overnight. Otherwise patient is getting IV antibiotics of Unasyn. Also on anticoagulation with a decrease. Patient has been afebrile. Plan for PICC line tomorrow. 12/26/2023 Patient is sitting in the chair. Awake alert and oriented. No fever no chills. No cough or sputum production. Patient is getting IV antibiotics, Unasyn. PICC line was placed left upper extremity. Awaiting authorization for placement and IV antibiotics. ID and vascular surgery is on board. REVIEW OF SYSTEMS: CONSTITUTIONAL: No fever, no malaise,. CARDIOVASCULAR: No chest pain, no palpitations, no syncope. PULMONARY: No shortness of breath, no cough, GASTROINTESTINAL: No diarrhea, no nausea, no vomiting, no abdominal pain. NEUROLOGICAL: No headaches, no weakness, PHYSICAL EXAMINATION: GENERAL: The patient is alert and oriented x3, not in any acute distress. Well developed, well nourished. HEENT: Pupils are round and equally reacting to light. EOMI. No scleral icterus. No conjunctival pallor. Normocephalic, atraumatic. No pharyngeal erythema. No thyromegaly. CARDIOVASCULAR: S1 and S2 present. No murmurs, rubs, or gallops. PULMONARY: Chest is clear to auscultation, no wheezing or crackles. ABDOMEN: Soft, nontender, nondistended, normoactive bowel sounds. No palpable organomegaly. MUSCULOSKELETAL: Left foot dressing seen EXTREMITIES: No cyanosis, clubbing, or pedal edema. NEUROLOGICAL: Gross neurological examination did not reveal any focal deficits. SKIN: No rashes. Assessment and plan -Acute left foot acute osteomyelitis of both the fifth proximal phalangeal base of the fifth metatarsal head and neck. -sepsis Monitor vital signs monitor CBC Monitor CMP Left fifth toe ray amputation by Dr. Camarillo on December 19 ID recommend Unasyn x 4 weeks on discharge Continue wound care, patient benefit from a wound VAC per ID Vascular and ID following Case management working on placement to rehab facility -Acute delirium Resolved -Lactic acidosis from sepsis resolved -Hyperthyroidism from oral placement Continue Synthroid doses reduced to 150 -Diabetes mellitus type 2 on oral hypoglycemic Diabetic diet. Sliding scale insulin coverage -BPH Flomax -Atrial fibrillation flutter,rate controlled Lopressor 12.5 twice daily. Eliquis Labs and medication were reviewed.. Continue with symptomatic treatment. Resume home medication. Monitor labs and vitals. DVT and GI prophylaxis. Dictation was produced using [employer] dictation software. please excuse any g rammatical, word or spelling errors. Objective - Vital Signs Vital signs: Vital Signs Temp 97.8 F 12/26/23 09:35 Pulse 63 12/26/23 13:56 Resp 16 12/26/23 13:56 BP 117/64 12/26/23 13:56 Pulse Ox 100 12/26/23 13:56 FiO2 Intake & Output 12/26/23 12/26/23 12/27/23 06:59 18:59 06:59 Intake Total 180 1300 Balance 180 1300 Weight 74.843 kg Intake: Oral 180 1300 Other: Voiding Method Toilet Toilet # Voids 2 - Labs CBC & Chem 7: 12/25/23 10:54 12/25/23 10:54 Labs: Abnormal Lab Results - Last 24 Hours (Table) 12/25/23 12/26/23 12/26/23 Range/Units 20:14 06:33 11:34 POC Glucose (mg/dL) 172 H 192 H 155 H (70-110) mg/dL 12/26/23 Range/Units 16:29 POC Glucose (mg/dL) 226 H (70-110) mg/dL
[2023-12-27 11:28] LABS: Glucose,Whole Blood 214 mg/dL (70-110)
--- NOTE | 2023-12-27 12:40 | P.PN ---
Subjective Progress Note Date: 12/27/23 Principal diagnosis: Reason for follow-up with sepsis and left diabetic foot infection/osteomyelitis Patient is a 73-year-old male with a past medical history significant for diabetes mellitus hyperlipidemia [place] prostate disorder and coronary artery disease patient apparently did have a wound to the left foot for the patient to follow at the wound care center, patient was brought into the ER for mental status changes patient was noticed to be septic from infected wound to the left foot and concern for underlying osteomyelitis. Patient is status post debridement of his left foot wound and deep cultures completed on 12/19/2023 with operative findings suggestive of osteomyelitis.Patient is status post left fifth ray to amputation completed on 12/19/2023 along with deep cultures which are pending. On today's evaluation that is 12/27/2023,the patient remains to be afebrile, patient is on room air not requiring 9supplemental oxygen and denies any shortness of breath no chest pain or cough.Patient denies having any nausea or vomiting, no abdominal pain and no diarrhea has been reported, patient denies pain to the left foot unfortunately the patient pulled out his second PICC line last night when asked specifically patient has no recollection of why he did it. No new labs obtained today Objective - Vital Signs Vital signs: Vital Signs Temp 98.5 F 12/27/23 08:00 Pulse 77 12/27/23 08:00 Resp 18 12/27/23 08:00 BP 129/65 12/27/23 08:00 Pulse Ox 98 12/27/23 08:00 FiO2 Intake & Output 12/26/23 12/27/23 12/27/23 18:59 06:59 18:59 Intake Total 1300 540 540 Balance 1300 540 540 Weight 74.843 kg Intake: Oral 1300 540 540 Other: Voiding Method Toilet Toilet Toilet Incontinent # Voids 2 2 1 - Exam GENERAL DESCRIPTION: An elderly male lying in bed in no distress RESPIRATORY SYSTEM: Unlabored breathing , decreased breath sounds at bases HEART: S1 S2 regular rate and rhythm , ABDOMEN: Soft , no tenderness EXTREMITIES: Left fifth toe amputation site wound base looks clean however significantly deep no surrounding redness or foul-smelling drainage - Labs CBC & Chem 7: 12/25/23 10:54 12/25/23 10:54 Labs: Abnormal Lab Results - Last 24 Hours (Table) 12/26/23 12/26/23 12/26/23 Range/Units 11:34 16:29 19:54 POC Glucose (mg/dL) 155 H 226 H 137 H (70-110) mg/dL 12/27/23 Range/Units 06:21 POC Glucose (mg/dL) 147 H (70-110) mg/dL Assessment and Plan (1) Infected wound Current Visit: Yes Status: Acute Code(s): T14.8XXA - OTHER INJURY OF UNSPECIFIED BODY REGION, INITIAL ENCOUNTER; L08.9 - LOCAL INFECTION OF THE SKIN AND SUBCUTANEOUS TISSUE, UNSP SNOMED Code(s): 82695933 (2) Osteomyelitis Current Visit: Yes Status: Acute Code(s): M86.9 - OSTEOMYELITIS, UNSPECIFIED SNOMED Code(s): 03271207 (3) Sepsis Current Visit: Yes Status: Acute Code(s): A41.9 - SEPSIS, UNSPECIFIED ORGANISM SNOMED Code(s): 74206919 Plan: 1patient presented to the hospital with sepsis/septic shock in this patient who did have a fever tachycardia hypotension source is likely left diabetic foot infection with a foul-smelling drainage abnormal x-ray concerning for underlying osteomyelitis we will need to cover for the polymicrobial iqra associated with a diabetic foot infection 2-patient is status post vascular surgery evaluation and amputation of the left fifth toe with deep cultures pending 3-patient cultures came back positive with Streptococcus agalactiae 4patient did have a extensive infection unfortunately the patient gave verbal about his PICC line vascular surgery not recommending any further PICC line placement at this point and clinically think he is not a good candidate either we will consider oral Augmentin 875 twice daily x 2-4 weeks and close outpatient follow-up Dictation was produced using [email or web address] software. please excuse any grammatical, word or spelling errors. Time with Patient: Less than 30
[2023-12-27 12:46] LABS: Basophils # (A) 0.1 k/uL (0-0.2); Basophils % (A) 1 %; Eosinophils # (A) 0.4 k/uL (0-0.7); Eosinophils % (A) 8 %; HCT 30.1 % (39.0-53.0); HGB 9.8 gm/dL (13.0-17.5); Hypochromasia Slight; Lymphocytes # (A) 1.3 k/uL (1.0-4.8); Lymphocytes % (A) 21 %; MCH 28.7 pg (25.0-35.0); MCHC 32.7 g/dL (31.0-37.0); MCV 87.9 fL (80.0-100.0); Mean Platelet Volume 7.1; Monocytes # (A) 0.3 k/uL (0-1.0); Monocytes % (A) 5 %; Neutrophils # (A) 3.7 k/uL (1.3-7.7); Neutrophils % (A) 63 %; Platelet Count 155 k/uL (150-450); RBC 3.42 m/uL (4.30-5.90); RDW 15.8 % (11.5-15.5); WBC 5.9 k/uL (3.8-10.6)
[2023-12-27 12:58] LABS: African American GFR (CKD) >90 (>60 ml/min/1.73 sqM); Anion Gap 5 mmol/L; Blood Urea Nitrogen 19 mg/dL (9-20); Calcium 8.9 mg/dL (8.4-10.2); Carbon Dioxide 26 mmol/L (22-30); Chloride 106 mmol/L (98-107); Glucose 186 mg/dL (74-99); Non-African American GFR(CKD) 89 (>60 ml/min/1.73 sqM); Potassium 4.4 mmol/L (3.5-5.1); Sodium 137 mmol/L (137-145)
[2023-12-27 16:46] LABS: Glucose,Whole Blood 178 mg/dL (70-110)
[2023-12-27 20:42] LABS: Glucose,Whole Blood 152 mg/dL (70-110)
[2023-12-28 06:06] LABS: Glucose,Whole Blood 163 mg/dL (70-110)
[2023-12-28 08:31] VITALS: BP 128/70; PULSE 77; RESP 17; TEMP 98.1
--- NOTE | 2023-12-28 11:50 | P.PN ---
Subjective Progress Note Date: 12/28/23 Principal diagnosis: Reason for follow-up with sepsis and left diabetic foot infection/osteomyelitis Patient is a 73-year-old male with a past medical history significant for diabetes mellitus hyperlipidemia [place] prostate disorder and coronary artery disease patient apparently did have a wound to the left foot for the patient to follow at the wound care center, patient was brought into the ER for mental status changes patient was noticed to be septic from infected wound to the left foot and concern for underlying osteomyelitis. Patient is status post debridement of his left foot wound and deep cultures completed on 12/19/2023 with operative findings suggestive of osteomyelitis.Patient is status post left fifth ray to amputation completed on 12/19/2023 along with deep cultures which are pending. On today's evaluation that is 12/28/2023, the patient continues to be afebrile, the patient is on room air and breathing comfortably, the Pt denies having any chest pain or cough, the patient denies having any abdominal pain no vomiting or any diarrhea has been reported by the nursing staff, denies pain to the left foot wound area. No new labs has been obtained today Objective - Vital Signs Vital signs: Vital Signs Temp 98.1 F 12/28/23 06:58 Pulse 77 12/28/23 06:58 Resp 17 12/28/23 06:58 BP 128/70 12/28/23 06:58 Pulse Ox 99 12/28/23 06:58 FiO2 Intake & Output 12/27/23 12/28/23 12/28/23 18:59 06:59 18:59 Intake Total 1440 Output Total 400 Balance 1440 -400 Intake: Oral 1440 Output: Urine 400 Other: Voiding Method Toilet Toilet # Voids 2 2 # Bowel Movements 1 - Exam GENERAL DESCRIPTION: An elderly male lying in bed in no distress RESPIRATORY SYSTEM: Unlabored breathing , decreased breath sounds at bases HEART: S1 S2 regular rate and rhythm , ABDOMEN: Soft , no tenderness EXTREMITIES: Left fifth toe amputation site wound is currently dressed no drainage on the dressing, and nursing staff who just change the dressing mention overall wound looks clean - Labs CBC & Chem 7: 12/27/23 12:01 12/27/23 12:01 Labs: Abnormal Lab Results - Last 24 Hours (Table) 12/27/23 12/27/23 12/27/23 Range/Units 12:01 12:01 16:45 RBC 3.42 L (4.30-5.90) m/uL Hgb 9.8 L (13.0-17.5) gm/dL Hct 30.1 L (39.0-53.0) % RDW 15.8 H (11.5-15.5) % Glucose 186 H (74-99) mg/dL POC Glucose (mg/dL) 178 H (70-110) mg/dL 12/27/23 12/28/23 Range/Units 20:40 06:04 RBC (4.30-5.90) m/uL Hgb (13.0-17.5) gm/dL Hct (39.0-53.0) % RDW (11.5-15.5) % Glucose (74-99) mg/dL POC Glucose (mg/dL) 152 H 163 H (70-110) mg/dL Assessment and Plan (1) Infected wound Current Visit: Yes Status: Acute Code(s): T14.8XXA - OTHER INJURY OF UNSPECIFIED BODY REGION, INITIAL ENCOUNTER; L08.9 - LOCAL INFECTION OF THE SKIN AND SUBCUTANEOUS TISSUE, UNSP SNOMED Code(s): 29482099 (2) Osteomyelitis Current Visit: Yes Status: Acute Code(s): M86.9 - OSTEOMYELITIS, UNSPECIFIED SNOMED Code(s): 05689778 (3) Sepsis Current Visit: Yes Status: Acute Code(s): A41.9 - SEPSIS, UNSPECIFIED ORGANI SM SNOMED Code(s): 51566680 Plan: 1patient presented to the hospital with sepsis/septic shock in this patient who did have a fever tachycardia hypotension source is likely left diabetic foot infection with a foul-smelling drainage abnormal x-ray concerning for underlying osteomyelitis we will need to cover for the polymicrobial iqra associated with a diabetic foot infection 2-patient is status post vascular surgery evaluation and amputation of the left fifth toe with deep cultures pending 3-patient cultures came back positive with Streptococcus agalactiae 4patient did have a extensive infection unfortunately the patient did pull out 2 of his PICC line and vascular surgery recommending no further PICC line placement patient does not seem to be an ideal candidate for outpatient IV antibiotic therapy at this point prescription for oral Augmentin has been sent and the patient will monitor closely outpatient local care to continue per the wound care team Dictation was produced using [employer] dictation software. please excuse any grammatical, word or spelling errors. Time with Patient: Less than 30
[2023-12-28 12:01] LABS: Glucose,Whole Blood 171 mg/dL (70-110)
--- NOTE | 2023-12-28 13:12 | P.DS ---
Providers Date of admission: 12/17/23 20:53 Expected date of discharge: 12/28/23 Attending physician: Umesh Holden Consults: 12/17/23 20:58 Consult Physician Urgent Consulting Provider: Maria T Henley Consult Reason/Comments: Infected wound left foot, sepsis, osteomyelitis Do you want consulting provider notified?: Yes 12/18/23 01:28 Consult Physician Urgent Consulting Provider: Nathaly Calloway Consult Reason/Comments: sepsis/hypotension Do you want consulting provider notified?: Already Contacted 12/18/23 03:11 Consult Physician Urgent Consulting Provider: Chapito Sanchez Consult Reason/Comments: Atrial fibrillation/Atrial flutter Do you want consulting provider notified?: Yes [facility]: Discharge diagnoses; -Acute left foot acute osteomyelitis of both the fifth proximal phalangeal base of the fifth metatarsal head and neck. -sepsis Being discharged on Augmentin per ID recommendations -Acute delirium Resolved -Lactic acidosis from sepsis resolved -Hyperthyroidism from oral placement Continue Synthroid -Diabetes mellitus type 2 on oral hypoglycemic Resume home meds -BPH Flomax -Atrial fibrillation flutter,rate controlled Lopressor 12.5 twice daily. [facility] course; This is a 73-year-old patient, with no family doctor. Family went to his house and found him to be altered mentation. Patient had had a bowel movement and was not aware of the same. Patient not sure about fever and chills. Slightly vague give during history taking. Patient is a wound on the left foot present for at least 2 months. Has not followed with a physician. Denies any pain in there. Able to walk around the house. Does live alone. December 19: Patient was agitated last night. Had to be given Haldol. Was kicking and screaming. Had to be in restraints. Doing much better this morning. Restraints taken off. Started on Resporal 1 mg at night. Later today Dr. Camarillo took the patient to the OR. Left fifth toe ray amputation carried out. December 20: Patient slept well last night. Doing well with the current dose of Haldol. This morning communicating well. Tolerated diet. On IV Unasyn. Wound culture growing Streptococcus agalactiae group B. Dressing changes in the foot per vascular. 12/21. Patient seen and examined. WBC 6, hemoglobin 8.7, platelet count 145, sodium 1 3, potassium 4.2, BUN 15, creatinine 0.78. States left foot pain has improved 12/22. Patient seen and examined. Laying comfortably in the bed states pain in left foot has improved. Vital signs stable 12/23. Patient seen and examined. Family wanted patient to be discharged to rehab. Currently case management working on placement to rehab facility. Patient needs Unasyn x 4 weeks on discharge patient benefit from a wound VAC for the local wound care. 12/24/2023 Patient is resting in the bed. Awake and alert. Patient was agitated and pulling out lines this morning. Was given a dose of Haldol 2 mg IV 1. Otherwise patient is being continued on Unasyn for left foot osteomyelitis. Wound care is following. Blood sugar is 164 this morning. Other laboratory data reviewed. 12/25/2023 Patient is sitting in the chair. Awake alert and oriented today. No agitation overnight. Otherwise patient is getting IV antibiotics of Unasyn. Also on anticoagulation with a decrease. Patient has been afebrile. Plan for PICC line tomorrow. 12/26/2023 Patient is sitting in the chair. Awake alert and oriented. No fever no chills. No cough or sputum production. Patient is getting IV antibiotics, Unasyn. PICC line was placed left upper extremity. Awaiting authorization for placement and IV antibiotics. ID and vascular surgery is on board. 12/28. Patient seen and examined. Being discharged in stable condition. PHYSICAL EXAMINATION: GENERAL: The patient is alert and oriented x3, not in any acute distress. Well developed, well nourished. HEENT: Pupils are round and equally reacting to light. EOMI. No scleral icterus. No conjunctival pallor. Normocephalic, atraumatic. No pharyngeal erythema. No thyromegaly. CARDIOVASCULAR: S1 and S2 present. No murmurs, rubs, or gallops. PULMONARY: Chest is clear to auscultation, no wheezing or crackles. ABDOMEN: Soft, nontender, nondistended, normoactive bowel sounds. No palpable organomegaly. MUSCULOSKELETAL: Left foot dressing seen EXTREMITIES: No cyanosis, clubbing, or pedal edema. NEUROLOGICAL: Gross neurological examination did not reveal any focal deficits. SKIN: No rashes. Dictation was produced using dragon dictation software. please excuse any grammatical, word or spelling errors. Patient Condition at Discharge: Stable Plan - Discharge Summary New Discharge Prescriptions: New Apixaban [Eliquis] 5 mg PO BID 30 Days #60 tab Levothyroxine Sodium 150 mcg PO DAILY #30 tab Amoxic-Pot Clav 875-125Mg [Augmentin 875-125] 1 tab PO Q12HR 30 Days #56 tab Metoprolol Tartrate [Lopressor] 12.5 mg PO BID 30 Days #60 tablet Continue Tamsulosin HCl [Flomax] 0.4 mg PO DAILY Atorvastatin [Lipitor] 40 mg PO DAILY Mv-Min/Folic/K1/Lycopen/Lutein [Centrum Silver Men Tablet] 1 tab PO DAILY metFORMIN HCL [Glucophage] 500 mg PO DAILY Aspirin EC [Ecotrin Low Dose] 81 mg PO DAILY Discontinued Metoprolol Tartrate [Lopressor] 50 mg PO DAILY Potassium Chloride ER [K-Dur 10] 10 meq PO DAILY Levothyroxine Sodium [Synthroid] 280 mcg PO DAILY Furosemide [Lasix] 20 mg PO DAILY Discharge Medication List Tamsulosin HCl [Flomax] 0.4 mg PO DAILY 04/11/15 [History] Atorvastatin [Lipitor] 40 mg PO DAILY 01/23/16 [History] metFORMIN HCL [Glucophage] 500 mg PO DAILY 04/01/22 [History] Aspirin EC [Ecotrin Low Dose] 81 mg PO DAILY 12/17/23 [History] Mv-Min/Folic/K1/Lycopen/Lutein [Centrum Silver Men Tablet] 1 tab PO DAILY 12/17/23 [History] Amoxic-Pot Clav 875-125Mg [Augmentin 875-125] 1 tab PO Q12HR 30 Days #56 tab 12/27/23 [Rx] Apixaban [Eliquis] 5 mg PO BID 30 Days #60 tab 12/27/23 [Rx] Levothyroxine Sodium 150 mcg PO DAILY #30 tab 12/27/23 [Rx] Metoprolol Tartrate [Lopressor] 12.5 mg PO BID 30 Days #60 tablet 12/27/23 [Rx] Follow up Appointment(s)/Referral(s): Pritesh Kraus MD [Primary Care Provider] - 1-2 Days (Please call Saturday to schedule appointment ) Justa Camarillo DO [STAFF PHYSICIAN] - 2 Weeks (Please call Saturday to schedule appointmnt ) [facility], [REFERRING] - ([facility] Care will call you to schedule your in home nursing visits to begin IV antibiotic teaching on: pending. ) [facility] [NON-STAFF] - 1 Week (Please call Saturday to schedule appointment) Maria T Henley MD [STAFF PHYSICIAN] - 1 Week (Please call Saturday to schedule appointment) Renan Zaragoza MD [STAFF PHYSICIAN] - 1 Week (Please call Saturday to schedule appointment) Patient Instructions/Handouts: Osteomyelitis (DC), Sepsis (DC) Discharge/Stand Alone Forms: Who Do I Call?, Adult Foster Shelter List, Assisted Living Facilities, Community Resources, Help In The Home, Personal General Maintenance Helper Discharge Disposition: HOME WITH HOME HEALTH SERVICES
--- NOTE | 2023-12-30 20:21 | P.PN ---
Subjective Progress Note Date: 12/27/23 This is a 73-year-old patient, with no family doctor. Family went to his house and found him to be altered mentation. Patient had had a bowel movement and was not aware of the same. Patient not sure about fever and chills. Slightly vague give during history taking. Patient is a wound on the left foot present for at least 2 months. Has not followed with a physician. Denies any pain in there. Able to walk around the house. Does live alone. December 19: Patient was agitated last night. Had to be given Haldol. Was kicking and screaming. Had to be in restraints. Doing much better this mornin g. Restraints taken off. Started on Resporal 1 mg at night. Later today Dr. Camarillo took the patient to the OR. Left fifth toe ray amputation carried out. December 20: Patient slept well last night. Doing well with the current dose of Haldol. This morning communicating well. Tolerated diet. On IV Unasyn. Wound culture growing Streptococcus agalactiae group B. Dressing changes in the foot per vascular. 12/21. Patient seen and examined. WBC 6, hemoglobin 8.7, platelet count 145, sodium 1 3, potassium 4.2, BUN 15, creatinine 0.78. States left foot pain has improved 12/22. Patient seen and examined. Laying comfortably in the bed states pain in left foot has improved. Vital signs stable 12/23. Patient seen and examined. Family wanted patient to be discharged to rehab. Currently case management working on placement to rehab facility. Patient needs Unasyn x 4 weeks on discharge patient benefit from a wound VAC for the local wound care. 12/24/2023 Patient is resting in the bed. Awake and alert. Patient was agitated and pulling out lines this morning. Was given a dose of Haldol 2 mg IV 1. Otherwise patient is being continued on Unasyn for left foot osteomyelitis. Wou nd care is following. Blood sugar is 164 this morning. Other laboratory data reviewed. 12/25/2023 Patient is sitting in the chair. Awake alert and oriented today. No agitation overnight. Otherwise patient is getting IV antibiotics of Unasyn. Also on anticoagulation with a decrease. Patient has been afebrile. Plan for PICC line tomorrow. 12/26/2023 Patient is sitting in the chair. Awake alert and oriented. No fever no chills. No cough or sputum production. Patient is getting IV antibiotics, Unasyn. PICC line was placed left upper extremity. Awaiting authorization for placement and IV antibiotics. ID and vascular surgery is on board. 12/27/2023 Patient is currently sitting in bedside. No complaints of chest pain or shortness of breath. Foot pain is controlled with medications. Patient has been afebrile. Mentation is much improved. Awake alert and oriented x 3. No complaints of chest pain or shortness of breath. No nausea vomiting or abdominal pain or diarrhea. Patient pulled out PICC line last night but does not recollect why he did it.. Vascular surgery is not recommending placing PICC line again at this point as patient is not a good candidate. Laboratory data showed WC 5.9 hemoglobin 9.8 and platelets 155 Sodium 137 potassium 4.4 chloride 106 bicarb is 26 BUN 19 and creatinine 0.78. REVIEW OF SYSTEMS: CONSTITUTIONAL: No fever, no malaise,. CARDIOVASCULAR: No chest pain, no palpitations, no syncope. PULMONARY: No shortness of breath, no cough, GASTROINTESTINAL: No diarrhea, no nausea, no vomiting, no abdominal pain. NEUROLOGICAL: No headaches, no weakness, PHYSICAL EXAMINATION: GENERAL: The patient is alert and oriented x3, not in any acute distress. Well developed, well nourished. HEENT: Pupils are round and equally reacting to light. EOMI. No scleral icterus. No conjunctival pallor. Normocephalic, atraumatic. No pharyngeal erythema. No thyromegaly. CARDIOVASCULAR: S1 and S2 present. No murmurs, rubs, or gallops. PULMONARY: Chest is clear to auscultation, no wheezing or crackles. ABDOMEN: Soft, nontender, nondistended, normoactive bowel sounds. No palpable organomegaly. MUSCULOSKELETAL: Left foot dressing seen EXTREMITIES: No cyanosis, clubbing, or pedal edema. NEUROLOGICAL: Gross neurological examination did not reveal any focal deficits. SKIN: No rashes. Assessment and plan -Acute left foot acute osteomyelitis of both the fifth proximal phalangeal base of the fifth metatarsal head and neck. -sepsis Monitor vital signs monitor CBC Monitor CMP Left fifth toe ray amputation by Dr. Camarillo on December 19 ID recommend Unasyn x 4 weeks on discharge Continue wound care, patient benefit from a wound VAC per ID Vascular and ID following Case management working on placement to rehab facility Patient pulled out PICC line and vascular surgery is not recommending placing central catheter again. Will discuss with ID for possible change to oral antibiotics -Acute delirium Resolved -Lactic acidosis from sepsis resolved -Hyperthyroidism from oral placement Continue Synthroid doses reduced to 150 -Diabetes mellitus type 2 on oral hypoglycemic Diabetic diet. Sliding scale insulin coverage -BPH Flomax -Atrial fibrillation flutter,rate controlled Lopressor 12.5 twice daily. Eliquis Labs and medication were reviewed.. Continue with symptomatic treatment. Resume home medication. Monitor labs and vitals. DVT and GI prophylaxis. Discussed with ID regarding possible change to oral antibiotics. If antibiotics can be changed to by mouth, patient can be discharged with her daughter at home. Anticipate discharge in the next 24 hours. Dictation was produced using [employer] dictation software. please excuse any grammatical, word or spelling errors. Objective - Vital Signs Vital signs: Vital Signs Temp 98.1 F 12/28/23 06:58 Pulse 77 12/28/23 06:58 Resp 17 12/28/23 06:58 BP 128/70 12/28/23 06:58 Pulse Ox 99 12/28/23 06:58 FiO2 - Labs CBC & Chem 7: 12/27/23 12:01 12/27/23 12:01
== END 2023-12-28 13:51 | disposition home health service (06) | DRG 853 ==
LOC: EC 17:54 → 3SCARD 20:53 → 2SICU 12-18 01:58 → 3SCARD 12-18 16:52 → 4SSUR 12-27 21:58
PROVIDERS: ADMIT Hospitalist; ATTEND Hospitalist
PROC: 0Y6N0ZF Detachment at Left Foot, Partial 5th Ray, Open Approach (ICD-10-PCS; principal; 2023-12-19 14:00)
PROC: 02HV33Z Insertion of Infusion Device into Superior Vena Cava, Percutaneous Approach (ICD-10-PCS; 2023-12-23)
PROC: 02HV33Z Insertion of Infusion Device into Superior Vena Cava, Percutaneous Approach (ICD-10-PCS; 2023-12-25)
DX: A41.89 Other specified sepsis (principal); G92.8 Other toxic encephalopathy; R65.21 Severe sepsis with septic shock; M86.172 Other acute osteomyelitis, left ankle and foot; E87.20 Acidosis, unspecified; M84.675A Pathological fracture in other disease, left foot, initial encounter for fracture; I48.92 Unspecified atrial flutter; E11.621 Type 2 diabetes mellitus with foot ulcer; I25.5 Ischemic cardiomyopathy; E11.69 Type 2 diabetes mellitus with other specified complication; R45.1 Restlessness and agitation; N40.0 Benign prostatic hyperplasia without lower urinary tract symptoms; E78.5 Hyperlipidemia, unspecified; I48.0 Paroxysmal atrial fibrillation; I25.10 Atherosclerotic heart disease of native coronary artery without angina pectoris; M19.90 Unspecified osteoarthritis, unspecified site; L08.9 Local infection of the skin and subcutaneous tissue, unspecified; L97.524 Non-pressure chronic ulcer of other part of left foot with necrosis of bone; E05.90 Thyrotoxicosis, unspecified without thyrotoxic crisis or storm; M10.9 Gout, unspecified; I25.2 Old myocardial infarction; Z87.891 Personal history of nicotine dependence; Z87.01 Personal history of pneumonia (recurrent); Z86.14 Personal history of Methicillin resistant Staphylococcus aureus infection; Z83.3 Family history of diabetes mellitus; Z11.52 Encounter for screening for COVID-19; Z88.1 Allergy status to other antibiotic agents; Z82.49 Family history of ischemic heart disease and other diseases of the circulatory system; Z79.890 Hormone replacement therapy; Z79.82 Long term (current) use of aspirin; Z79.899 Other long term (current) drug therapy; Z60.2 Problems related to living alone; Z78.1 Physical restraint status; Z09 Encounter for follow-up examination after completed treatment for conditions other than malignant neoplasm; Z79.84 Long term (current) use of oral hypoglycemic drugs; Z95.1 Presence of aortocoronary bypass graft; Z79.01 Long term (current) use of anticoagulants
CPT/HCPCS: 36415; 36573; 71045; 71046; 80048; 80053; 80202; 81003; 82272; 82565; 83605; 84439; 84443; 85025; 85027; 85610; 85730; 87040; 87070; 87075; 87205; 87636; 93005; 93306; 96361; 96365; 96366; 96367; 96368; 99291